=== PATIENT | female | born 1945 | race American Indian/Alaskan Native ===

== ENCOUNTER 2017-02-01 23:03 | Inpatient (IN) | payer SELFPAY ==
[2017-02-01] MEDS ORDERED: DUONEB *Not for PRN Use IH ONE (23:35)
[2017-02-01] MEDS ORDERED: NACL 0.9% 1000 ML 1,000 ML ONE (23:42)
[2017-02-01] MEDS ORDERED: QUELICIN IV ONE (23:46)
[2017-02-02] MEDS ORDERED: DIPRIVAN 10 MG/ML 1,000 MG/100 ML BOTTLE IV ONE
--- NOTE | 2017-02-02 00:01 | Emergency Department Report ---
ED Shortness of Breath HPI - General Chief Complaint: Dyspnea/Respdistress Stated Complaint: DIFFICULTY IN BREATHING Time Seen by Provider: 02/01/17 23:55 Source: patient Mode of arrival: Wheelchair Limitations: No Limitations - History of Present Illness Initial Comments: Patient is a 71-year-old female that presents to er with altered mental status, shortness of breath, chest pain, and respiratory distress. She has no past medical history per family but has not seen a doctor many years. Patient had recently moved to the [facility] 4 months ago. No fever or chills. MD Complaint: shortness of breath, chest pain -: Sudden Severity: severe Pain Scale: 8 Quality: stabbing Consistency: constant Improves With: rest Worsens With: lying flat Associated Symptoms: chest pain, pain with inspiration Treatments Prior to Arrival: none - Related Data Home Oxygen Therapy: No Allergies Allergy/AdvReac Type Severity Reaction Status Date / Time No Known Allergies Allergy Verified 02/01/17 23:49 ED Review of Systems ROS: Stated complaint: DIFFICULTY IN BREATHING Other details as noted in HPI Comment: Unobtainable due to pts medical conditions ED Past Medical Hx - Past Medical History Previous Medical History?: No - Social History Smoking Status: Unknown if ever smoked ED Physical Exam - General Limitations: Language Barrier, Altered Mental Status General appearance: alert, in distress - Head Head exam: Present: atraumatic, normocephalic - Eye Eye exam: Present: normal appearance, PERRL Pupils: Present: normal accommodation - Respiratory Respiratory exam: Present: respiratory distress, wheezes, rhonchi, accessory muscle use, decreased breath sounds, other (supraclavicular retractions noted. Intercostal retractions noted) - Cardiovascular Cardiovascular Exam: Present: normal rhythm, tachycardia - GI/Abdominal GI/Abdominal exam: Present: soft - Rectal Rectal exam: Present: deferred - Extremities Exam Extremities exam: Present: normal inspection, full ROM - Back Exam Back exam: Present: normal inspection, full ROM - Neurological Exam Neurological exam: Present: altered - Skin Skin exam: Present: warm, diaphoretic, pallor ED Course Vital Signs 02/01/17 02/01/17 02/02/17 23:20 23:47 00:01 Temperature 98.1 F Pulse Rate 126 H 132 H 113 H Respiratory 18 32 H 18 Rate Blood Pressure 243/154 240/154 202/122 Blood Pressure [Left] O2 Sat by Pulse 76 L 89 Oximetry 02/02/17 02/02/17 02/02/17 00:15 00:30 00:45 Temperature Pulse Rate 105 H 103 H 101 H Respiratory 14 17 17 Rate Blood Pressure 142/99 133/91 144/96 Blood Pressure [Left] O2 Sat by Pulse Oximetry 02/02/17 02/02/17 02/02/17 00:46 01:00 01:15 Temperature Pulse Rate 100 H 100 H 97 H Respiratory 477 H 15 17 Rate Blood Pressure 149/96 151/96 155/95 Blood Pressure [Left] O2 Sat by Pulse 100 Oximetry 02/02/17 02/02/17 02/02/17 01:30 01:45 02:00 Temperature Pulse Rate 96 H 96 H 91 H Respiratory 16 15 14 Rate Blood Pressure 142/93 176/107 141/83 Blood Pressure [Left] O2 Sat by Pulse Oximetry 02/02/17 02/02/17 02/02/17 02:15 02:23 02:30 Temperature Pulse Rate 91 H 100 H 90 Respiratory 14 477 H 14 Rate Blood Pressure 140/84 149/96 157/98 Blood Pressure [Left] O2 Sat by Pulse 100 Oximetry 02/02/17 02/02/17 02/02/17 02:45 03:00 03:15 Temperature Pulse Rate 91 H 89 96 H Respiratory 14 14 14 Rate Blood Pressure 165/104 160/97 186/111 Blood Pressure [Left] O2 Sat by Pulse Oximetry 02/02/17 02/02/17 02/02/17 03:55 04:19 04:30 Temperature Pulse Rate 100 H 107 H 100 H Respiratory 18 15 16 Rate Blood Pressure 162/99 162/101 Blood Pressure 183/102 [Left] O2 Sat by Pulse 99 Oximetry - Reevaluation(s) Reevaluation #1: 02/02/17 0050. Patient intubated. Oxygenation good. Lasix given Reevaluation #2: 02/02/17 03:00. Lung sounds have improved. D-dimer elevated awaiting VQ scan - Intubation Time Out Performed: Yes Sedative: Versed Paralytic: Succinylcholine Laryngoscope: Marizol Size: 3 ET Tube Size: 7.5 Tube Secured Depth (cm): 23 Tube Secured Location: teeth Tube Placement Confirmation: visualized tube passing t, equal breath sounds bilat, no breath sounds over epi, confirmation by capnometr Patient Tolerated Procedure: well, other Intubation Complications: none Additional Comments: Patient intubated due to hypoxia and work to breathe. Positive retractions. ED Medical Decision Making - Lab Data Result diagrams: 02/01/17 Unknown 02/01/17 Unknown - EKG Data -: EKG Interpreted by Me EKG shows normal: sinus rhythm Rate: tachycardia - EKG Data Interpretation: LVH - Radiology Data Radiology results: image reviewed Critical Care Time: Yes Critical care time in (mins) excluding proc time.: 60 (60 minutes) Critical care attestation.: If time is entered above; I have spent that time in minutes in the direct care of this critically ill patient, excluding procedure time. Critical Care Time: 60 minutes spent with patient separate from procedure time. ED Disposition Clinical Impression: Respiratory failure, Shortness of breath, Hypoxia, Respiratory distress, CHF exacerbation, Pneumonia, Acute renal insufficiency, Elevated lactic acid level Disposition: OP ADMIT IP TO THIS HOSP Is pt being admited?: Yes Does the pt Need Aspirin: No Condition: Critical Instructions: Bacterial Pneumonia (ED)
[2017-02-02] MEDS ORDERED: NACL 0.9% 1000 ML 1,000 ML IV ONE (00:02)
[2017-02-02] MEDS ORDERED: VERSED IV ONE ×2 (00:02→23:45)
[2017-02-02] MEDS: DIPRIVAN 10 MG/ML 1,000 MG/100 ML BOTTLE IV SCH ×3 (00:06→14:35)
[2017-02-02] MEDS ORDERED: LOPRESSOR IV ONE ×2 (00:10→02:30)
[2017-02-02 00:14] LABS: Basophils % (Auto) 0.9 % (0.0-1.8); Eosinophils % (Auto) 3.1 % (0.0-4.3); Hematocrit 39.7 % (30.3-42.9); Hemoglobin 12.7 gm/dl (10.1-14.3); Mean Corpuscular HGB Conc 32 % (30-34); Mean Corpuscular Hemoglobin 28 pg (28-32); Mean Corpuscular Volume 87 fl (79-97); Red Blood Count 4.56 M/mm3 (3.65-5.03); Red Cell Distribution Width 15.1 % (13.2-15.2); White Blood Count 10.2 K/mm3 (4.5-11.0)
[2017-02-02 00:22] LABS: Platelet Count 150 K/mm3 (140-440)
[2017-02-02] MEDS ORDERED: ADRENALIN ONE (00:24)
[2017-02-02] MEDS ORDERED: CALCIUM CHLORIDE IV ONE (00:24)
[2017-02-02] MEDS ORDERED: SODIUM BICARBONATE IV ONE (00:24)
[2017-02-02] MEDS ORDERED: VASELINE LIP THERAPY TP PRN ×2 (00:31→02:22)
[2017-02-02] MEDS ORDERED: ARTIFICIAL TEARS OPHTH OINT OU PRN ×2 (00:31→02:22)
[2017-02-02] MEDS ORDERED: QUELICIN IV ONE (00:51)
[2017-02-02] MEDS ORDERED: VERSED IV NR ×3 (00:55→01:00)
[2017-02-02 01:04] LABS: ISTAT Base Excess 0; ISTAT HCO3 26.8; ISTAT PCO2 53.9 (35-45); ISTAT PH 7.305 (7.35-7.45); ISTAT PO2 371 (80-105); ISTAT SO2 100; ISTAT TCO2 28
[2017-02-02 01:24] LABS: Albumin 4.2 g/dL (3.9-5); Albumin/Globulin Ratio 1.2 %; Bilirubin,Total 0.4 mg/dL (0.1-1.2); Calcium 9.2 mg/dL (8.4-10.2); Chloride 101.3 mmol/L (98-107); Potassium 4.1 mmol/L (3.6-5.0); Total Protein 7.6 g/dL (6.3-8.2)
[2017-02-02] MEDS ORDERED: LASIX IV ONE ×2 (01:52→01:56)
[2017-02-02] MEDS ORDERED: LASIX ONE (01:55)
--- NOTE | 2017-02-02 04:00 | Cat Scan Report ---
FINAL REPORT EXAM: CT HEAD/BRAIN WO CON HISTORY: ams TECHNIQUE: Routine axial imaging was obtained of the brain without IV contrast. FINDINGS: There [id number] generalized volume loss. There is diminished attenuation of the periventricular and deep white matter compatible with chronic microvascular disease changes. There is no evidence of acute stroke or hemorrhage. The basal cisterns appear normal. The visualized sinuses are clear. The mastoid air cells are well pneumatized. The calvarium appears intact. IMPRESSION: [id number] atrophy with severe chronic ischemic white matter changes. No evidence of acute stroke or hemorrhage.
[2017-02-02] MEDS ORDERED: PROVENTIL IH ONE ×2 (04:24→09:44)
--- NOTE | 2017-02-02 05:05 | XRay Report ---
FINAL REPORT EXAM: XR CHEST 1V AP HISTORY: sob. post intubation TECHNIQUE: AP portable view(s) of the chest obtained. Note: Examination was obtained on 02/01/2017 but not submitted for interpretation until 02/02/2017 PRIORS: None. FINDINGS: Endotracheal tube terminates approximately 7 cm from the angel. An enteric tube courses below the diaphragm and off of the inferior field of view. Heart size is within normal limits for technique. Prominent aortic arch, which may be due to patient rotation or tortuosity. No mediastinal shift. No pneumothorax. The right costophrenic angle is excluded from the field of view. No significant pleural effusion identified. Ill-defined right upper and left lower lung opacities. IMPRESSION: Satisfactory appearance of support apparatus. Ill-defined opacities in the right upper and left lower lungs may represent infection in the proper clinical setting. Chest radiographic follow-up is suggested.
[2017-02-02] MEDS ORDERED: ZOSYN/NS 2.25 GM/50ML 2.25 GM/50 ML BAG IV ONE (05:29)
[2017-02-02 05:58] LABS: ISTAT Base Excess 3; ISTAT HCO3 26.8; ISTAT PCO2 39.3 (35-45); ISTAT PH 7.442 (7.35-7.45); ISTAT PO2 69 (80-105); ISTAT SO2 94; ISTAT TCO2 28
[2017-02-02] MEDS: HEPARIN SUB-Q SCH ×3 (10:00→22:18)
[2017-02-02] MEDS ORDERED: HEPARIN ONE (10:01)
--- NOTE | 2017-02-02 11:46 | History and Physical Report ---
History of Present Illness Date of examination: 02/02/17 Date of admission: 02/02/17 07:35 Chief complaint: Shortness of breath History of present illness: 71-year-old -[place] female brought in via EMS for shortness of breath, altered mental status. I couldn't get any history or review of systems because the patient is intubated. I couldn't get in touch with the family, I called her son at [phone] but he didn't pickup his phone. Per ED report patient presented with shortness of breath, didn't have any past medical history, didn' t see a doctor for many years, she came from [place] 4 months ago. Past History Past Medical History: No medical history, other (couldn't obtained because of intubation and no family member) Past Surgical History: No surgical history, Other (couldn't obtained because of intubation and no family member) Social history: other (couldn't obtained because of intubation and no family member) Family history: other (couldn't obtained because of intubation and no family member) Medications and Allergies Allergies Allergy/AdvReac Type Severity Reaction Status Date / Time No Known Allergies Allergy Verified 02/01/17 23:49 Active Meds: Active Medications Heparin Sodium (Porcine) (Heparin) 5,000 unit SUB-Q Q8HR KATY Last Admin: 02/02/17 10:00 Dose: 5,000 unit Hydrophilic Ointment (Vaseline Lip Therapy) 1 applic TP Q2HR PRN PRN Reason: Dry Lips Propofol (Diprivan 10 Mg/Ml) 1,000 mg in 100 mls @ 1.83 mls/hr IV TITR KATY; 5 MCG/KG/MIN PRN Reason: Protocol Last Admin: 02/02/17 09:34 Dose: 40 mcg/kg/min, 14.64 mls/hr Multi-Ingred Cream/Lotion/Oil/Oint (Artificial Tears Ophth Oint) 1 applic OU Q4HR PRN PRN Reason: Dry Eye(s) Review of Systems ROS unobtainable: due to endotracheal tube (couldn't obtained because of intubation and no family member) Exam - Physical Exam Narrative exam: Patient is intubated, patient is awake and she can answer yes/ no questions by nodding her head. The patient appeared well nourished and normally developed. Vital signs as documented. Head exam is unremarkable. No scleral icterus . Neck is without jugular venous distension, thyromegaly, or carotid bruits. Lungs wheezing all over the chest. Cardiac exam reveals regular rate and Rhythm. First and second heart sounds normal. No murmurs, rubs or gallops. Abdominal exam reveals normal bowel sounds, no masses, no organomegaly and no aortic enlargement. Extremities are nonedematous and both femoral and pedal pulses are normal. 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 by nodding her head - Constitutional Vitals: Temp Pulse Resp BP Pulse Ox 98.1 F 92 H 14 126/80 100 02/01/17 23:20 02/02/17 11:15 02/02/17 11:15 02/02/17 11:15 02/02/17 11:15 Results - Labs CBC & Chem 7: 02/01/17 Unknown 02/01/17 Unknown Labs: Laboratory Last Values WBC 10.2 K/mm3 (4.5-11.0) 02/01/17 Unknown RBC 4.56 M/mm3 (3.65-5.03) 02/01/17 Unknown Hgb 12.7 gm/dl (10.1-14.3) 02/01/17 Unknown Hct 39.7 % (30.3-42.9) 02/01/17 Unknown MCV 87 fl (79-97) 02/01/17 Unknown MCH 28 pg (28-32) 02/01/17 Unknown MCHC 32 % (30-34) 02/01/17 Unknown RDW 15.1 % (13.2-15.2) 02/01/17 Unknown Plt Count 150 K/mm3 (140-440) 02/01/17 Unknown Lymph % (Auto) 19.8 % (13.4-35.0) 02/01/17 Unknown [place] % (Auto) 6.6 % (0.0-7.3) 02/01/17 Unknown Eos % (Auto) 3.1 % (0.0-4.3) 02/01/17 Unknown Baso % (Auto) 0.9 % (0.0-1.8) 02/01/17 Unknown Lymph # 2.0 K/mm3 (1.2-5.4) 02/01/17 Unknown [place] # 0.7 K/mm3 (0.0-0.8) 02/01/17 Unknown Eos # 0.3 K/mm3 (0.0-0.4) 02/01/17 Unknown Baso # 0.1 K/mm3 (0.0-0.1) 02/01/17 Unknown Seg Neutrophils % 69.6 % (40.0-70.0) 02/01/17 Unknown Seg Neutrophils # 7.1 K/mm3 (1.8-7.7) 02/01/17 Unknown D-Dimer 1146.84 ng/mlDDU (0-234) H 02/01/17 Unknown POC ABG pH 7.442 (7.35-7.45) 02/02/17 05:54 POC ABG pCO2 39.3 (35-45) 02/02/17 05:54 POC ABG pO2 69 (80-105) L 02/02/17 05:54 POC ABG HCO3 26.8 02/02/17 05:54 POC ABG Total CO2 28 02/02/17 05:54 POC ABG O2 Sat 94 02/02/17 05:54 POC ABG Base Excess 3 02/02/17 05:54 FiO2 40 % 02/02/17 05:54 Sodium 144 mmol/L (137-145) 02/01/17 Unknown Potassium 4.1 mmol/L (3.6-5.0) 02/01/17 Unknown Chloride 101.3 mmol/L (98-107) 02/01/17 Unknown Carbon Dioxide 20 mmol/L (22-30) L 02/01/17 Unknown Anion Gap 27 mmol/L 02/01/17 Unknown BUN 29 mg/dL (7-17) H 02/01/17 Unknown Creatinine 1.5 mg/dL (0.7-1.2) H 02/01/17 Unknown Estimated GFR 42 ml/min 02/01/17 Unknown BUN/Creatinine Ratio 19 % 02/01/17 Unknown Glucose 244 mg/dL (65-100) H 02/01/17 Unknown Lactic Acid 3.10 mmol/L (0.7-2.0) H* 02/01/17 Unknown Calcium 9.2 mg/dL (8.4-10.2) 02/01/17 Unknown Total Bilirubin 0.40 mg/dL (0.1-1.2) 02/01/17 Unknown AST 168 units/L (5-40) H 02/01/17 Unknown ALT 148 units/L (7-56) H 02/01/17 Unknown Alkaline Phosphatase 83 units/L (35-129) 02/01/17 Unknown Total Creatine Kinase 79 units/L (30-135) 02/01/17 Unknown CK-MB (CK-2) 3.0 ng/mL (0.0-4.0) 02/01/17 Unknown CK-MB (CK-2) Rel Index 3.7 (0-4) 02/01/17 Unknown Troponin T 0.020 ng/mL (0.00-0.029) 02/01/17 Unknown NT-Pro-B Natriuret Pep 9824 pg/mL (0-900) H 02/01/17 Unknown Total Protein 7.6 g/dL (6.3-8.2) 02/01/17 Unknown Albumin 4.2 g/dL (3.9-5) 02/01/17 Unknown Albumin/Globulin Ratio 1.2 % 02/01/17 Unknown Assessment and Plan Assessment and plan: Acute hypoxic respiratory failure Sepsis Pneumonia Acute kidney injury Lactic acidosis - Patient is intubated and on mechanical ventilation - Patient is managed according to sepsis protocol with IV antibiotics and IV fluids - Patient is on Solu-Medrol, DuoNeb's DVT prophylaxis -Heparin Disposition - Admit to ICU Advance Directives: Yes VTE prophylaxis?: Chemical Plan of care discussed with patient/family: Yes
[2017-02-02] MEDS ORDERED: VANCOMYCIN PHARMACY TO DOSE IV SCH (12:00)
[2017-02-02] MEDS: ZOSYN/NS 3.375GM/50ML 3.375 GM/50 ML BAG IV SCH ×2 (13:37→19:09)
--- NOTE | 2017-02-02 14:32 | Consultation ---
History of Present Illness Consult date: 02/02/17 Requesting physician: ROD FELIZ Reason for consult: other History of present illness: 71 y/o female, apparently brought in by family for altered mental status. Intubated in ED and placed on diprovan 40. CXR reveals cardiomegaly and what appears to be pulmonary edema. Patient is comatose from sedation, down to 40% FiO2 with sat of 100. No family at bedside. Apparently just moved to [place] from [place] 4 months ago. Past History Past Medical History: No medical history, other (couldn't obtained because of intubation and no family member) Past Surgical History: No surgical history, Other (couldn't obtained because of intubation and no family member) Social history: other (couldn't obtained because of intubation and no family member) Family history: other (couldn't obtained because of intubation and no family member) Medications and Allergies Allergies Allergy/AdvReac Type Severity Reaction Status Date / Time No Known Allergies Allergy Verified 02/01/17 23:49 Active Meds: Active Medications Albuterol/Ipratropium (Duoneb *Not For Prn Use*) 1 ampul IH Q4HRT KATY Heparin Sodium (Porcine) (Heparin) 5,000 unit SUB-Q Q8HR KATY Last Admin: 02/02/17 10:00 Dose: 5,000 unit Hydrophilic Ointment (Vaseline Lip Therapy) 1 applic TP Q2HR PRN PRN Reason: Dry Lips Propofol (Diprivan 10 Mg/Ml) 1,000 mg in 100 mls @ 1.83 mls/hr IV TITR KATY; 5 MCG/KG/MIN PRN Reason: Protocol Last Admin: 02/02/17 09:34 Dose: 40 mcg/kg/min, 14.64 mls/hr Piperacillin Sod/Tazobactam Sod (Zosyn/Ns 3.375gm/50ml) 3.375 gm in 50 mls @ 100 mls/hr IV Q6HR KATY PRN Reason: Protocol Last Admin: 02/02/17 13:37 Dose: 100 mls/hr Vancomycin HCl 1,250 mg/ (Sodium Chloride) 262.5 mls @ 166.667 mls/hr IV ONCE ONE Stop: 02/02/17 16:34 Methylprednisolone Sodium Succinate (Solu-Medrol) 60 mg IV Q8HR KATY Multi-Ingred Cream/Lotion/Oil/Oint (Artificial Tears Ophth Oint) 1 applic OU Q4HR PRN PRN Reason: Dry Eye(s) Vancomycin HCl (Vancomycin Pharmacy To Dose) 1 each IV PKCONSULT KATY PRN Reason: Protocol Review of Systems ROS unobtainable: due to endotracheal tube, due to mental status Physical Examination Vital signs: Vital Signs Temp Pulse Resp BP Pulse Ox 98.1 F 126 H 18 243/154 76 L 02/01/17 23:20 02/01/17 23:20 02/01/17 23:20 02/01/17 23:20 02/01/17 23:20 General appearance: comatose (secondary to sedation) Eyes: non-icteric ENT: other (orally intubated and sedated) Effort: normal Ascultation: Bilateral: diminished breath sounds, rales Percussion: Bilateral: not dull Cardiovascular: regular rate and rhythm Gastrointestinal: soft, non-tender Extremities: edema Results - Laboratory Findings CBC and BMP: 02/01/17 Unknown 02/01/17 Unknown ABG POC ABG pH 7.442 (7.35-7.45) 02/02/17 05:54 POC ABG pCO2 39.3 (35-45) 02/02/17 05:54 POC ABG pO2 69 (80-105) L 02/02/17 05:54 POC ABG HCO3 26.8 02/02/17 05:54 POC ABG Total CO2 28 02/02/17 05:54 POC ABG O2 Sat 94 02/02/17 05:54 PT/INR, D-dimer D-Dimer 1146.84 ng/mlDDU (0-234) H 02/01/17 Unknown Abnormal lab findings: Abnormal Labs 02/01/17 02/01/17 02/01/17 Unknown Unknown Unknown D-Dimer 1146.84 H POC ABG pH POC ABG pCO2 POC ABG pO2 Carbon Dioxide 20 L BUN 29 H Creatinine 1.5 H Glucose 244 H Lactic Acid 3.10 H* AST 168 H ALT 148 H NT-Pro-B Natriuret Pep 9824 H 02/02/17 02/02/17 00:46 05:54 D-Dimer POC ABG pH 7.305 L POC ABG pCO2 53.9 H POC ABG pO2 371 H 69 L Carbon Dioxide BUN Creatinine Glucose Lactic Acid AST ALT NT-Pro-B Natriuret Pep - Diagnostic Findings Chest x-ray: image reviewed Assessment and Plan 71 y/o female with encephalopathy and acute respiratory failure. 1. Will ask nursing to wean Diprovan therapy for RASS of 2 or Gonzalez of 0 2. Strict I/O therapy 3. Suggest echo 4. Also will order CT of chest, noncontrast given diffuse nature/presentation of lung disease 5. Ok with abx therapy, would stop steroids, not sure what those have been added for. CCT 31 minutes
[2017-02-02] MEDS: DUONEB *Not for PRN Use IH SCH ×3 (14:49→23:27)
[2017-02-02] MEDS ORDERED: VANCOMYCIN 1,250 MG in NACL 0.9% 250ML 250 ML IV ONE (15:00)
[2017-02-02] MEDS ORDERED: QUELICIN ONE (23:45)
[2017-02-03] MEDS: DIPRIVAN 10 MG/ML 1,000 MG/100 ML BOTTLE IV SCH ×2 (02:03→23:44)
[2017-02-03] MEDS: ZOSYN/NS 3.375GM/50ML 3.375 GM/50 ML BAG IV SCH (02:18)
[2017-02-03] MEDS: DUONEB *Not for PRN Use IH SCH ×4 (03:33→18:04)
[2017-02-03] MEDS: HEPARIN SUB-Q SCH ×3 (05:57→23:43)
--- NOTE | 2017-02-03 07:36 | XRay Report ---
Portable chest: Followup respiratory failure. Comparison is made to prior exam of February 02. The vascular pattern appears generally improved with only mild changes of interstitial edema in the lower right lung. There is evidence of persistent left effusion with no significant right effusion identified. The heart is enlarged but is no overt vascular congestion. Endotracheal and nasogastric tubes remain in good positions. Impressions: Resolving pulmonary edema.
[2017-02-03] MEDS: PEPCID IV SCH (09:44)
[2017-02-03] MEDS ORDERED: ZOSYN/NS 3.375GM/50ML 3.375 GM/50 ML BAG IV SCH (10:00)
[2017-02-03] MEDS ORDERED: Fluarix Quad 2017-2018(36 MOS+ IM ONE (12:00)
[2017-02-03] MEDS ORDERED: PNEUMOVAX 23 IM ONE (12:00)
--- NOTE | 2017-02-03 14:22 | Nuclear Medicine Report ---
Perfusion lung scan: SOB. Perfusion imaging with multiple projections demonstrates a generally unremarkable distribution of radionuclide considering an enlarged heart. There is however a linear deficiency in the region of the right hilum. No other significant findings. Impressions: Low probability of pulmonary embolus.
--- NOTE | 2017-02-03 14:44 | Progress Note ---
Assessment and Plan Imp: 1. Acute CHF/pulm edema 2. Acute respiratory failure, hypoxia 3. Lactic acidosis 2/2 above 4. Chest pain, r/o ischemic heart disease 5. STEPHANIE Rec: 1. Extubate; she meets all criteria 2. Add Lopressor PO BID 3. Repeat lactic acid and another set of cardiac enzymes; repeat CBC, CMP in AM 4. D/c steroids and ABX 5. Echo YULISSA 6. DVT and GI PPx 7. Further plans pending Echo CCT 31 minutes Plan of care reviewed w/ patient's family, they understand/agree Subjective Date of service: 02/03/17 Principal diagnosis: Acute respiratory failure Interval history: No events. On PSV 12/12 all morning with RSBI less than 105, normal RR, good TVs , no SOB, respiratory distress or other complaints. She is wide awake, off sedation. Active Medications Albuterol (Proventil) 2.5 mg IH Q6HRT PRN PRN Reason: Shortness Of Breath Famotidine (Pepcid) 20 mg IV DAILY [facility] Last Admin: 02/03/17 09:44 Dose: 20 mg Heparin Sodium (Porcine) (Heparin) 5,000 unit SUB-Q Q8HR [facility] Last Admin: 02/03/17 05:57 Dose: 5,000 unit Hydrophilic Ointment (Vaseline Lip Therapy) 1 applic TP Q2HR PRN PRN Reason: Dry Lips Metoprolol Tartrate (Lopressor) 25 mg PO BID [facility] Multi-Ingred Cream/Lotion/Oil/Oint (Artificial Tears Ophth Oint) 1 applic OU Q4HR PRN PRN Reason: Dry Eye(s) Objective Vital Signs - 12hr 02/03/17 02/03/17 02/03/17 02:41 02:51 03:00 Temperature Pulse Rate 84 77 78 Pulse Rate [ Anterior Bilateral Throughout] Pulse Rate [ Dorsalis Pedis] Pulse Rate [ From Monitor] Pulse Rate [ Posterior Bilateral Bases ] Respiratory 14 14 17 Rate Respiratory Rate [Anterior Bilateral Throughout] Respiratory Rate [Posterior Bilateral Bases] Blood Pressure 145/89 166/101 164/102 O2 Sat by Pulse 99 100 98 Oximetry 02/03/17 02/03/17 02/03/17 03:04 03:11 03:21 Temperature Pulse Rate 71 72 Pulse Rate [ Anterior Bilateral Throughout] Pulse Rate [ Dorsalis Pedis] Pulse Rate [ From Monitor] Pulse Rate [ Posterior Bilateral Bases ] Respiratory 17 15 15 Rate Respiratory Rate [Anterior Bilateral Throughout] Respiratory Rate [Posterior Bilateral Bases] Blood Pressure 164/102 158/93 O2 Sat by Pulse 99 99 100 Oximetry 02/03/17 02/03/17 02/03/17 03:27 03:30 03:33 Temperature Pulse Rate 73 72 Pulse Rate [ 73 Anterior Bilateral Throughout] Pulse Rate [ Dorsalis Pedis] Pulse Rate [ From Monitor] Pulse Rate [ Posterior Bilateral Bases ] Respiratory 14 Rate Respiratory 15 Rate [Anterior Bilateral Throughout] Respiratory Rate [Posterior Bilateral Bases] Blood Pressure 158/93 147/88 O2 Sat by Pulse 100 99 Oximetry 02/03/17 02/03/17 02/03/17 03:39 03:41 03:51 Temperature 97.9 F Pulse Rate 73 75 Pulse Rate [ Anterior Bilateral Throughout] Pulse Rate [ Dorsalis Pedis] Pulse Rate [ From Monitor] Pulse Rate [ Posterior Bilateral Bases ] Respiratory 15 14 Rate Respiratory Rate [Anterior Bilateral Throughout] Respiratory Rate [Posterior Bilateral Bases] Blood Pressure 147/88 135/83 O2 Sat by Pulse 99 99 Oximetry 02/03/17 02/03/17 02/03/17 04:00 04:11 04:21 Temperature Pulse Rate 74 73 71 Pulse Rate [ Anterior Bilateral Throughout] Pulse Rate [ Dorsalis Pedis] Pulse Rate [ From Monitor] Pulse Rate [ Posterior Bilateral Bases ] Respiratory 14 14 14 Rate Respiratory Rate [Anterior Bilateral Throughout] Respiratory Rate [Posterior Bilateral Bases] Blood Pressure 129/81 129/81 144/91 O2 Sat by Pulse 98 100 100 Oximetry 02/03/17 02/03/17 02/03/17 04:30 04:41 04:51 Temperature Pulse Rate 70 67 69 Pulse Rate [ Anterior Bilateral Throughout] Pulse Rate [ Dorsalis Pedis] Pulse Rate [ From Monitor] Pulse Rate [ Posterior Bilateral Bases ] Respiratory 15 15 15 Rate Respiratory Rate [Anterior Bilateral Throughout] Respiratory Rate [Posterior Bilateral Bases] Blood Pressure 145/86 145/86 138/85 O2 Sat by Pulse 99 100 100 Oximetry 02/03/17 02/03/17 02/03/17 05:00 05:05 05:11 Temperature Pulse Rate 69 68 Pulse Rate [ Anterior Bilateral Throughout] Pulse Rate [ 77 Dorsalis Pedis] Pulse Rate [ From Monitor] Pulse Rate [ Posterior Bilateral Bases ] Respiratory 15 100 H 14 Rate Respiratory Rate [Anterior Bilateral Throughout] Respiratory Rate [Posterior Bilateral Bases] Blood Pressure 135/85 135/85 O2 Sat by Pulse 99 100 100 Oximetry 02/03/17 02/03/17 02/03/17 05:21 05:30 05:41 Temperature Pulse Rate 69 68 67 Pulse Rate [ Anterior Bilateral Throughout] Pulse Rate [ Dorsalis Pedis] Pulse Rate [ From Monitor] Pulse Rate [ Posterior Bilateral Bases ] Respiratory 14 15 14 Rate Respiratory Rate [Anterior Bilateral Throughout] Respiratory Rate [Posterior Bilateral Bases] Blood Pressure 138/80 138/84 138/84 O2 Sat by Pulse 100 99 100 Oximetry 02/03/17 02/03/17 02/03/17 05:51 06:00 06:11 Temperature Pulse Rate 68 68 67 Pulse Rate [ Anterior Bilateral Throughout] Pulse Rate [ Dorsalis Pedis] Pulse Rate [ From Monitor] Pulse Rate [ Posterior Bilateral Bases ] Respiratory 15 16 16 Rate Respiratory Rate [Anterior Bilateral Throughout] Respiratory Rate [Posterior Bilateral Bases] Blood Pressure 141/84 139/85 139/85 O2 Sat by Pulse 100 100 99 Oximetry 02/03/17 02/03/17 02/03/17 06:21 06:30 06:41 Temperature Pulse Rate 70 68 68 Pulse Rate [ Anterior Bilateral Throughout] Pulse Rate [ Dorsalis Pedis] Pulse Rate [ From Monitor] Pulse Rate [ Posterior Bilateral Bases ] Respiratory 16 17 17 Rate Respiratory Rate [Anterior Bilateral Throughout] Respiratory Rate [Posterior Bilateral Bases] Blood Pressure 155/98 153/96 155/98 O2 Sat by Pulse 98 99 99 Oximetry 02/03/17 02/03/17 02/03/17 06:51 07:00 07:11 Temperature Pulse Rate 67 75 72 Pulse Rate [ Anterior Bilateral Throughout] Pulse Rate [ Dorsalis Pedis] Pulse Rate [ From Monitor] Pulse Rate [ Posterior Bilateral Bases ] Respiratory 17 17 15 Rate Respiratory Rate [Anterior Bilateral Throughout] Respiratory Rate [Posterior Bilateral Bases] Blood Pressure 151/91 158/100 153/96 O2 Sat by Pulse 100 98 99 Oximetry 02/03/17 02/03/17 02/03/17 07:21 07:30 07:41 Temperature Pulse Rate 68 71 75 Pulse Rate [ Anterior Bilateral Throughout] Pulse Rate [ Dorsalis Pedis] Pulse Rate [ From Monitor] Pulse Rate [ Posterior Bilateral Bases ] Respiratory 16 15 15 Rate Respiratory Rate [Anterior Bilateral Throughout] Respiratory Rate [Posterior Bilateral Bases] Blood Pressure 164/98 158/102 158/102 O2 Sat by Pulse 99 98 99 Oximetry 02/03/17 02/03/17 02/03/17 07:51 07:55 08:00 Temperature 98.3 F Pulse Rate 74 84 77 Pulse Rate [ Anterior Bilateral Throughout] Pulse Rate [ Dorsalis Pedis] Pulse Rate [ 81 From Monitor] Pulse Rate [ Posterior Bilateral Bases ] Respiratory 16 20 Rate Respiratory Rate [Anterior Bilateral Throughout] Respiratory Rate [Posterior Bilateral Bases] Blood Pressure 158/100 158/100 164/99 O2 Sat by Pulse 100 99 97 Oximetry 02/03/17 02/03/17 02/03/17 08:11 08:13 08:21 Temperature Pulse Rate 80 80 Pulse Rate [ Anterior Bilateral Throughout] Pulse Rate [ Dorsalis Pedis] Pulse Rate [ From Monitor] Pulse Rate [ 80 Posterior Bilateral Bases ] Respiratory 20 20 Rate Respiratory Rate [Anterior Bilateral Throughout] Respiratory 20 Rate [Posterior Bilateral Bases] Blood Pressure 164/99 158/102 O2 Sat by Pulse 98 97 Oximetry 02/03/17 02/03/17 02/03/17 08:31 08:41 08:51 Temperature Pulse Rate 82 81 82 Pulse Rate [ Anterior Bilateral Throughout] Pulse Rate [ Dorsalis Pedis] Pulse Rate [ From Monitor] Pulse Rate [ Posterior Bilateral Bases ] Respiratory 20 19 19 Rate Respiratory Rate [Anterior Bilateral Throughout] Respiratory Rate [Posterior Bilateral Bases] Blood Pressure 158/102 158/102 158/102 O2 Sat by Pulse 96 98 98 Oximetry 02/03/17 02/03/17 02/03/17 09:00 09:11 09:21 Temperature Pulse Rate 81 84 83 Pulse Rate [ Anterior Bilateral Throughout] Pulse Rate [ Dorsalis Pedis] Pulse Rate [ From Monitor] Pulse Rate [ Posterior Bilateral Bases ] Respiratory 20 22 20 Rate Respiratory Rate [Anterior Bilateral Throughout] Respiratory Rate [Posterior Bilateral Bases] Blood Pressure 167/98 167/98 164/99 O2 Sat by Pulse 98 98 100 Oximetry 02/03/17 02/03/17 02/03/17 09:31 09:41 09:51 Temperature Pulse Rate 82 92 H 82 Pulse Rate [ Anterior Bilateral Throughout] Pulse Rate [ Dorsalis Pedis] Pulse Rate [ From Monitor] Pulse Rate [ Posterior Bilateral Bases ] Respiratory 16 22 21 Rate Respiratory Rate [Anterior Bilateral Throughout] Respiratory Rate [Posterior Bilateral Bases] Blood Pressure 164/99 164/99 167/98 O2 Sat by Pulse 98 98 96 Oximetry 02/03/17 02/03/17 02/03/17 10:00 10:11 10:20 Temperature Pulse Rate 91 H 86 87 Pulse Rate [ Anterior Bilateral Throughout] Pulse Rate [ Dorsalis Pedis] Pulse Rate [ From Monitor] Pulse Rate [ Posterior Bilateral Bases ] Respiratory 20 22 22 Rate Respiratory Rate [Anterior Bilateral Throughout] Respiratory Rate [Posterior Bilateral Bases] Blood Pressure 163/100 163/100 163/100 O2 Sat by Pulse 98 97 97 Oximetry 02/03/17 02/03/17 02/03/17 10:31 10:41 10:51 Temperature Pulse Rate 97 H 86 80 Pulse Rate [ Anterior Bilateral Throughout] Pulse Rate [ Dorsalis Pedis] Pulse Rate [ From Monitor] Pulse Rate [ Posterior Bilateral Bases ] Respiratory 23 21 20 Rate Respiratory Rate [Anterior Bilateral Throughout] Respiratory Rate [Posterior Bilateral Bases] Blood Pressure 163/100 163/100 163/100 O2 Sat by Pulse 98 98 99 Oximetry 02/03/17 02/03/17 02/03/17 11:00 11:11 11:21 Temperature Pulse Rate 90 90 83 Pulse Rate [ Anterior Bilateral Throughout] Pulse Rate [ Dorsalis Pedis] Pulse Rate [ From Monitor] Pulse Rate [ Posterior Bilateral Bases ] Respiratory 23 14 19 Rate Respiratory Rate [Anterior Bilateral Throughout] Respiratory Rate [Posterior Bilateral Bases] Blood Pressure 169/101 169/101 169/101 O2 Sat by Pulse 97 100 99 Oximetry 02/03/17 02/03/17 02/03/17 11:31 11:41 11:51 Temperature Pulse Rate 94 H 88 86 Pulse Rate [ Anterior Bilateral Throughout] Pulse Rate [ Dorsalis Pedis] Pulse Rate [ From Monitor] Pulse Rate [ Posterior Bilateral Bases ] Respiratory 16 17 18 Rate Respiratory Rate [Anterior Bilateral Throughout] Respiratory Rate [Posterior Bilateral Bases] Blood Pressure 169/101 169/101 169/101 O2 Sat by Pulse 98 99 99 Oximetry 02/03/17 02/03/17 02/03/17 12:00 12:11 12:21 Temperature 99.0 F Pulse Rate 81 95 H 106 H Pulse Rate [ Anterior Bilateral Throughout] Pulse Rate [ Dorsalis Pedis] Pulse Rate [ From Monitor] Pulse Rate [ Posterior Bilateral Bases ] Respiratory 16 22 19 Rate Respiratory Rate [Anterior Bilateral Throughout] Respiratory Rate [Posterior Bilateral Bases] Blood Pressure 159/92 159/92 159/92 O2 Sat by Pulse 99 99 100 Oximetry 02/03/17 02/03/17 02/03/17 12:31 12:41 12:51 Temperature Pulse Rate 128 H 112 H 98 H Pulse Rate [ Anterior Bilateral Throughout] Pulse Rate [ Dorsalis Pedis] Pulse Rate [ From Monitor] Pulse Rate [ Posterior Bilateral Bases ] Respiratory 34 H 26 H 17 Rate Respiratory Rate [Anterior Bilateral Throughout] Respiratory Rate [Posterior Bilateral Bases] Blood Pressure 159/92 159/92 159/92 O2 Sat by Pulse 93 98 99 Oximetry 02/03/17 02/03/17 02/03/17 12:58 13:00 13:11 Temperature Pulse Rate 103 H 101 H Pulse Rate [ Anterior Bilateral Throughout] Pulse Rate [ Dorsalis Pedis] Pulse Rate [ From Monitor] Pulse Rate [ Posterior Bilateral Bases ] Respiratory 22 26 H Rate Respiratory Rate [Anterior Bilateral Throughout] Respiratory Rate [Posterior Bilateral Bases] Blood Pressure 166/100 166/100 O2 Sat by Pulse 99 98 98 Oximetry 02/03/17 02/03/17 02/03/17 13:21 13:30 13:41 Temperature Pulse Rate 99 H 98 H 95 H Pulse Rate [ Anterior Bilateral Throughout] Pulse Rate [ Dorsalis Pedis] Pulse Rate [ From Monitor] Pulse Rate [ Posterior Bilateral Bases ] Respiratory 20 18 22 Rate Respiratory Rate [Anterior Bilateral Throughout] Respiratory Rate [Posterior Bilateral Bases] Blood Pressure 166/100 163/100 166/100 O2 Sat by Pulse 100 100 98 Oximetry 02/03/17 13:51 Temperature Pulse Rate 111 H Pulse Rate [ Anterior Bilateral Throughout] Pulse Rate [ Dorsalis Pedis] Pulse Rate [ From Monitor] Pulse Rate [ Posterior Bilateral Bases ] Respiratory 18 Rate Respiratory Rate [Anterior Bilateral Throughout] Respiratory Rate [Posterior Bilateral Bases] Blood Pressure 166/100 O2 Sat by Pulse 95 Oximetry Constitutional: other (intubated, critically ill on vent) Eyes: non-icteric ENT: oropharynx moist Neck: supple Effort: normal Ascultation: Bilateral: clear Cardiovascular: regular rate and rhythm (mildly tachy, normal rhythm; no mrg) Gastrointestinal: normoactive bowel sounds, soft, non-tender, non-distended Integumentary: normal Extremities: no cyanosis, no edema, pink and warm, edema Neurologic: normal mental status, non-focal exam, pupils equal and round, CN II- XII normal Psychiatric: mood appropriate, affect normal CBC and BMP: 02/01/17 Unknown 02/01/17 Unknown ABG, PT/INR, D-dimer: ABG POC ABG pH 7.442 (7.35-7.45) 02/02/17 05:54 POC ABG pCO2 39.3 (35-45) 02/02/17 05:54 POC ABG pO2 69 (80-105) L 02/02/17 05:54 POC ABG HCO3 26.8 02/02/17 05:54 POC ABG Total CO2 28 02/02/17 05:54 POC ABG O2 Sat 94 02/02/17 05:54 PT/INR, D-dimer D-Dimer 1146.84 ng/mlDDU (0-234) H 02/01/17 Unknown Abnormal lab findings: Abnormal Labs 02/01/17 02/01/17 02/01/17 Unknown Unknown Unknown D-Dimer 1146.84 H POC ABG pH POC ABG pCO2 POC ABG pO2 Carbon Dioxide 20 L BUN 29 H Creatinine 1.5 H Glucose 244 H Lactic Acid 3.10 H* AST 168 H ALT 148 H NT-Pro-B Natriuret Pep 9824 H 02/02/17 02/02/17 00:46 05:54 D-Dimer POC ABG pH 7.305 L POC ABG pCO2 53.9 H POC ABG pO2 371 H 69 L Carbon Dioxide BUN Creatinine Glucose Lactic Acid AST ALT NT-Pro-B Natriuret Pep Chest x-ray: report reviewed, image reviewed (clearance of pulm edema)
--- NOTE | 2017-02-03 17:12 | Progress Note ---
Assessment and Plan Assessment and plan: Acute hypoxic respiratory failure Acute CHF, unidentified Acute kidney injury Lactic acidosis - Patient is intubated and on mechanical ventilation - Patient is on Solu-Medrol, DuoNeb's - IV lasix, cardiology consult DVT prophylaxis -Heparin Disposition - monitor in the ICU. will get more history. No family member was in the room. The high probability of a clinically significant, sudden or life threatening deterioration of the [CV, respiratory] system(s) required my full and direct attention, intervention and personal management. The aggregate critical care time was [31] minutes. This time is in addition to time spent performing reported procedures but includes the following: [x] Data Review and interpretation [x] Patient assessment and monitoring of vital signs [x] Documentation [x] Medication orders and management History Interval history: Patient was seen and divided this morning, patient was off sedation and alert, patient was on extubation trial.. Hospitalist Physical - Physical exam Narrative exam: Patient is on extubation trial. The patient appeared well nourished and normally developed. Vital signs as documented. Head exam is unremarkable. No scleral icterus . Neck is without jugular venous distension, thyromegaly, or carotid bruits. Lungs clear to auscultation. Cardiac exam reveals regular rate and Rhythm. First and second heart sounds normal. No murmurs, rubs or gallops. Abdominal exam reveals normal bowel sounds, no masses, no organomegaly and no aortic enlargement. Extremities are nonedematous and both femoral and pedal pulses are normal. MAID SUPERVISOR: Alert and able to answer yes/no questions by nodding her head. - Constitutional Vitals: Temp Pulse Resp BP Pulse Ox 99.3 F 110 H 24 163/104 100 02/03/17 16:00 02/03/17 15:31 02/03/17 15:31 02/03/17 15:31 02/03/17 15:31 Results - Labs CBC & Chem 7: 02/01/17 Unknown 02/01/17 Unknown Labs: Laboratory Last Values WBC 10.2 K/mm3 (4.5-11.0) 02/01/17 Unknown RBC 4.56 M/mm3 (3.65-5.03) 02/01/17 Unknown Hgb 12.7 gm/dl (10.1-14.3) 02/01/17 Unknown Hct 39.7 % (30.3-42.9) 02/01/17 Unknown MCV 87 fl (79-97) 02/01/17 Unknown MCH 28 pg (28-32) 02/01/17 Unknown MCHC 32 % (30-34) 02/01/17 Unknown RDW 15.1 % (13.2-15.2) 02/01/17 Unknown Plt Count 150 K/mm3 (140-440) 02/01/17 Unknown Lymph % (Auto) 19.8 % (13.4-35.0) 02/01/17 Unknown Cloud % (Auto) 6.6 % (0.0-7.3) 02/01/17 Unknown Eos % (Auto) 3.1 % (0.0-4.3) 02/01/17 Unknown Baso % (Auto) 0.9 % (0.0-1.8) 02/01/17 Unknown Lymph # 2.0 K/mm3 (1.2-5.4) 02/01/17 Unknown Cloud # 0.7 K/mm3 (0.0-0.8) 02/01/17 Unknown Eos # 0.3 K/mm3 (0.0-0.4) 02/01/17 Unknown Baso # 0.1 K/mm3 (0.0-0.1) 02/01/17 Unknown Seg Neutrophils % 69.6 % (40.0-70.0) 02/01/17 Unknown Seg Neutrophils # 7.1 K/mm3 (1.8-7.7) 02/01/17 Unknown D-Dimer 1146.84 ng/mlDDU (0-234) H 02/01/17 Unknown POC ABG pH 7.442 (7.35-7.45) 02/02/17 05:54 POC ABG pCO2 39.3 (35-45) 02/02/17 05:54 POC ABG pO2 69 (80-105) L 02/02/17 05:54 POC ABG HCO3 26.8 02/02/17 05:54 POC ABG Total CO2 28 02/02/17 05:54 POC ABG O2 Sat 94 02/02/17 05:54 POC ABG Base Excess 3 02/02/17 05:54 FiO2 40 % 02/02/17 05:54 Sodium 144 mmol/L (137-145) 02/01/17 Unknown Potassium 4.1 mmol/L (3.6-5.0) 02/01/17 Unknown Chloride 101.3 mmol/L (98-107) 02/01/17 Unknown Carbon Dioxide 20 mmol/L (22-30) L 02/01/17 Unknown Anion Gap 27 mmol/L 02/01/17 Unknown BUN 29 mg/dL (7-17) H 02/01/17 Unknown Creatinine 1.5 mg/dL (0.7-1.2) H 02/01/17 Unknown Estimated GFR 42 ml/min 02/01/17 Unknown BUN/Creatinine Ratio 19 % 02/01/17 Unknown Glucose 244 mg/dL (65-100) H 02/01/17 Unknown Lactic Acid 3.10 mmol/L (0.7-2.0) H* 02/01/17 Unknown Calcium 9.2 mg/dL (8.4-10.2) 02/01/17 Unknown Total Bilirubin 0.40 mg/dL (0.1-1.2) 02/01/17 Unknown AST 168 units/L (5-40) H 02/01/17 Unknown ALT 148 units/L (7-56) H 02/01/17 Unknown Alkaline Phosphatase 83 units/L (35-129) 02/01/17 Unknown Total Creatine Kinase 79 units/L (30-135) 02/01/17 Unknown CK-MB (CK-2) 3.0 ng/mL (0.0-4.0) 02/01/17 Unknown CK-MB (CK-2) Rel Index 3.7 (0-4) 02/01/17 Unknown Troponin T 0.020 ng/mL (0.00-0.029) 02/01/17 Unknown NT-Pro-B Natriuret Pep 9824 pg/mL (0-900) H 02/01/17 Unknown Total Protein 7.6 g/dL (6.3-8.2) 02/01/17 Unknown Albumin 4.2 g/dL (3.9-5) 02/01/17 Unknown Albumin/Globulin Ratio 1.2 % 02/01/17 Unknown
[2017-02-03 17:34] LABS: Creatine Kinase MB 3.3 ng/mL (0.0-4.0)
[2017-02-03] MEDS: LASIX PO SCH (18:11)
[2017-02-03] MEDS: LOPRESSOR PO SCH ×2 (18:11→21:50)
[2017-02-03 18:23] LABS: Calcium 9.2 mg/dL (8.4-10.2); Chloride 98.1 mmol/L (98-107); Potassium 4.2 mmol/L (3.6-5.0)
[2017-02-03] MEDS: PROVENTIL IH PRN (20:26)
[2017-02-03 21:30] LABS: ISTAT Base Excess -2; ISTAT HCO3 25.6; ISTAT PCO2 60.6 (35-45); ISTAT PH 7.234 (7.35-7.45); ISTAT PO2 67 (80-105); ISTAT SO2 88; ISTAT TCO2 27
[2017-02-03] MEDS ORDERED: VERSED ONE ×2 (22:02→22:11)
[2017-02-03] MEDS ORDERED: ZEMURON IV ONE (22:25)
[2017-02-03] MEDS ORDERED: AMIDATE IV ONE (22:25)
--- NOTE | 2017-02-03 22:37 | Event Note ---
Date: 02/03/17 Called by ICU staff for assistance with intubation of patient in resp distress. Patient had been extubated earlier today and was not tolerating extubation. On my arrival, the resp therapist was ventilating with bag/mask after multiple attempts at intubation. versed 3mg IV had been given so far for sedation. I ordered additional 1mg of versed be given and attempted direct laryngoscopy however patient was fighting too much and clenching jaw shut. BP was also noted to be in 170s/110s at that time. I then continued ambubag ventilation while Etomidate 20mg IV and Rocuronium 50mg IV was given to facilitate intubation. After adequate muscle relaxation was achieved I performed direct laryngoscopy with mac 4 blade and 7.0ETT was passed easily through cords. ETCO2 noted with indicator. Tube handed off to RT for securing. O2 saturation never dropped below 98% during my time in room.
[2017-02-04] MEDS ORDERED: VASELINE LIP THERAPY TP PRN (00:09)
[2017-02-04] MEDS ORDERED: VERSED IV ONE (00:27)
[2017-02-04 00:40] LABS: ISTAT Base Excess 3; ISTAT PCO2 45.9 (35-45); ISTAT PH 7.393 (7.35-7.45); ISTAT PO2 389 (80-105); ISTAT SO2 100; ISTAT TCO2 29
[2017-02-04] MEDS: APRESOLINE IV PRN (01:34)
[2017-02-04 05:17] LABS: ISTAT Base Excess 1; ISTAT HCO3 23.9; ISTAT PCO2 31.3 (35-45); ISTAT PO2 124 (80-105); ISTAT SO2 99; ISTAT TCO2 25
[2017-02-04 05:43] LABS: Basophils % (Auto) 0.7 % (0.0-1.8); Eosinophils % (Auto) 0.1 % (0.0-4.3); Mean Corpuscular HGB Conc 33 % (30-34); Mean Corpuscular Hemoglobin 29 pg (28-32); Mean Corpuscular Volume 86 fl (79-97); Platelet Count 120 K/mm3 (140-440); Red Cell Distribution Width 15.4 % (13.2-15.2); White Blood Count 10.4 K/mm3 (4.5-11.0)
[2017-02-04 06:11] LABS: Albumin 3.6 g/dL (3.9-5); Albumin/Globulin Ratio 1.1 %; Bilirubin,Total 0.5 mg/dL (0.1-1.2); Calcium 8.8 mg/dL (8.4-10.2); Chloride 99.7 mmol/L (98-107); Potassium 3.4 mmol/L (3.6-5.0)
[2017-02-04] MEDS: LASIX PO SCH (06:32)
[2017-02-04] MEDS: HEPARIN SUB-Q SCH ×3 (06:32→22:00)
[2017-02-04] MEDS: PEPCID IV SCH (10:08)
--- NOTE | 2017-02-04 10:25 | Consultation ---
History of Present Illness Consult date: 02/04/17 Requesting physician: ROD FELIZ Consult reason: congestive heart failure History of present illness: The pt is a 71 YO female who was admitted on 02/02/2017 for AMS and SOB. Pt is intubated and sedated on evaluation with no family at bedside and thus HPI is obtained per the chart. Pt reportedly does not have any past medical history and has not seen a doctor for many years. Pt recently moved here from [place] 4 months ago. Following admission, CXR showed apparent pulmonary edema, pt was intubated for acute respiratory failure. She was extubated 02/03 and was re- intubated after she failed extubation yesterday evening. Past History Past Medical History: other (couldn't obtained because of intubation and no family member) Past Surgical History: Other (couldn't obtained because of intubation and no family member) Social history: other (couldn't obtained because of intubation and no family member) Family history: other (couldn't obtained because of intubation and no family member) Medications and Allergies Allergies Allergy/AdvReac Type Severity Reaction Status Date / Time No Known Allergies Allergy Verified 02/01/17 23:49 Home Medications Medication Instructions Recorded Confirmed Last Taken Type No Known Home Medications [No 02/03/17 02/03/17 Unknown History Reported Home Medications] Active Meds: Active Medications Albuterol (Proventil) 2.5 mg IH Q6HRT PRN PRN Reason: Shortness Of Breath Last Admin: 02/03/17 20:26 Dose: 2.5 mg Famotidine (Pepcid) 20 mg IV DAILY [facility] Last Admin: 02/04/17 10:08 Dose: 20 mg Furosemide (Lasix) 20 mg IV 0600,1800 [facility] Heparin Sodium (Porcine) (Heparin) 5,000 unit SUB-Q Q8HR KATY Last Admin: 02/04/17 06:32 Dose: 5,000 unit Hydralazine HCl (Apresoline) 10 mg IV Q4HR PRN PRN Reason: SBP>160 Last Admin: 02/04/17 01:34 Dose: 10 mg Hydrophilic Ointment (Vaseline Lip Therapy) 1 applic TP Q2HR PRN PRN Reason: Dry Lips Propofol (Diprivan 10 Mg/Ml) 1,000 mg in 100 mls @ 1.83 mls/hr IV TITR KATY; 5 MCG/KG/MIN PRN Reason: Protocol Last Admin: 02/03/17 23:44 Dose: 5 mcg/kg/min, 1.83 mls/hr Metoprolol Tartrate (Lopressor) 25 mg PO BID KATY Last Admin: 02/03/17 21:50 Dose: 25 mg Multi-Ingred Cream/Lotion/Oil/Oint (Artificial Tears Ophth Oint) 1 applic OU Q4HR PRN PRN Reason: Dry Eye(s) Review of Systems ROS unobtainable: due to endotracheal tube, due to mental status Physical Examination Vital Signs Temp Pulse Resp BP Pulse Ox 98.1 F 126 H 18 243/154 76 L 02/01/17 23:20 02/01/17 23:20 02/01/17 23:20 02/01/17 23:20 02/01/17 23:20 General appearance: other (intubated, sedated) HEENT: Positive: PERRL, Normocephaly, Mucus Membranes Moist Neck: Positive: neck supple, trachea midline Cardiac: Positive: Reg Rate and Rhythm, S1/S2, Systolic Murmur Lungs: Positive: clear to auscultation, Ventilated Respirations Neuro: Positive: Other (intubated, sedated) Abdomen: Positive: Unremarkable, Soft, Active Bowel Sounds. Negative: Tender Skin: Positive: Clear. Negative: Rash Musculoskeletal: No Fluid Collection, No Pain, Normal Range of Motion Extremities: Absent: edema Results 02/04/17 05:32 02/04/17 05:32 Cardiac Enzymes 02/03/17 02/04/17 Range/Units 16:58 05:32 AST 317 H (5-40) units/L CK-MB (CK-2) 3.3 (0.0-4.0) ng/mL Lipids 02/03/17 Range/Units 16:58 Triglycerides 93 (2-149) mg/dL Cholesterol 246 H (50-199) mg/dL HDL Cholesterol 80 H (40-59) mg/dL Cholesterol/HDL Ratio 3.07 % CBC 02/04/17 Range/Units 05:32 WBC 10.4 (4.5-11.0) K/mm3 RBC 4.20 (3.65-5.03) M/mm3 Hgb 12.0 (10.1-14.3) gm/dl Hct 36.0 (30.3-42.9) % Plt Count 120 L (140-440) K/mm3 Lymph # 1.0 L (1.2-5.4) K/mm3 [place] # 0.9 H (0.0-0.8) K/mm3 Eos # 0.0 (0.0-0.4) K/mm3 Baso # 0.1 (0.0-0.1) K/mm3 Comprehensive Metabolic Panel 02/03/17 02/04/17 Range/Units 16:58 05:32 Sodium 141 143 (137-145) mmol/L Potassium 4.2 3.4 L (3.6-5.0) mmol/L Chloride 98.1 99.7 (98-107) mmol/L Carbon Dioxide 23 23 (22-30) mmol/L BUN 50 H 52 H (7-17) mg/dL Creatinine 1.9 H 1.9 H (0.7-1.2) mg/dL Glucose 116 H 87 (65-100) mg/dL Calcium 9.2 8.8 (8.4-10.2) mg/dL AST 317 H (5-40) units/L ALT 344 H (7-56) units/L Alkaline Phosphatase 79 (35-129) units/L Total Protein 7.0 (6.3-8.2) g/dL Albumin 3.6 L (3.9-5) g/dL - Imaging and Cardiology Echo: pending EKG: report reviewed, image reviewed EKG interpretations - Telemetry EKG Rhythm: Sinus Rhythm - EKG Sinus rhythms and dysrhythmias: sinus tachycardia AV and intraventricular conduction: intraventricular conducti Chamber hypertrophy or enlargement: left ventricular hypertro Repolarization changes or abnormalities: early repolarization due to LVH Assessment and Plan Assessment: Acute heart failure Acute respiratory failure - intubated STEPHANIE on ? CKD Lactic acidosis - trending down Minimally elevated troponin - CK MBs WNL; ECG with no acute ischemic changes; currently nonspecific in setting of renal insufficiency and acutely decompensated HF. HTN Low TSH - check free T4 in AM Elevated DDimer - V/Q scan with low probability for PE Plan: Cont present cardiac regimen. Monitor renal indices. Consider nephrology consultation per primary. Cont to trend Cb. Await echo. No ACEI/ARB at this time given renal insufficiency. The patient has been seen in conjunction with Dr. Luis Carpenter who agrees with the assessment and plan of care.
--- NOTE | 2017-02-04 11:12 | XRay Report ---
FINAL REPORT EXAM: XR CHEST 1V AP HISTORY: intubation TECHNIQUE: A portable semi-upright view of the chest was obtained and compared to the study of 02/02/2017. FINDINGS: The tip of the NG tube is 3 cm above the angel in good position. The NG tube has been removed since the previous study. The heart is mildly enlarged. The lungs remain congested. There is patchy airspace disease in the lower 2/3 of the right lung and in the left lung base. There are bilateral small effusions. There are EKG leads overlying the chest wall. The bones and soft tissues do not show any acute changes. IMPRESSION: Satisfactory position of the endotracheal tube. Cardiomegaly with stable pulmonary vascular congestion and effusions. Airspace disease in both lung bases noted. Interval removal of the NG tube since the previous study
[2017-02-04] MEDS: LOPRESSOR PO SCH ×3 (12:11→20:04)
[2017-02-04] MEDS: LASIX IV SCH (13:00)
--- NOTE | 2017-02-04 13:50 | Progress Note ---
Assessment and Plan Imp: 1. 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 Acute respiratory failure, hypoxia 3. Lactic acidosis 2/2 above 4. Chest pain, r/o ischemic heart disease 5. STEPHANIE Rec: 1. Rest on ventilator today pending improvement in pulmonary edema 2. Lopressor PO TID 3. Cardiology on board, f/u recs 4. D/c steroids and ABX 5. DVT and GI PPx 6. Diuresis with close monitoring of renal function 7. Complex patient/decision-making No family present today. Subjective Date of service: 02/04/17 Principal diagnosis: Acute respiratory failure Interval history: Extubated -> increased WOB -> re-intubated. No sedated on Propofol but easily arouses and responds appropriately (cannot answer questions due to language barrier). Active Medications Albuterol (Proventil) 2.5 mg IH Q6HRT PRN PRN Reason: Shortness Of Breath Last Admin: 02/03/17 20:26 Dose: 2.5 mg Famotidine (Pepcid) 20 mg IV DAILY [facility] Last Admin: 02/04/17 10:08 Dose: 20 mg Furosemide (Lasix) 20 mg IV 0600,1800 [facility] Heparin Sodium (Porcine) (Heparin) 5,000 unit SUB-Q Q8HR [facility] Last Admin: 02/04/17 06:32 Dose: 5,000 unit Hydralazine HCl (Apresoline) 10 mg IV Q4HR PRN PRN Reason: SBP>160 Last Admin: 02/04/17 01:34 Dose: 10 mg Hydrophilic Ointment (Vaseline Lip Therapy) 1 applic TP Q2HR PRN PRN Reason: Dry Lips Propofol (Diprivan 10 Mg/Ml) 1,000 mg in 100 mls @ 1.83 mls/hr IV TITR KATY; 5 MCG/KG/MIN PRN Reason: Protocol Last Admin: 02/03/17 23:44 Dose: 5 mcg/kg/min, 1.83 mls/hr Metoprolol Tartrate (Lopressor) 25 mg PO TID [facility] Multi-Ingred Cream/Lotion/Oil/Oint (Artificial Tears Ophth Oint) 1 applic OU Q4HR PRN PRN Reason: Dry Eye(s) Potassium Chloride (Potassium Chloride) 40 meq FEEDTUBE ONCE ONE Stop: 02/04/17 14:01 Objective Vital Signs - 12hr 02/04/17 02/04/17 02/04/17 01:51 02:00 02:11 Temperature Pulse Rate 95 H 92 H 101 H Respiratory 18 18 18 Rate Blood Pressure 148/90 142/80 142/80 O2 Sat by Pulse 97 97 98 Oximetry 02/04/17 02/04/17 02/04/17 02:21 02:31 02:38 Temperature Pulse Rate 96 H 107 H 97 H Respiratory 18 18 Rate Blood Pressure 142/88 142/88 142/88 O2 Sat by Pulse 98 98 100 Oximetry 02/04/17 02/04/17 02/04/17 02:41 02:51 03:00 Temperature Pulse Rate 92 H 89 90 Respiratory 18 18 18 Rate Blood Pressure 162/99 165/90 159/88 O2 Sat by Pulse 95 98 100 Oximetry 02/04/17 02/04/17 02/04/17 03:11 03:21 03:31 Temperature Pulse Rate 90 93 H 90 Respiratory 18 18 18 Rate Blood Pressure 159/88 161/88 144/69 O2 Sat by Pulse 97 98 99 Oximetry 02/04/17 02/04/17 02/04/17 03:41 03:51 03:57 Temperature 99.1 F Pulse Rate 94 H 94 H Respiratory 18 18 Rate Blood Pressure 144/69 161/65 O2 Sat by Pulse 98 100 Oximetry 02/04/17 02/04/17 02/04/17 04:01 04:11 04:21 Temperature Pulse Rate 94 H 90 95 H Respiratory 18 18 17 Rate Blood Pressure 168/68 168/68 158/78 O2 Sat by Pulse 100 99 100 Oximetry 02/04/17 02/04/17 02/04/17 04:31 04:40 04:41 Temperature Pulse Rate 93 H 93 H 93 H Respiratory 18 18 Rate Blood Pressure 164/66 164/66 164/66 O2 Sat by Pulse 100 99 97 Oximetry 02/04/17 02/04/17 02/04/17 04:51 05:01 05:11 Temperature Pulse Rate 95 H 95 H 87 Respiratory 18 18 18 Rate Blood Pressure 142/66 154/73 154/73 O2 Sat by Pulse 98 100 98 Oximetry 02/04/17 02/04/17 02/04/17 05:21 05:31 05:41 Temperature Pulse Rate 94 H 98 H 96 H Respiratory 17 18 18 Rate Blood Pressure 148/84 148/84 157/84 O2 Sat by Pulse 99 95 97 Oximetry 02/04/17 02/04/17 02/04/17 05:51 06:00 06:11 Temperature Pulse Rate 94 H 92 H 94 H Respiratory 18 18 18 Rate Blood Pressure 149/65 148/64 148/64 O2 Sat by Pulse 100 97 100 Oximetry 02/04/17 02/04/17 02/04/17 06:21 06:30 06:41 Temperature Pulse Rate 94 H 93 H 94 H Respiratory 19 19 18 Rate Blood Pressure 144/64 135/76 135/76 O2 Sat by Pulse 100 99 97 Oximetry 02/04/17 02/04/17 02/04/17 06:51 07:01 07:11 Temperature Pulse Rate 93 H 93 H 93 H Respiratory 19 19 18 Rate Blood Pressure 156/66 129/66 129/66 O2 Sat by Pulse 96 99 100 Oximetry 02/04/17 02/04/17 02/04/17 07:21 07:31 07:41 Temperature Pulse Rate 94 H 95 H 91 H Respiratory 19 18 18 Rate Blood Pressure 139/80 139/65 139/65 O2 Sat by Pulse 100 100 100 Oximetry 02/04/17 02/04/17 02/04/17 07:51 08:00 08:11 Temperature 99.2 F Pulse Rate 83 87 91 H Respiratory 18 18 18 Rate Blood Pressure 130/76 134/82 134/82 O2 Sat by Pulse 100 99 100 Oximetry 02/04/17 02/04/17 02/04/17 08:21 08:31 08:41 Temperature Pulse Rate 64 66 64 Respiratory 18 18 18 Rate Blood Pressure 143/64 147/69 147/69 O2 Sat by Pulse 99 100 100 Oximetry 02/04/17 02/04/17 02/04/17 08:51 09:00 09:02 Temperature Pulse Rate 93 H 97 H 94 H Respiratory 18 19 Rate Blood Pressure 139/80 127/85 157/85 O2 Sat by Pulse 100 98 100 Oximetry 02/04/17 02/04/17 02/04/17 09:11 09:21 09:31 Temperature Pulse Rate 107 H 87 88 Respiratory 18 18 18 Rate Blood Pressure 157/85 139/80 149/26 O2 Sat by Pulse 100 99 97 Oximetry 02/04/17 02/04/17 02/04/17 09:41 09:51 10:01 Temperature Pulse Rate 74 63 62 Respiratory 18 18 18 Rate Blood Pressure 149/26 131/72 142/77 O2 Sat by Pulse 100 100 100 Oximetry 02/04/17 02/04/17 02/04/17 10:11 10:21 10:31 Temperature Pulse Rate 64 62 92 H Respiratory 18 18 18 Rate Blood Pressure 142/77 138/77 148/52 O2 Sat by Pulse 100 98 100 Oximetry 02/04/17 02/04/17 02/04/17 10:41 10:51 11:01 Temperature Pulse Rate 92 H 80 90 Respiratory 20 19 18 Rate Blood Pressure 148/52 148/80 144/63 O2 Sat by Pulse 100 100 97 Oximetry 02/04/17 02/04/17 02/04/17 11:11 11:21 11:30 Temperature Pulse Rate 93 H 83 86 Respiratory 18 18 17 Rate Blood Pressure 144/63 145/77 144/86 O2 Sat by Pulse 100 100 100 Oximetry 02/04/17 02/04/17 02/04/17 11:41 11:51 12:00 Temperature 98.1 F Pulse Rate 83 80 90 Respiratory 18 18 18 Rate Blood Pressure 144/86 145/81 137/70 O2 Sat by Pulse 100 100 99 Oximetry 02/04/17 02/04/17 02/04/17 12:10 12:11 12:21 Temperature Pulse Rate 79 88 81 Respiratory 18 18 Rate Blood Pressure 137/70 137/70 153/85 O2 Sat by Pulse 100 99 100 Oximetry 02/04/17 02/04/17 02/04/17 12:31 12:41 12:48 Temperature 98.4 F Pulse Rate 88 83 Respiratory 18 18 Rate Blood Pressure 152/68 152/68 O2 Sat by Pulse 99 100 Oximetry 02/04/17 02/04/17 02/04/17 12:51 13:00 13:11 Temperature Pulse Rate 79 87 89 Respiratory 18 18 18 Rate Blood Pressure 137/83 142/83 142/83 O2 Sat by Pulse 100 100 100 Oximetry 02/04/17 13:21 Temperature Pulse Rate 88 Respiratory 18 Rate Blood Pressure 150/80 O2 Sat by Pulse 100 Oximetry Constitutional: other (intubated, critically ill on vent) Eyes: non-icteric ENT: oropharynx moist Neck: supple Effort: normal Ascultation: Bilateral: clear Percussion: Bilateral: not dull Cardiovascular: regular rate and rhythm (mildly tachy, normal rhythm; no mrg) Gastrointestinal: normoactive bowel sounds, soft, non-tender, non-distended Integumentary: normal Extremities: no cyanosis, no edema, pink and warm, edema Neurologic: normal mental status, non-focal exam, pupils equal and round, CN II- XII normal Psychiatric: mood appropriate, affect normal CBC and BMP: 02/04/17 05:32 02/04/17 05:32 ABG, PT/INR, D-dimer: ABG POC ABG pH 7.490 (7.35-7.45) H 02/04/17 04:35 POC ABG pCO2 31.3 (35-45) L 02/04/17 04:35 POC ABG pO2 124 (80-105) H 02/04/17 04:35 POC ABG HCO3 23.9 02/04/17 04:35 POC ABG Total CO2 25 02/04/17 04:35 POC ABG O2 Sat 99 02/04/17 04:35 PT/INR, D-dimer D-Dimer 1146.84 ng/mlDDU (0-234) H 02/01/17 Unknown Abnormal lab findings: Abnormal Labs 02/01/17 02/01/17 02/01/17 Unknown Unknown Unknown RDW Plt Count Lymph % (Auto) [place] % (Auto) Lymph # [place] # Seg Neutrophils % Seg Neutrophils # D-Dimer 1146.84 H POC ABG pH POC ABG pCO2 POC ABG pO2 Potassium Carbon Dioxide 20 L BUN 29 H Creatinine 1.5 H Glucose 244 H Lactic Acid 3.10 H* Magnesium AST 168 H ALT 148 H Troponin T NT-Pro-B Natriuret Pep 9824 H Albumin Cholesterol LDL Cholesterol Direct HDL Cholesterol TSH 02/02/17 02/02/17 02/03/17 00:46 05:54 16:58 RDW Plt Count Lymph % (Auto) [place] % (Auto) Lymph # [place] # Seg Neutrophils % Seg Neutrophils # D-Dimer POC ABG pH 7.305 L POC ABG pCO2 53.9 H POC ABG pO2 371 H 69 L Potassium Carbon Dioxide BUN Creatinine Glucose Lactic Acid Magnesium AST ALT Troponin T 0.074 H D NT-Pro-B Natriuret Pep Albumin Cholesterol 246 H LDL Cholesterol Direct 148 H HDL Cholesterol 80 H TSH 02/03/17 02/03/17 02/03/17 16:58 16:58 21:24 RDW Plt Count Lymph % (Auto) [place] % (Auto) Lymph # [place] # Seg Neutrophils % Seg Neutrophils # D-Dimer POC ABG pH 7.234 L POC ABG pCO2 60.6 H POC ABG pO2 67 L Potassium Carbon Dioxide BUN 50 H Creatinine 1.9 H Glucose 116 H Lactic Acid Magnesium AST ALT Troponin T NT-Pro-B Natriuret Pep Albumin Cholesterol LDL Cholesterol Direct HDL Cholesterol TSH 0.256 L 02/03/17 02/04/17 02/04/17 23:58 04:35 05:32 RDW 15.4 H Plt Count 120 L Lymph % (Auto) 9.2 L [place] % (Auto) 8.3 H Lymph # 1.0 L [place] # 0.9 H Seg Neutrophils % 81.7 H Seg Neutrophils # 8.5 H D-Dimer POC ABG pH 7.490 H POC ABG pCO2 45.9 H 31.3 L POC ABG pO2 389 H 124 H Potassium Carbon Dioxide BUN Creatinine Glucose Lactic Acid Magnesium AST ALT Troponin T NT-Pro-B Natriuret Pep Albumin Cholesterol LDL Cholesterol Direct HDL Cholesterol TSH 02/04/17 02/04/17 05:32 05:32 RDW Plt Count Lymph % (Auto) [place] % (Auto) Lymph # [place] # Seg Neutrophils % Seg Neutrophils # D-Dimer POC ABG pH POC ABG pCO2 POC ABG pO2 Potassium 3.4 L Carbon Dioxide BUN 52 H Creatinine 1.9 H Glucose Lactic Acid Magnesium 2.60 H AST 317 H ALT 344 H Troponin T NT-Pro-B Natriuret Pep Albumin 3.6 L Cholesterol LDL Cholesterol Direct HDL Cholesterol TSH Chest x-ray: report reviewed, image reviewed (worsening pulm edema again)
[2017-02-04] MEDS ORDERED: POTASSIUM CHLORIDE FEEDTUBE ONE ×2 (14:00→19:00)
--- NOTE | 2017-02-04 16:26 | Progress Note ---
Assessment and Plan Assessment and plan: Acute hypoxic respiratory failure, on MV <96hrs Acute combined systolic and systolic CHF Acute kidney injury, creatinine stable Lactic acidosis; resolving - Patient is intubated and on mechanical ventilation - Patient is on Solu-Medrol, DuoNeb's - IV lasix - Cardiology consult appreciated DVT prophylaxis -Heparin Disposition - monitor in the ICU. will get more history. No family member was in the room. The high probability of a clinically significant, sudden or life threatening deterioration of the [CV, respiratory] system(s) required my full and direct attention, intervention and personal management. The aggregate critical care time was [31] minutes. This time is in addition to time spent performing reported procedures but includes the following: [x] Data Review and interpretation [x] Patient assessment and monitoring of vital signs [x] Documentation [x] Medication orders and management History Interval history: Patient was seen and evaluated this morning, patient was reintubated overnight because of respiratory distress. Hospitalist Physical - Physical exam Narrative exam: Patient is intubated and on MV. The patient appeared well nourished and normally developed. Vital signs as documented. Head exam is unremarkable. No scleral icterus . Neck is without jugular venous distension, thyromegaly, or carotid bruits. Lungs clear to auscultation. Cardiac exam reveals regular rate and Rhythm. First and second heart sounds normal. No murmurs, rubs or gallops. Abdominal exam reveals normal bowel sounds, no masses, no organomegaly and no aortic enlargement. Extremities are nonedematous and both femoral and pedal pulses are normal. GUNNER MATE: Alert and able to answer yes/no questions by nodding her head. - Constitutional Vitals: Temp Pulse Resp BP Pulse Ox 98.4 F 88 18 150/80 100 02/04/17 12:48 02/04/17 13:21 02/04/17 13:21 02/04/17 13:21 02/04/17 13:21 General appearance: Present: other (intubated, sedated) Results - Labs CBC & Chem 7: 02/04/17 05:32 02/04/17 05:32 Labs: Laboratory Last Values WBC 10.4 K/mm3 (4.5-11.0) 02/04/17 05:32 RBC 4.20 M/mm3 (3.65-5.03) 02/04/17 05:32 Hgb 12.0 gm/dl (10.1-14.3) 02/04/17 05:32 Hct 36.0 % (30.3-42.9) 02/04/17 05:32 MCV 86 fl (79-97) 02/04/17 05:32 MCH 29 pg (28-32) 02/04/17 05:32 MCHC 33 % (30-34) 02/04/17 05:32 RDW 15.4 % (13.2-15.2) H 02/04/17 05:32 Plt Count 120 K/mm3 (140-440) L 02/04/17 05:32 Lymph % (Auto) 9.2 % (13.4-35.0) L 02/04/17 05:32 [place] % (Auto) 8.3 % (0.0-7.3) H 02/04/17 05:32 Eos % (Auto) 0.1 % (0.0-4.3) 02/04/17 05:32 Baso % (Auto) 0.7 % (0.0-1.8) 02/04/17 05:32 Lymph # 1.0 K/mm3 (1.2-5.4) L 02/04/17 05:32 [place] # 0.9 K/mm3 (0.0-0.8) H 02/04/17 05:32 Eos # 0.0 K/mm3 (0.0-0.4) 02/04/17 05:32 Baso # 0.1 K/mm3 (0.0-0.1) 02/04/17 05:32 Seg Neutrophils % 81.7 % (40.0-70.0) H 02/04/17 05:32 Seg Neutrophils # 8.5 K/mm3 (1.8-7.7) H 02/04/17 05:32 D-Dimer 1146.84 ng/mlDDU (0-234) H 02/01/17 Unknown POC ABG pH 7.490 (7.35-7.45) H 02/04/17 04:35 POC ABG pCO2 31.3 (35-45) L 02/04/17 04:35 POC ABG pO2 124 (80-105) H 02/04/17 04:35 POC ABG HCO3 23.9 02/04/17 04:35 POC ABG Total CO2 25 02/04/17 04:35 POC ABG O2 Sat 99 02/04/17 04:35 POC ABG Base Excess 1 02/04/17 04:35 FiO2 50 % 02/04/17 04:35 Sodium 143 mmol/L (137-145) 02/04/17 05:32 Potassium 3.4 mmol/L (3.6-5.0) L 02/04/17 05:32 Chloride 99.7 mmol/L (98-107) 02/04/17 05:32 Carbon Dioxide 23 mmol/L (22-30) 02/04/17 05:32 Anion Gap 24 mmol/L 02/04/17 05:32 BUN 52 mg/dL (7-17) H 02/04/17 05:32 Creatinine 1.9 mg/dL (0.7-1.2) H 02/04/17 05:32 Estimated GFR 32 ml/min 02/04/17 05:32 BUN/Creatinine Ratio 27 % 02/04/17 05:32 Glucose 87 mg/dL (65-100) 02/04/17 05:32 Lactic Acid 1.50 mmol/L (0.7-2.0) 02/03/17 16:58 Calcium 8.8 mg/dL (8.4-10.2) 02/04/17 05:32 Magnesium 2.60 mg/dL (1.7-2.3) H 02/04/17 05:32 Total Bilirubin 0.50 mg/dL (0.1-1.2) 02/04/17 05:32 AST 317 units/L (5-40) H 02/04/17 05:32 ALT 344 units/L (7-56) H 02/04/17 05:32 Alkaline Phosphatase 79 units/L (35-129) 02/04/17 05:32 Total Creatine Kinase 121 units/L (30-135) 02/03/17 16:58 CK-MB (CK-2) 3.3 ng/mL (0.0-4.0) 02/03/17 16:58 CK-MB (CK-2) Rel Index 2.7 (0-4) 02/03/17 16:58 Troponin T 0.074 ng/mL (0.00-0.029) H D 02/03/17 16:58 NT-Pro-B Natriuret Pep 9824 pg/mL (0-900) H 02/01/17 Unknown Total Protein 7.0 g/dL (6.3-8.2) 02/04/17 05:32 Albumin 3.6 g/dL (3.9-5) L 02/04/17 05:32 Albumin/Globulin Ratio 1.1 % 02/04/17 05:32 Triglycerides 93 mg/dL (2-149) 02/03/17 16:58 Cholesterol 246 mg/dL (50-199) H 02/03/17 16:58 LDL Cholesterol Direct 148 mg/dL (50-130) H 02/03/17 16:58 HDL Cholesterol 80 mg/dL (40-59) H 02/03/17 16:58 Cholesterol/HDL Ratio 3.07 % 02/03/17 16:58 TSH 0.256 mlU/mL (0.270-4.200) L 02/03/17 16:58
[2017-02-04] MEDS: DIPRIVAN 10 MG/ML 1,000 MG/100 ML BOTTLE IV SCH (17:57)
--- NOTE | 2017-02-04 21:19 | XRay Report ---
FINAL REPORT EXAM: XR ABDOMEN 1V AP HISTORY: dobb estela placement TECHNIQUE: Low center chest was performed Comparison: None FINDINGS: Patient is intubated with endotracheal tube tip well above angel. There has been placement of a weighted tip feeding tube with the tip in the region of the gastric body. No coiling is identified. Recommend slowly advancing the tube approximately 10 centimeters with the patient in the right lateral decubitus position and reimaging. There is stable cardiomegaly. There is dense infiltrate or consolidation in the right lung base. There is a layering left effusion and left basal consolidation. Since the exam on the 02/02, the right-sided infiltrate has become more focal. IMPRESSION: Weighted tip feeding tube present. Tip in the region of the gastric body. Recommend slowly advancing the tube approximately 10 centimeters with the patient in the right lateral decubitus positioning and reimaging. Dense right basal infiltrate or consolidation. Left basal consolidation and layering effusion as previously. Patient remains intubated with endotracheal tube tip well above the angel. Stable cardiomegaly.
--- NOTE | 2017-02-05 03:31 | XRay Report ---
FINAL REPORT EXAM: XR ABDOMEN 1V AP HISTORY: ngt placement TECHNIQUE: An AP view of the abdomen was obtained. FINDINGS: The tip of the Dobhoff catheter is in the body of the stomach. The bowel gas pattern is unremarkable. Free air is not seen. The lung bases reveal a left-sided pleural effusion. IMPRESSION: The tip of the Dobhoff tube is in the body of the stomach.
[2017-02-05 04:53] LABS: ISTAT Base Excess 0; ISTAT HCO3 23.2; ISTAT PH 7.482 (7.35-7.45); ISTAT PO2 132 (80-105); ISTAT SO2 99; ISTAT TCO2 24
[2017-02-05 05:05] LABS: Calcium 8.9 mg/dL (8.4-10.2)
[2017-02-05] MEDS: LASIX IV SCH (05:59)
[2017-02-05] MEDS: HEPARIN SUB-Q SCH ×3 (06:00→21:38)
[2017-02-05] MEDS: PEPCID IV SCH (09:48)
[2017-02-05] MEDS: POTASSIUM CHLORIDE FEEDTUBE SCH ×2 (09:48→15:02)
[2017-02-05] MEDS: LOPRESSOR PO SCH ×3 (09:49→22:00)
--- NOTE | 2017-02-05 10:22 | XRay Report ---
PORTABLE CHEST INDICATION: Follow up respiratory failure. COMPARISON: 02/03/2017 FINDINGS: Portable, frontal chest radiograph again demonstrates congestive haziness/opacities in mid to lower lungs, right more than left and increased on the right with greater obscuration of the right hemidiaphragm. Bilateral pleural fluid as also slight fluid or thickening along the right minor fissure. Stable endotracheal tube tip approximately 4.5 cm above the angel. New Dobbhoff tube with stylet now noted extending beyond the GE junction and the inferior radiographic margin. EKG leads. Intact bones. CONCLUSION: 1. Overall interval radiographic worsening of pulmonary vascular congestion/CHF, as described. 2. New esophagogastric tube and stable endotracheal tube. Thank you for the opportunity to participate in this patient's care.
--- NOTE | 2017-02-05 10:29 | Progress Note ---
Assessment and Plan Assessment and plan: 71-year-old -[place] female brought in via EMS for shortness of breath, altered mental status. I couldn't get any history or review of systems because the patient is intubated. I couldn't get in touch with the family, I called her son at [phone] but he didn't pickup his phone. Per ED report patient presented with shortness of breath, didn't have any past medical history, didn' t see a doctor for many years, she came from [place] 4 months ago. Acute hypoxic respiratory failure, on MV >96hrs Continue mechanical ventilator, attempt to wean daily Acute combined systolic and systolic CHF Continue diuresis, case dw cardiology Acute kidney injury, vasomotor nephropathy Improving with diuresis Hypernatremia/free water deficits Increase free water by NG tube, this was discussed with the nurse The high probability of a clinically significant, sudden or life threatening deterioration of the [CV, respiratory] system(s) required my full and direct attention, intervention and personal management. The aggregate critical care time was [31] minutes. This time is in addition to time spent performing reported procedures but includes the following: [x] Data Review and interpretation [x] Patient assessment and monitoring of vital signs [x] Documentation [x] Medication orders and management History Interval history: Patient has been diuresing well, she continues to improve. She was short of breath and so she was intubated, she has been tolerating the ventilator well Review of systems Constitutional: No fevers, no malaise, no joint pains CVS: Orthopnea, GI: No abdominal pain, no diarrhea, no vomiting, no constipation Respiratory: Has not been short of breath since she has been on the ventilator, no wheezing, no coughing Hospitalist Physical - Physical exam Narrative exam: General.: Appears well, no distress, nontoxic HEENT: Moist mucous membranes, extraocular muscles intact, no lymphadenopathy Neck: supple Cardiac: S1-S2 heard Lungs: Bibasilar crackles Abdomen: soft , nontender, nondistended, bowel sounds positive Extremities: no edema clubbing or cyanosis Skin: no rash or lesions Neurologic: no gross focal deficits Intubated, but obeys commands, calm - Constitutional Vitals: Temp Pulse Resp BP Pulse Ox 98.9 F 80 18 126/71 100 02/05/17 08:00 02/05/17 08:31 02/05/17 09:00 02/05/17 09:00 02/05/17 09:00 General appearance: Present: other (intubated, sedated) Results - Labs CBC & Chem 7: 02/08/17 05:07 02/09/17 07:20 Labs: Laboratory Last Values WBC 10.4 K/mm3 (4.5-11.0) 02/04/17 05:32 RBC 4.20 M/mm3 (3.65-5.03) 02/04/17 05:32 Hgb 12.0 gm/dl (10.1-14.3) 02/04/17 05:32 Hct 36.0 % (30.3-42.9) 02/04/17 05:32 MCV 86 fl (79-97) 02/04/17 05:32 MCH 29 pg (28-32) 02/04/17 05:32 MCHC 33 % (30-34) 02/04/17 05:32 RDW 15.4 % (13.2-15.2) H 02/04/17 05:32 Plt Count 120 K/mm3 (140-440) L 02/04/17 05:32 Lymph % (Auto) 9.2 % (13.4-35.0) L 02/04/17 05:32 [place] % (Auto) 8.3 % (0.0-7.3) H 02/04/17 05:32 Eos % (Auto) 0.1 % (0.0-4.3) 02/04/17 05:32 Baso % (Auto) 0.7 % (0.0-1.8) 02/04/17 05:32 Lymph # 1.0 K/mm3 (1.2-5.4) L 02/04/17 05:32 [place] # 0.9 K/mm3 (0.0-0.8) H 02/04/17 05:32 Eos # 0.0 K/mm3 (0.0-0.4) 02/04/17 05:32 Baso # 0.1 K/mm3 (0.0-0.1) 02/04/17 05:32 Seg Neutrophils % 81.7 % (40.0-70.0) H 02/04/17 05:32 Seg Neutrophils # 8.5 K/mm3 (1.8-7.7) H 02/04/17 05:32 D-Dimer 1146.84 ng/mlDDU (0-234) H 02/01/17 Unknown POC ABG pH 7.482 (7.35-7.45) H 02/05/17 04:39 POC ABG pCO2 31.0 (35-45) L 02/05/17 04:39 POC ABG pO2 132 (80-105) H 02/05/17 04:39 POC ABG HCO3 23.2 02/05/17 04:39 POC ABG Total CO2 24 02/05/17 04:39 POC ABG O2 Sat 99 02/05/17 04:39 POC ABG Base Excess 0 02/05/17 04:39 FiO2 40 % 02/05/17 04:39 Sodium 148 mmol/L (137-145) H 02/05/17 04:13 Potassium 3.0 mmol/L (3.6-5.0) L 02/05/17 04:13 Chloride 104.0 mmol/L (98-107) 02/05/17 04:13 Carbon Dioxide 21 mmol/L (22-30) L 02/05/17 04:13 Anion Gap 26 mmol/L 02/05/17 04:13 BUN 52 mg/dL (7-17) H 02/05/17 04:13 Creatinine 1.8 mg/dL (0.7-1.2) H 02/05/17 04:13 Estimated GFR 34 ml/min 02/05/17 04:13 BUN/Creatinine Ratio 29 % 02/05/17 04:13 Glucose 80 mg/dL (65-100) 02/05/17 04:13 Lactic Acid 1.50 mmol/L (0.7-2.0) 02/03/17 16:58 Calcium 8.9 mg/dL (8.4-10.2) 02/05/17 04:13 Magnesium 2.60 mg/dL (1.7-2.3) H 02/04/17 05:32 Total Bilirubin 0.50 mg/dL (0.1-1.2) 02/04/17 05:32 AST 317 units/L (5-40) H 02/04/17 05:32 ALT 344 units/L (7-56) H 02/04/17 05:32 Alkaline Phosphatase 79 units/L (35-129) 02/04/17 05:32 Total Creatine Kinase 76 units/L (30-135) 02/05/17 04:13 CK-MB (CK-2) 2.0 ng/mL (0.0-4.0) 02/05/17 04:13 CK-MB (CK-2) Rel Index 2.6 (0-4) 02/05/17 04:13 Troponin T 0.160 ng/mL (0.00-0.029) H* D 02/05/17 04:13 NT-Pro-B Natriuret Pep 9824 pg/mL (0-900) H 02/01/17 Unknown Total Protein 7.0 g/dL (6.3-8.2) 02/04/17 05:32 Albumin 3.6 g/dL (3.9-5) L 02/04/17 05:32 Albumin/Globulin Ratio 1.1 % 02/04/17 05:32 Triglycerides 93 mg/dL (2-149) 02/03/17 16:58 Cholesterol 246 mg/dL (50-199) H 02/03/17 16:58 LDL Cholesterol Direct 148 mg/dL (50-130) H 02/03/17 16:58 HDL Cholesterol 80 mg/dL (40-59) H 02/03/17 16:58 Cholesterol/HDL Ratio 3.07 % 02/03/17 16:58 TSH 0.256 mlU/mL (0.270-4.200) L 02/03/17 16:58 Free T4 1.40 ng/dL (0.76-1.46) 02/05/17 04:13
--- NOTE | 2017-02-05 11:25 | Progress Note ---
Assessment and Plan Assessment: Acute combined systolic and diastolic heart failure Cardiomyopathy - EF 20-25% Acute respiratory failure - intubated STEPHANIE on ? CKD Lactic acidosis - trending down Elevated troponin - CK MBs WNL; ECG with no acute ischemic changes; currently nonspecific in setting of renal insufficiency and acutely decompensated HF. HTN Low TSH - free T4 WNL Elevated DDimer - V/Q scan with low probability for PE Mild to moderate MR Mild pulmonary HTN Plan: Echo reviewed - mild LVH, EF 20-25%, impaired relaxation, mild AR, mild to mod MR, mild pulm HTN, moderate pleural effusion. Cont present cardiac regimen, including IV lasix and lopressor. Would prefer to increase diuretics but hesitant to do so at this time given renal insufficiency. Monitor renal indices. Consider nephrology consultation per primary. No ACEI/ ARB at this time given renal insufficiency. Cont to trend Cb. Plan for ischemic evaluation to r/o ischemic CMP once medically stable. The patient has been seen in conjunction with Dr. Luis Carpenter who agrees with the assessment and plan of care. Subjective Date of service: 02/05/17 Principal diagnosis: Acute respiratory failure Interval history: Pt remains intubated, alert, for possible extubation today per primary RN. Objective Last Vital Signs Temp 98.9 F 02/05/17 08:00 Pulse 80 02/05/17 08:31 Resp 18 02/05/17 09:00 BP 126/71 02/05/17 09:00 Pulse Ox 100 02/05/17 09:00 - Physical Examination General: Other (intubated) HEENT: Positive: PERRL, Normocephaly, Mucus Membranes Moist Neck: Positive: neck supple, trachea midline Cardiac: Positive: Reg Rate and Rhythm, S1/S2 Lungs: Positive: Decreased Breath Sounds, Ventilated Respirations Neuro: Positive: Other (intubated, alert) Abdomen: Positive: Unremarkable, Soft, Active Bowel Sounds. Negative: Tender Skin: Positive: Clear. Negative: Rash Musculoskeletal: No Fluid Collection, No Pain, Normal Range of Motion Extremities: Absent: edema - Labs and Meds Cardiac Enzymes 02/05/17 Range/Units 04:13 CK-MB (CK-2) 2.0 (0.0-4.0) ng/mL Comprehensive Metabolic Panel 02/05/17 Range/Units 04:13 Sodium 148 H (137-145) mmol/L Potassium 3.0 L (3.6-5.0) mmol/L Chloride 104.0 (98-107) mmol/L Carbon Dioxide 21 L (22-30) mmol/L BUN 52 H (7-17) mg/dL Creatinine 1.8 H (0.7-1.2) mg/dL Glucose 80 (65-100) mg/dL Calcium 8.9 (8.4-10.2) mg/dL - Imaging and Cardiology EKG: report reviewed, image reviewed Echo: pending - EKG Sinus rhythms and dysrhythmias: sinus tachycardia AV and intraventricular conduction: intraventricular conducti Chamber hypertrophy or enlargement: left ventricular hypertro Repolarization changes or abnormalities: early repolarization due to LVH
[2017-02-05 13:57] LABS: ISTAT Base Excess TNR
[2017-02-05 13:58] LABS: ISTAT HCO3 TNR; ISTAT PCO2 TNR (35-45); ISTAT PH TNR (7.35-7.45)
[2017-02-05 13:59] LABS: ISTAT DEVICE TNR; ISTAT PO2 TNR (80-105); ISTAT SITE TNR; ISTAT SO2 TNR; ISTAT TCO2 TNR
--- NOTE | 2017-02-05 13:59 | Progress Note ---
Assessment and Plan Imp: 1. 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 Acute respiratory failure, hypoxia 3. Lactic acidosis 2/2 above 4. Chest pain, r/o ischemic heart disease 5. STEPHANIE Rec: 1. Rest on ventilator today pending improvement in CXR as she already failed extubation once; needs more diuresis; will re-assess in AM 2. Lopressor PO TID 3. Cardiology on board, f/u recs 4. D/c steroids and ABX; f/u CXR 5. DVT and GI PPx 6. Diuresis with close monitoring of renal function 7. Start TFs + free water 8. Complex patient/decision-making No family present today. Subjective Date of service: 02/05/17 Principal diagnosis: Acute respiratory failure Interval history: Intubated. On Propofol but easily arouses and responds appropriately (cannot answer questions due to language barrier). Active Medications Albuterol (Proventil) 2.5 mg IH Q6HRT PRN PRN Reason: Shortness Of Breath Last Admin: 02/03/17 20:26 Dose: 2.5 mg Famotidine (Pepcid) 20 mg IV DAILY [facility] Last Admin: 02/05/17 09:48 Dose: 20 mg Furosemide (Lasix) 20 mg IV 0600,1800 [facility] Last Admin: 02/05/17 05:59 Dose: 20 mg Heparin Sodium (Porcine) (Heparin) 5,000 unit SUB-Q Q8HR [facility] Last Admin: 02/05/17 06:00 Dose: 5,000 unit Hydralazine HCl (Apresoline) 10 mg IV Q4HR PRN PRN Reason: SBP>160 Last Admin: 02/04/17 01:34 Dose: 10 mg Hydrophilic Ointment (Vaseline Lip Therapy) 1 applic TP Q2HR PRN PRN Reason: Dry Lips Propofol (Diprivan 10 Mg/Ml) 1,000 mg in 100 mls @ 1.83 mls/hr IV TITR KATY; 5 MCG/KG/MIN PRN Reason: Protocol Last Admin: 02/04/17 17:57 Dose: 5 mcg/kg/min, 1.83 mls/hr Metoprolol Tartrate (Lopressor) 25 mg PO TID [facility] Last Admin: 02/05/17 09:49 Dose: 25 mg Multi-Ingred Cream/Lotion/Oil/Oint (Artificial Tears Ophth Oint) 1 applic OU Q4HR PRN PRN Reason: Dry Eye(s) Objective Vital Signs - 12hr 02/05/17 02/05/17 02/05/17 02:00 02:11 02:21 Temperature Pulse Rate 70 111 H 78 Respiratory 18 18 18 Rate Blood Pressure 135/83 135/83 134/79 O2 Sat by Pulse 97 99 99 Oximetry 02/05/17 02/05/17 02/05/17 02:30 02:41 02:51 Temperature Pulse Rate 76 77 84 Respiratory 18 19 18 Rate Blood Pressure 141/79 141/79 153/84 O2 Sat by Pulse 97 98 99 Oximetry 02/05/17 02/05/17 02/05/17 03:00 03:11 03:21 Temperature Pulse Rate 82 87 81 Respiratory 18 18 19 Rate Blood Pressure 132/65 132/65 141/64 O2 Sat by Pulse 96 100 100 Oximetry 02/05/17 02/05/17 02/05/17 03:30 03:41 03:51 Temperature Pulse Rate 81 80 100 H Respiratory 18 21 17 Rate Blood Pressure 155/84 155/84 151/81 O2 Sat by Pulse 98 100 99 Oximetry 02/05/17 02/05/17 02/05/17 04:00 04:11 04:21 Temperature 98.8 F Pulse Rate 81 83 80 Respiratory 13 15 17 Rate Blood Pressure 166/99 151/81 151/94 O2 Sat by Pulse 99 100 100 Oximetry 02/05/17 02/05/17 02/05/17 04:30 04:39 04:41 Temperature 98.8 F Pulse Rate 83 78 Respiratory 19 18 Rate Blood Pressure 155/90 155/90 O2 Sat by Pulse 99 99 Oximetry 02/05/17 02/05/17 02/05/17 04:51 05:00 05:01 Temperature Pulse Rate 74 81 78 Respiratory 19 18 Rate Blood Pressure 145/80 151/94 149/85 O2 Sat by Pulse 99 100 99 Oximetry 02/05/17 02/05/17 02/05/17 05:11 05:21 05:30 Temperature Pulse Rate 78 81 77 Respiratory 18 18 18 Rate Blood Pressure 149/85 140/91 138/88 O2 Sat by Pulse 99 99 99 Oximetry 02/05/17 02/05/17 02/05/17 05:41 05:51 06:00 Temperature Pulse Rate 75 70 83 Respiratory 18 18 17 Rate Blood Pressure 138/88 133/82 138/88 O2 Sat by Pulse 99 99 94 Oximetry 02/05/17 02/05/17 02/05/17 06:11 06:21 06:30 Temperature Pulse Rate 78 76 73 Respiratory 18 18 18 Rate Blood Pressure 138/88 134/90 139/83 O2 Sat by Pulse 99 99 98 Oximetry 02/05/17 02/05/17 02/05/17 06:41 06:51 07:00 Temperature Pulse Rate 71 71 72 Respiratory 18 18 18 Rate Blood Pressure 139/83 138/84 132/84 O2 Sat by Pulse 99 99 97 Oximetry 02/05/17 02/05/17 02/05/17 07:11 07:21 07:30 Temperature Pulse Rate 82 73 74 Respiratory 16 18 18 Rate Blood Pressure 138/84 130/77 121/77 O2 Sat by Pulse 99 99 97 Oximetry 02/05/17 02/05/17 02/05/17 07:41 07:51 08:00 Temperature 98.9 F Pulse Rate 73 72 71 Respiratory 18 18 18 Rate Blood Pressure 132/84 126/76 141/81 O2 Sat by Pulse 99 98 98 Oximetry 02/05/17 02/05/17 02/05/17 08:11 08:21 08:30 Temperature Pulse Rate 71 83 85 Respiratory 18 18 18 Rate Blood Pressure 141/81 125/77 131/78 O2 Sat by Pulse 99 100 99 Oximetry 02/05/17 02/05/17 02/05/17 08:31 08:41 08:51 Temperature Pulse Rate 80 72 70 Respiratory 18 18 Rate Blood Pressure 131/78 131/78 122/75 O2 Sat by Pulse 100 98 99 Oximetry 02/05/17 02/05/17 02/05/17 09:00 09:11 09:21 Temperature Pulse Rate 75 82 73 Respiratory 18 18 18 Rate Blood Pressure 122/83 122/75 129/71 O2 Sat by Pulse 97 99 99 Oximetry 02/05/17 02/05/17 02/05/17 09:30 09:41 09:51 Temperature Pulse Rate 78 90 79 Respiratory 18 18 18 Rate Blood Pressure 122/77 122/77 O2 Sat by Pulse 96 100 100 Oximetry 02/05/17 02/05/17 02/05/17 10:01 10:11 10:21 Temperature Pulse Rate 77 73 80 Respiratory 18 18 18 Rate Blood Pressure 127/69 126/71 136/69 O2 Sat by Pulse 96 99 99 Oximetry 02/05/17 02/05/17 02/05/17 10:30 10:41 10:51 Temperature Pulse Rate 80 75 87 Respiratory 18 18 18 Rate Blood Pressure 128/73 128/73 122/73 O2 Sat by Pulse 98 98 99 Oximetry 02/05/17 02/05/17 02/05/17 11:00 11:11 11:21 Temperature Pulse Rate 78 74 80 Respiratory 18 18 18 Rate Blood Pressure 127/79 122/73 142/103 O2 Sat by Pulse 96 100 99 Oximetry 02/05/17 02/05/17 02/05/17 11:30 11:41 11:51 Temperature Pulse Rate 79 80 79 Respiratory 18 18 18 Rate Blood Pressure 140/79 140/79 147/83 O2 Sat by Pulse 96 98 98 Oximetry 02/05/17 02/05/17 02/05/17 11:57 12:00 12:11 Temperature 98.4 F Pulse Rate 80 79 77 Respiratory 18 18 Rate Blood Pressure 147/83 136/78 136/78 O2 Sat by Pulse 99 96 98 Oximetry 02/05/17 02/05/17 12:21 12:30 Temperature Pulse Rate 81 76 Respiratory 19 18 Rate Blood Pressure 135/78 130/74 O2 Sat by Pulse 98 97 Oximetry Constitutional: other (intubated, critically ill on vent) Eyes: non-icteric ENT: oropharynx moist Neck: supple Effort: normal Ascultation: Bilateral: other (coarse BS bilaterally) Cardiovascular: regular rate and rhythm (mildly tachy, normal rhythm; no mrg) Gastrointestinal: normoactive bowel sounds, soft, non-tender, non-distended Integumentary: normal Extremities: no cyanosis, no edema, pink and warm, edema Neurologic: normal mental status, non-focal exam, pupils equal and round, CN II- XII normal Psychiatric: mood appropriate, affect normal CBC and BMP: 02/04/17 05:32 02/05/17 04:13 ABG, PT/INR, D-dimer: ABG POC ABG pH 7.482 (7.35-7.45) H 02/05/17 04:39 POC ABG pCO2 31.0 (35-45) L 02/05/17 04:39 POC ABG pO2 132 (80-105) H 02/05/17 04:39 POC ABG HCO3 23.2 02/05/17 04:39 POC ABG Total CO2 24 02/05/17 04:39 POC ABG O2 Sat 99 02/05/17 04:39 PT/INR, D-dimer D-Dimer 1146.84 ng/mlDDU (0-234) H 02/01/17 Unknown Abnormal lab findings: Abnormal Labs 02/01/17 02/01/17 02/01/17 Unknown Unknown Unknown RDW Plt Count Lymph % (Auto) [place] % (Auto) Lymph # [place] # Seg Neutrophils % Seg Neutrophils # D-Dimer 1146.84 H POC ABG pH POC ABG pCO2 POC ABG pO2 Sodium Potassium Carbon Dioxide 20 L BUN 29 H Creatinine 1.5 H Glucose 244 H Lactic Acid 3.10 H* Magnesium AST 168 H ALT 148 H Troponin T NT-Pro-B Natriuret Pep 9824 H Albumin Cholesterol LDL Cholesterol Direct HDL Cholesterol TSH 02/02/17 02/02/17 02/03/17 00:46 05:54 16:58 RDW Plt Count Lymph % (Auto) [place] % (Auto) Lymph # [place] # Seg Neutrophils % Seg Neutrophils # D-Dimer POC ABG pH 7.305 L POC ABG pCO2 53.9 H POC ABG pO2 371 H 69 L Sodium Potassium Carbon Dioxide BUN Creatinine Glucose Lactic Acid Magnesium AST ALT Troponin T 0.074 H D NT-Pro-B Natriuret Pep Albumin Cholesterol 246 H LDL Cholesterol Direct 148 H HDL Cholesterol 80 H TSH 02/03/17 02/03/17 02/03/17 16:58 16:58 21:24 RDW Plt Count Lymph % (Auto) [place] % (Auto) Lymph # [place] # Seg Neutrophils % Seg Neutrophils # D-Dimer POC ABG pH 7.234 L POC ABG pCO2 60.6 H POC ABG pO2 67 L Sodium Potassium Carbon Dioxide BUN 50 H Creatinine 1.9 H Glucose 116 H Lactic Acid Magnesium AST ALT Troponin T NT-Pro-B Natriuret Pep Albumin Cholesterol LDL Cholesterol Direct HDL Cholesterol TSH 0.256 L 02/03/17 02/04/17 02/04/17 23:58 04:35 05:32 RDW 15.4 H Plt Count 120 L Lymph % (Auto) 9.2 L [place] % (Auto) 8.3 H Lymph # 1.0 L [place] # 0.9 H Seg Neutrophils % 81.7 H Seg Neutrophils # 8.5 H D-Dimer POC ABG pH 7.490 H POC ABG pCO2 45.9 H 31.3 L POC ABG pO2 389 H 124 H Sodium Potassium Carbon Dioxide BUN Creatinine Glucose Lactic Acid Magnesium AST ALT Troponin T NT-Pro-B Natriuret Pep Albumin Cholesterol LDL Cholesterol Direct HDL Cholesterol TSH 02/04/17 02/04/17 02/05/17 05:32 05:32 04:13 RDW Plt Count Lymph % (Auto) [place] % (Auto) Lymph # [place] # Seg Neutrophils % Seg Neutrophils # D-Dimer POC ABG pH POC ABG pCO2 POC ABG pO2 Sodium 148 H Potassium 3.4 L 3.0 L Carbon Dioxide 21 L BUN 52 H 52 H Creatinine 1.9 H 1.8 H Glucose Lactic Acid Magnesium 2.60 H AST 317 H ALT 344 H Troponin T 0.160 H* D NT-Pro-B Natriuret Pep Albumin 3.6 L Cholesterol LDL Cholesterol Direct HDL Cholesterol TSH 02/05/17 02/05/17 02/05/17 04:13 04:32 04:39 RDW Plt Count Lymph % (Auto) [place] % (Auto) Lymph # [place] # Seg Neutrophils % Seg Neutrophils # D-Dimer POC ABG pH 7.499 H 7.482 H POC ABG pCO2 29.1 L 31.0 L POC ABG pO2 47 L 132 H Sodium Potassium Carbon Dioxide BUN Creatinine Glucose Lactic Acid Magnesium 2.70 H AST ALT Troponin T NT-Pro-B Natriuret Pep Albumin Cholesterol LDL Cholesterol Direct HDL Cholesterol TSH Chest x-ray: report reviewed, image reviewed (improved pulm edema, decreased CM , persistent R sided infiltrate likely asymmetric edema or effusion)
[2017-02-05 15:32] LABS: Creatine Kinase MB 1.5 ng/mL (0.0-4.0)
--- NOTE | 2017-02-06 02:18 | XRay Report ---
FINAL REPORT EXAM: XR CHEST 1V AP HISTORY: follow up respiratory failure TECHNIQUE: A portable semi-erect view of the chest was obtained and compared the study of 02/03/2017. FINDINGS: The tip of the endotracheal tube is in good position above the angel. The tip of the Dobhoff catheter is in the mid body of the stomach. The lungs appear mildly congested. There is stable airspace disease superimposed over both lower lobes. Effusions cannot be excluded. The heart size is normal. There are EKG leads overlying the chest wall. The bones and soft tissues otherwise are unchanged. IMPRESSION: Stable mild congestion and airspace disease in both lung bases.
[2017-02-06 05:52] LABS: Eosinophils % (Auto) 2.1 % (0.0-4.3); Hematocrit 33.2 % (30.3-42.9); Hemoglobin 10.9 gm/dl (10.1-14.3); Mean Corpuscular HGB Conc 33 % (30-34); Mean Corpuscular Hemoglobin 28 pg (28-32); Mean Corpuscular Volume 86 fl (79-97); Red Blood Count 3.85 M/mm3 (3.65-5.03); Red Cell Distribution Width 15.2 % (13.2-15.2); White Blood Count 4.5 K/mm3 (4.5-11.0)
[2017-02-06 05:55] LABS: Platelet Count 98 K/mm3 (140-440)
[2017-02-06 05:56] LABS: ISTAT Base Excess -4; ISTAT HCO3 19.2; ISTAT PCO2 25.5 (35-45); ISTAT PH 7.484 (7.35-7.45); ISTAT PO2 93 (80-105); ISTAT SO2 98; ISTAT TCO2 20
[2017-02-06 05:56] LABS: Calcium 8.9 mg/dL (8.4-10.2); Chloride 108.6 mmol/L (98-107)
[2017-02-06 06:00] LABS: Potassium 3.8 mmol/L (3.6-5.0)
[2017-02-06] MEDS: HEPARIN SUB-Q SCH ×2 (06:37→13:40)
[2017-02-06] MEDS: LASIX IV SCH (06:37)
[2017-02-06] MEDS: PROVENTIL IH PRN ×2 (08:19→14:39)
[2017-02-06] MEDS ORDERED: PANCREAZE DR 10,500 UNIT FEEDTUBE PRN (08:29)
[2017-02-06] MEDS ORDERED: SODIUM BICARBONATE FEEDTUBE PRN (08:29)
[2017-02-06] MEDS ORDERED: SIMPLE SYRUP FEEDTUBE PRN ×2 (08:29)
[2017-02-06] MEDS: LOPRESSOR PO SCH ×3 (08:49→19:52)
[2017-02-06] MEDS: APRESOLINE IV PRN ×3 (08:55→19:30)
[2017-02-06] MEDS: PEPCID IV SCH (08:59)
--- NOTE | 2017-02-06 10:45 | Progress Note ---
Assessment and Plan Assessment: Acute combined systolic and diastolic heart failure Cardiomyopathy - EF 20-25% Acute respiratory failure - intubated STEPHANIE on ? CKD Lactic acidosis - trending down Elevated troponin - CK MBs WNL; ECG with no acute ischemic changes; currently nonspecific in setting of renal insufficiency and acutely decompensated HF. HTN Low TSH - free T4 WNL Elevated DDimer - V/Q scan with low probability for PE Mild to moderate MR Mild pulmonary HTN Plan: Cont present cardiac regimen, including IV lasix and lopressor. Would prefer to increase diuretics but hesitant to do so at this time given renal insufficiency. Monitor renal indices. Consult nephrology. No ACEI/ARB at this time given renal insufficiency. Plan for ischemic evaluation to r/o ischemic CMP once medically stable. The patient has been seen in conjunction with Dr. Luis Carpenter who agrees with the assessment and plan of care. Subjective Date of service: 02/06/17 Principal diagnosis: Acute respiratory failure Interval history: Pt remains intubated, alert. Objective Last Vital Signs Temp 99.1 F 02/06/17 03:37 Pulse 76 02/06/17 09:41 Resp 18 02/06/17 09:41 BP 167/82 02/06/17 09:41 Pulse Ox 100 02/06/17 09:41 - Physical Examination General: Other (intubated) HEENT: Positive: PERRL, Normocephaly, Mucus Membranes Moist Neck: Positive: neck supple, trachea midline Cardiac: Positive: Reg Rate and Rhythm, S1/S2 Lungs: Positive: Decreased Breath Sounds, Ventilated Respirations Neuro: Positive: Other (intubated, alert) Abdomen: Positive: Unremarkable, Soft, Active Bowel Sounds. Negative: Tender Skin: Positive: Clear. Negative: Rash Musculoskeletal: No Fluid Collection, No Pain, Normal Range of Motion Extremities: Absent: edema - Labs and Meds Cardiac Enzymes 02/05/17 Range/Units 14:57 CK-MB (CK-2) 1.5 (0.0-4.0) ng/mL CBC 02/06/17 Range/Units 04:58 WBC 4.5 (4.5-11.0) K/mm3 RBC 3.85 (3.65-5.03) M/mm3 Hgb 10.9 (10.1-14.3) gm/dl Hct 33.2 (30.3-42.9) % Plt Count 98 L (140-440) K/mm3 Lymph # 0.8 L (1.2-5.4) K/mm3 [place] # 0.4 (0.0-0.8) K/mm3 Eos # 0.1 (0.0-0.4) K/mm3 Baso # 0.0 (0.0-0.1) K/mm3 Comprehensive Metabolic Panel 02/06/17 Range/Units 04:58 Sodium 150 H (137-145) mmol/L Potassium 3.8 D (3.6-5.0) mmol/L Chloride 108.6 H (98-107) mmol/L Carbon Dioxide 18 L (22-30) mmol/L BUN 59 H (7-17) mg/dL Creatinine 1.8 H (0.7-1.2) mg/dL Glucose 80 (65-100) mg/dL Calcium 8.9 (8.4-10.2) mg/dL - Imaging and Cardiology EKG: report reviewed, image reviewed Echo: pending - EKG Sinus rhythms and dysrhythmias: sinus tachycardia AV and intraventricular conduction: intraventricular conducti Chamber hypertrophy or enlargement: left ventricular hypertro Repolarization changes or abnormalities: early repolarization due to LVH
--- NOTE | 2017-02-06 14:57 | Consultation ---
History of Present Illness - Reason for Consult Consult date: 02/06/17 acute renal failure, other (volume overload) - History of Present Illness The patient is a 71 YO female without any medical history who was admitted on for AMS and SOB. Pt is currently intubated and on the vent. Her son was able to provide some information. Pt lives in [place] and came to [place] as visitor 4 months ago. She has not seen a doctor for many years. On admission CXR showed apparent pulmonary edema and patient was intubated for acute respiratory failure. She was extubated 02/03 and was re-intubated after she failed extubation. Her initial BP was 243/154. On admission her creatinine was 1.5 and has increased to 1.8 today. Patient has been receiving IV lasix. Past History Past Medical History: other (none) Past Surgical History: Other (couldn't obtained because of intubation and no family member) Social history: other (couldn't obtained because of intubation and no family member) Family history: other (couldn't obtained because of intubation and no family member) Medications and Allergies Allergies Allergy/AdvReac Type Severity Reaction Status Date / Time No Known Allergies Allergy Verified 02/01/17 23:49 Home Medications Medication Instructions Recorded Confirmed Last Taken Type No Known Home Medications [No 02/03/17 02/03/17 Unknown History Reported Home Medications] Active Meds: Active Medications Albuterol (Proventil) 2.5 mg IH Q6HRT PRN PRN Reason: Shortness Of Breath Last Admin: 02/06/17 14:39 Dose: 2.5 mg Lipase/Protease/Amylase (Pancreaze Dr 10,500 Unit) 1 each FEEDTUBE PRN PRN PRN Reason: For Clogged Feeding Tube Famotidine (Pepcid) 20 mg IV DAILY KATY Last Admin: 02/06/17 08:59 Dose: 20 mg Hydralazine HCl (Apresoline) 10 mg IV Q4HR PRN PRN Reason: SBP>160 Last Admin: 02/06/17 08:55 Dose: 10 mg Hydrophilic Ointment (Vaseline Lip Therapy) 1 applic TP Q2HR PRN PRN Reason: Dry Lips Propofol (Diprivan 10 Mg/Ml) 1,000 mg in 100 mls @ 1.83 mls/hr IV TITR KATY; 5 MCG/KG/MIN PRN Reason: Protocol Last Titration: 02/06/17 14:43 Dose: 0 mcg/kg/min, 0 mls/hr Metoprolol Tartrate (Lopressor) 25 mg PO TID KATY Last Admin: 02/06/17 13:43 Dose: 25 mg Multi-Ingred Cream/Lotion/Oil/Oint (Artificial Tears Ophth Oint) 1 applic OU Q4HR PRN PRN Reason: Dry Eye(s) Simple Syrup (Simple Syrup) 15 ml FEEDTUBE PRN PRN PRN Reason: Hypoglycemia Simple Syrup (Simple Syrup) 30 ml FEEDTUBE PRN PRN PRN Reason: Hypoglycemia Sodium Bicarbonate (Sodium Bicarbonate) 325 mg FEEDTUBE PRN PRN PRN Reason: For Clogged Feeding Tube Review of Systems ROS unobtainable: due to endotracheal tube Exam - Vital Signs Vital signs: Vital Signs Temp Pulse Resp BP Pulse Ox 98.1 F 126 H 18 243/154 76 L 02/01/17 23:20 02/01/17 23:20 02/01/17 23:20 02/01/17 23:20 02/01/17 23:20 - General Appearance General appearance: well-developed, appears stated age, sedated on ventilator, intubated, other (no obvious distress) EENT: ATNC, PERRL, hearing intact Neck: Present: neck supple, trachea midline Respiratory: Other (coarse breath sounds) Heart: regular, S1S2, no murmurs Gastrointestinal: Present: normoactive bowel sounds. Absent: tenderness, distended Integumentary: no rash, warm and dry Neurologic: other (able to move extremities) Musculoskeletal: Present: other (no edema) Psychiatric: cooperative Results - Lab Results 02/06/17 04:58 02/06/17 04:58 Most recent lab results Calcium 8.9 mg/dL (8.4-10.2) 02/06/17 04:58 Magnesium 2.70 mg/dL (1.7-2.3) H 02/05/17 04:13 - Image Kidney/bladder ultrasound: pending Assessment and Plan 1. Acute kidney injury: STEPHANIE superimposed on CKD stage 3 in the setting of CHF exacerbation. Renal US and Urine studies. Follow renal function. 2. Hypernatremia: Increase water flushes. A dose of Diuril. 3. Volume overload: Patient is diuersing well on IV Lasix. One dose of Diuril today. 4. Metabolic acidosis. 5. Acute combined systolic and diastolic heart failure: Followed by cards. 6. Acute respiratory failure: On vent.
--- NOTE | 2017-02-06 15:16 | Progress Note ---
Assessment and Plan Imp: 1. 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 Acute respiratory failure, hypoxia 3. Lactic acidosis 2/2 above 4. Chest pain, r/o ischemic heart disease 5. STEPHANIE Rec: 1. Rest on ventilator today pending improvement in CXR as she already failed extubation once; needs more diuresis; will re-assess in AM 2. Lopressor PO TID 3. Cardiology on board, f/u recs 4. D/c steroids and ABX; f/u CXR 5. DVT and GI PPx 6. Diuresis with close monitoring of renal function 7. Started TFs + free water 8. Recommend improving BP control 9. Complex patient/decision-making Plan of care reviewed with family, they understand/agree Subjective Date of service: 02/06/17 Principal diagnosis: Acute respiratory failure Interval history: Intubated. On Propofol but easily arouses and responds appropriately (cannot answer questions due to language barrier). Active Medications Albuterol (Proventil) 2.5 mg IH Q6HRT PRN PRN Reason: Shortness Of Breath Last Admin: 02/06/17 14:39 Dose: 2.5 mg Lipase/Protease/Amylase (Pancreaze Dr 10,500 Unit) 1 each FEEDTUBE PRN PRN PRN Reason: For Clogged Feeding Tube Chlorothiazide Sodium (Diuril) 250 mg IV ONCE ONE Stop: 02/06/17 15:05 Famotidine (Pepcid) 20 mg IV DAILY KATY Last Admin: 02/06/17 08:59 Dose: 20 mg Hydralazine HCl (Apresoline) 10 mg IV Q4HR PRN PRN Reason: SBP>160 Last Admin: 02/06/17 08:55 Dose: 10 mg Hydrophilic Ointment (Vaseline Lip Therapy) 1 applic TP Q2HR PRN PRN Reason: Dry Lips Propofol (Diprivan 10 Mg/Ml) 1,000 mg in 100 mls @ 1.83 mls/hr IV TITR KATY; 5 MCG/KG/MIN PRN Reason: Protocol Last Titration: 02/06/17 14:43 Dose: 0 mcg/kg/min, 0 mls/hr Metoprolol Tartrate (Lopressor) 25 mg PO TID KATY Last Admin: 02/06/17 13:43 Dose: 25 mg Multi-Ingred Cream/Lotion/Oil/Oint (Artificial Tears Ophth Oint) 1 applic OU Q4HR PRN PRN Reason: Dry Eye(s) Simple Syrup (Simple Syrup) 15 ml FEEDTUBE PRN PRN PRN Reason: Hypoglycemia Simple Syrup (Simple Syrup) 30 ml FEEDTUBE PRN PRN PRN Reason: Hypoglycemia Sodium Bicarbonate (Sodium Bicarbonate) 325 mg FEEDTUBE PRN PRN PRN Reason: For Clogged Feeding Tube Objective Vital Signs - 12hr 02/06/17 02/06/17 02/06/17 03:21 03:30 03:37 Temperature 99.1 F Pulse Rate 60 60 Pulse Rate [ Bilateral Throughout] Pulse Rate [ From Monitor] Respiratory 18 18 Rate Respiratory Rate [Bilateral Throughout] Blood Pressure 135/77 130/73 O2 Sat by Pulse 99 97 Oximetry 02/06/17 02/06/17 02/06/17 03:41 03:51 04:00 Temperature Pulse Rate 59 L 58 L 59 L Pulse Rate [ Bilateral Throughout] Pulse Rate [ 59 L From Monitor] Respiratory 18 18 18 Rate Respiratory Rate [Bilateral Throughout] Blood Pressure 130/73 136/78 135/76 O2 Sat by Pulse 99 99 96 Oximetry 02/06/17 02/06/17 02/06/17 04:11 04:21 04:30 Temperature Pulse Rate 63 59 L 59 L Pulse Rate [ Bilateral Throughout] Pulse Rate [ From Monitor] Respiratory 18 18 18 Rate Respiratory Rate [Bilateral Throughout] Blood Pressure 135/76 145/78 146/80 O2 Sat by Pulse 99 100 98 Oximetry 02/06/17 02/06/17 02/06/17 04:41 04:51 05:00 Temperature Pulse Rate 59 L 59 L 66 Pulse Rate [ Bilateral Throughout] Pulse Rate [ From Monitor] Respiratory 18 18 16 Rate Respiratory Rate [Bilateral Throughout] Blood Pressure 146/80 138/77 154/82 O2 Sat by Pulse 99 99 96 Oximetry 02/06/17 02/06/17 02/06/17 05:11 05:21 05:31 Temperature Pulse Rate 62 59 L 70 Pulse Rate [ Bilateral Throughout] Pulse Rate [ From Monitor] Respiratory 18 18 19 Rate Respiratory Rate [Bilateral Throughout] Blood Pressure 154/82 149/81 184/91 O2 Sat by Pulse 100 100 97 Oximetry 02/06/17 02/06/17 02/06/17 05:41 05:51 06:00 Temperature Pulse Rate 65 62 63 Pulse Rate [ Bilateral Throughout] Pulse Rate [ From Monitor] Respiratory 18 18 18 Rate Respiratory Rate [Bilateral Throughout] Blood Pressure 184/91 159/85 163/82 O2 Sat by Pulse 100 100 99 Oximetry 02/06/17 02/06/17 02/06/17 06:11 06:21 06:30 Temperature Pulse Rate 64 69 65 Pulse Rate [ Bilateral Throughout] Pulse Rate [ From Monitor] Respiratory 18 18 18 Rate Respiratory Rate [Bilateral Throughout] Blood Pressure 163/82 141/81 155/85 O2 Sat by Pulse 99 100 99 Oximetry 02/06/17 02/06/17 02/06/17 06:41 06:51 06:55 Temperature Pulse Rate 64 61 Pulse Rate [ Bilateral Throughout] Pulse Rate [ 65 From Monitor] Respiratory 18 18 18 Rate Respiratory Rate [Bilateral Throughout] Blood Pressure 155/85 154/79 O2 Sat by Pulse 99 100 99 Oximetry 02/06/17 02/06/17 02/06/17 07:00 07:11 07:21 Temperature Pulse Rate 64 71 64 Pulse Rate [ Bilateral Throughout] Pulse Rate [ From Monitor] Respiratory 18 18 18 Rate Respiratory Rate [Bilateral Throughout] Blood Pressure 147/80 147/80 150/82 O2 Sat by Pulse 100 99 100 Oximetry 02/06/17 02/06/17 02/06/17 07:30 07:41 07:51 Temperature Pulse Rate 61 60 60 Pulse Rate [ Bilateral Throughout] Pulse Rate [ From Monitor] Respiratory 18 18 18 Rate Respiratory Rate [Bilateral Throughout] Blood Pressure 143/77 143/77 139/79 O2 Sat by Pulse 100 100 100 Oximetry 02/06/17 02/06/17 02/06/17 08:00 08:11 08:15 Temperature 98.9 F Pulse Rate 60 84 71 Pulse Rate [ Bilateral Throughout] Pulse Rate [ From Monitor] Respiratory 18 17 Rate Respiratory Rate [Bilateral Throughout] Blood Pressure 142/79 142/79 142/79 O2 Sat by Pulse 99 99 99 Oximetry 02/06/17 02/06/17 02/06/17 08:20 08:21 08:30 Temperature Pulse Rate 72 73 Pulse Rate [ 77 Bilateral Throughout] Pulse Rate [ From Monitor] Respiratory 18 18 Rate Respiratory 18 Rate [Bilateral Throughout] Blood Pressure 180/96 192/97 O2 Sat by Pulse 98 97 Oximetry 02/06/17 02/06/17 02/06/17 08:35 08:41 08:49 Temperature Pulse Rate 73 72 Pulse Rate [ 79 Bilateral Throughout] Pulse Rate [ From Monitor] Respiratory 18 Rate Respiratory 19 Rate [Bilateral Throughout] Blood Pressure 180/96 189/99 O2 Sat by Pulse 98 Oximetry 02/06/17 02/06/17 02/06/17 08:51 08:55 09:00 Temperature Pulse Rate 72 72 72 Pulse Rate [ Bilateral Throughout] Pulse Rate [ From Monitor] Respiratory 18 18 Rate Respiratory Rate [Bilateral Throughout] Blood Pressure 189/97 189/97 183/85 O2 Sat by Pulse 99 99 Oximetry 02/06/17 02/06/17 02/06/17 09:11 09:21 09:30 Temperature Pulse Rate 76 79 75 Pulse Rate [ Bilateral Throughout] Pulse Rate [ From Monitor] Respiratory 18 18 17 Rate Respiratory Rate [Bilateral Throughout] Blood Pressure 183/85 163/78 167/82 O2 Sat by Pulse 98 100 97 Oximetry 02/06/17 02/06/17 02/06/17 09:41 09:51 10:00 Temperature Pulse Rate 76 74 76 Pulse Rate [ Bilateral Throughout] Pulse Rate [ From Monitor] Respiratory 18 17 18 Rate Respiratory Rate [Bilateral Throughout] Blood Pressure 167/82 168/82 164/79 O2 Sat by Pulse 100 99 100 Oximetry 02/06/17 02/06/17 02/06/17 10:11 10:21 10:30 Temperature Pulse Rate 76 77 78 Pulse Rate [ Bilateral Throughout] Pulse Rate [ From Monitor] Respiratory 18 19 18 Rate Respiratory Rate [Bilateral Throughout] Blood Pressure 164/79 159/78 174/82 O2 Sat by Pulse 99 98 99 Oximetry 02/06/17 02/06/17 02/06/17 10:41 10:51 11:00 Temperature Pulse Rate 80 72 74 Pulse Rate [ Bilateral Throughout] Pulse Rate [ From Monitor] Respiratory 18 18 18 Rate Respiratory Rate [Bilateral Throughout] Blood Pressure 174/82 156/81 164/83 O2 Sat by Pulse 99 99 100 Oximetry 02/06/17 02/06/17 02/06/17 11:10 11:11 11:21 Temperature Pulse Rate 76 75 73 Pulse Rate [ Bilateral Throughout] Pulse Rate [ From Monitor] Respiratory 15 18 Rate Respiratory Rate [Bilateral Throughout] Blood Pressure 164/78 164/83 160/78 O2 Sat by Pulse 98 99 97 Oximetry 02/06/17 02/06/17 02/06/17 11:30 11:41 11:51 Temperature Pulse Rate 73 73 77 Pulse Rate [ Bilateral Throughout] Pulse Rate [ From Monitor] Respiratory 19 18 21 Rate Respiratory Rate [Bilateral Throughout] Blood Pressure 147/74 147/74 151/76 O2 Sat by Pulse 99 98 99 Oximetry 02/06/17 02/06/17 02/06/17 12:00 12:10 12:11 Temperature 99 F Pulse Rate 74 75 Pulse Rate [ Bilateral Throughout] Pulse Rate [ 80 From Monitor] Respiratory 19 20 20 Rate Respiratory Rate [Bilateral Throughout] Blood Pressure 152/73 152/73 O2 Sat by Pulse 98 97 99 Oximetry 02/06/17 02/06/17 02/06/17 12:21 12:30 12:41 Temperature Pulse Rate 78 79 75 Pulse Rate [ Bilateral Throughout] Pulse Rate [ From Monitor] Respiratory 18 18 18 Rate Respiratory Rate [Bilateral Throughout] Blood Pressure 171/82 165/89 165/89 O2 Sat by Pulse 100 97 98 Oximetry 02/06/17 02/06/17 02/06/17 12:45 12:50 13:00 Temperature Pulse Rate 75 76 75 Pulse Rate [ Bilateral Throughout] Pulse Rate [ From Monitor] Respiratory 18 18 Rate Respiratory Rate [Bilateral Throughout] Blood Pressure 159/85 155/80 O2 Sat by Pulse 100 99 Oximetry 02/06/17 02/06/17 02/06/17 13:11 13:21 13:30 Temperature Pulse Rate 87 73 76 Pulse Rate [ Bilateral Throughout] Pulse Rate [ From Monitor] Respiratory 22 18 18 Rate Respiratory Rate [Bilateral Throughout] Blood Pressure 155/80 166/83 166/83 O2 Sat by Pulse 100 99 99 Oximetry 02/06/17 02/06/17 02/06/17 13:43 14:37 14:39 Temperature Pulse Rate 93 H 70 Pulse Rate [ 72 Bilateral Throughout] Pulse Rate [ From Monitor] Respiratory Rate Respiratory 18 Rate [Bilateral Throughout] Blood Pressure 166/83 165/84 O2 Sat by Pulse 100 Oximetry 02/06/17 02/06/17 14:51 14:52 Temperature Pulse Rate 74 Pulse Rate [ 75 Bilateral Throughout] Pulse Rate [ From Monitor] Respiratory 19 Rate Respiratory 12 Rate [Bilateral Throughout] Blood Pressure 171/92 O2 Sat by Pulse 98 Oximetry Constitutional: other (intubated, critically ill on vent) Eyes: non-icteric ENT: oropharynx moist Neck: supple Effort: normal Ascultation: Bilateral: other (coarse BS bilaterally) Cardiovascular: regular rate and rhythm (mildly tachy, normal rhythm; no mrg) Gastrointestinal: normoactive bowel sounds, soft, non-tender, non-distended Integumentary: normal Extremities: no cyanosis, no edema, pink and warm, edema Neurologic: normal mental status, non-focal exam, pupils equal and round, CN II- XII normal Psychiatric: mood appropriate, affect normal CBC and BMP: 02/06/17 04:58 02/06/17 04:58 ABG, PT/INR, D-dimer: ABG POC ABG pH 7.484 (7.35-7.45) H 02/06/17 04:14 POC ABG pCO2 25.5 (35-45) L 02/06/17 04:14 POC ABG pO2 93 (80-105) 02/06/17 04:14 POC ABG HCO3 19.2 02/06/17 04:14 POC ABG Total CO2 20 02/06/17 04:14 POC ABG O2 Sat 98 02/06/17 04:14 PT/INR, D-dimer D-Dimer 1146.84 ng/mlDDU (0-234) H 02/01/17 Unknown Abnormal lab findings: Abnormal Labs 02/01/17 02/01/17 02/01/17 Unknown Unknown Unknown RDW Plt Count Lymph % (Auto) [place] % (Auto) Lymph # [place] # Seg Neutrophils % Seg Neutrophils # D-Dimer 1146.84 H POC ABG pH POC ABG pCO2 POC ABG pO2 Sodium Potassium Chloride Carbon Dioxide 20 L BUN 29 H Creatinine 1.5 H Glucose 244 H Lactic Acid 3.10 H* Magnesium AST 168 H ALT 148 H Troponin T NT-Pro-B Natriuret Pep 9824 H Albumin Cholesterol LDL Cholesterol Direct HDL Cholesterol TSH 02/02/17 02/02/17 02/03/17 00:46 05:54 16:58 RDW Plt Count Lymph % (Auto) [place] % (Auto) Lymph # [place] # Seg Neutrophils % Seg Neutrophils # D-Dimer POC ABG pH 7.305 L POC ABG pCO2 53.9 H POC ABG pO2 371 H 69 L Sodium Potassium Chloride Carbon Dioxide BUN Creatinine Glucose Lactic Acid Magnesium AST ALT Troponin T 0.074 H D NT-Pro-B Natriuret Pep Albumin Cholesterol 246 H LDL Cholesterol Direct 148 H HDL Cholesterol 80 H TSH 02/03/17 02/03/17 02/03/17 16:58 16:58 21:24 RDW Plt Count Lymph % (Auto) [place] % (Auto) Lymph # [place] # Seg Neutrophils % Seg Neutrophils # D-Dimer POC ABG pH 7.234 L POC ABG pCO2 60.6 H POC ABG pO2 67 L Sodium Potassium Chloride Carbon Dioxide BUN 50 H Creatinine 1.9 H Glucose 116 H Lactic Acid Magnesium AST ALT Troponin T NT-Pro-B Natriuret Pep Albumin Cholesterol LDL Cholesterol Direct HDL Cholesterol TSH 0.256 L 02/03/17 02/04/17 02/04/17 23:58 04:35 05:32 RDW 15.4 H Plt Count 120 L Lymph % (Auto) 9.2 L [place] % (Auto) 8.3 H Lymph # 1.0 L [place] # 0.9 H Seg Neutrophils % 81.7 H Seg Neutrophils # 8.5 H D-Dimer POC ABG pH 7.490 H POC ABG pCO2 45.9 H 31.3 L POC ABG pO2 389 H 124 H Sodium Potassium Chloride Carbon Dioxide BUN Creatinine Glucose Lactic Acid Magnesium AST ALT Troponin T NT-Pro-B Natriuret Pep Albumin Cholesterol LDL Cholesterol Direct HDL Cholesterol TSH 02/04/17 02/04/17 02/05/17 05:32 05:32 04:13 RDW Plt Count Lymph % (Auto) [place] % (Auto) Lymph # [place] # Seg Neutrophils % Seg Neutrophils # D-Dimer POC ABG pH POC ABG pCO2 POC ABG pO2 Sodium 148 H Potassium 3.4 L 3.0 L Chloride Carbon Dioxide 21 L BUN 52 H 52 H Creatinine 1.9 H 1.8 H Glucose Lactic Acid Magnesium 2.60 H AST 317 H ALT 344 H Troponin T 0.160 H* D NT-Pro-B Natriuret Pep Albumin 3.6 L Cholesterol LDL Cholesterol Direct HDL Cholesterol TSH 02/05/17 02/05/17 02/05/17 04:13 04:39 14:57 RDW Plt Count Lymph % (Auto) [place] % (Auto) Lymph # [place] # Seg Neutrophils % Seg Neutrophils # D-Dimer POC ABG pH 7.482 H POC ABG pCO2 31.0 L POC ABG pO2 132 H Sodium Potassium Chloride Carbon Dioxide BUN Creatinine Glucose Lactic Acid Magnesium 2.70 H AST ALT Troponin T 0.147 H* NT-Pro-B Natriuret Pep Albumin Cholesterol LDL Cholesterol Direct HDL Cholesterol TSH 02/06/17 02/06/17 02/06/17 04:14 04:58 04:58 RDW Plt Count 98 L Lymph % (Auto) [place] % (Auto) 9.3 H Lymph # 0.8 L [place] # Seg Neutrophils % Seg Neutrophils # D-Dimer POC ABG pH 7.484 H POC ABG pCO2 25.5 L POC ABG pO2 Sodium 150 H Potassium Chloride 108.6 H Carbon Dioxide 18 L BUN 59 H Creatinine 1.8 H Glucose Lactic Acid Magnesium AST ALT Troponin T NT-Pro-B Natriuret Pep Albumin Cholesterol LDL Cholesterol Direct HDL Cholesterol TSH Chest x-ray: report reviewed, image reviewed (no change)
[2017-02-06] MEDS ORDERED: DIURIL IV ONE (16:00)
--- NOTE | 2017-02-06 16:45 | Progress Note ---
Assessment and Plan Assessment and plan: 71-year-old woman who recently came to [place] from [place] brought in via EMS for shortness of breath, altered mental status. She was told that she has heart problems by doctors in her country in the past Acute hypoxic respiratory failure, on MV >96hrs Continue mechanical ventilator, attempt to wean daily Acute combined systolic and systolic CHF Continue diuresis, case dw cardiology Acute kidney injury, vasomotor nephropathy Improving with diuresis Hypernatremia/free water deficits Increase free water by NG tube, this was discussed with the nurse Case was discussed with cardiology and pulmonology Case was also discussed with the patient's family at the bedside The high probability of a clinically significant, sudden or life threatening deterioration of the [CV, respiratory] system(s) required my full and direct attention, intervention and personal management. The aggregate critical care time was [31] minutes. This time is in addition to time spent performing reported procedures but includes the following: [x] Data Review and interpretation [x] Patient assessment and monitoring of vital signs [x] Documentation [x] Medication orders and management History Interval history: Patient has been diuresing well, she continues to improve. She was short of breath and so she was intubated, she has been tolerating the ventilator well Review of systems Constitutional: No fevers, no malaise, no joint pains CVS: Orthopnea, GI: No abdominal pain, no diarrhea, no vomiting, no constipation Respiratory: Has not been short of breath since she has been on the ventilator, no wheezing, no coughing Hospitalist Physical - Physical exam Narrative exam: General.: Appears well, no distress, nontoxic HEENT: Moist mucous membranes, extraocular muscles intact, no lymphadenopathy Neck: supple Cardiac: S1-S2 heard Lungs: Bibasilar crackles Abdomen: soft , nontender, nondistended, bowel sounds positive Extremities: no edema clubbing or cyanosis Skin: no rash or lesions Neurologic: no gross focal deficits Intubated, but obeys commands, calm - Constitutional Vitals: Temp Pulse Resp BP Pulse Ox 99 F 74 19 171/92 98 02/06/17 12:00 02/06/17 14:52 02/06/17 14:52 02/06/17 14:52 02/06/17 14:52 General appearance: Present: other (intubated, sedated) Results - Labs CBC & Chem 7: 02/08/17 05:07 02/09/17 07:20 Labs: Laboratory Last Values WBC 4.5 K/mm3 (4.5-11.0) 02/06/17 04:58 RBC 3.85 M/mm3 (3.65-5.03) 02/06/17 04:58 Hgb 10.9 gm/dl (10.1-14.3) 02/06/17 04:58 Hct 33.2 % (30.3-42.9) 02/06/17 04:58 MCV 86 fl (79-97) 02/06/17 04:58 MCH 28 pg (28-32) 02/06/17 04:58 MCHC 33 % (30-34) 02/06/17 04:58 RDW 15.2 % (13.2-15.2) 02/06/17 04:58 Plt Count 98 K/mm3 (140-440) L 02/06/17 04:58 Lymph % (Auto) 18.3 % (13.4-35.0) 02/06/17 04:58 [place] % (Auto) 9.3 % (0.0-7.3) H 02/06/17 04:58 Eos % (Auto) 2.1 % (0.0-4.3) 02/06/17 04:58 Baso % (Auto) 1.0 % (0.0-1.8) 02/06/17 04:58 Lymph # 0.8 K/mm3 (1.2-5.4) L 02/06/17 04:58 [place] # 0.4 K/mm3 (0.0-0.8) 02/06/17 04:58 Eos # 0.1 K/mm3 (0.0-0.4) 02/06/17 04:58 Baso # 0.0 K/mm3 (0.0-0.1) 02/06/17 04:58 Seg Neutrophils % 69.3 % (40.0-70.0) 02/06/17 04:58 Seg Neutrophils # 3.1 K/mm3 (1.8-7.7) 02/06/17 04:58 D-Dimer 1146.84 ng/mlDDU (0-234) H 02/01/17 Unknown POC ABG pH 7.484 (7.35-7.45) H 02/06/17 04:14 POC ABG pCO2 25.5 (35-45) L 02/06/17 04:14 POC ABG pO2 93 (80-105) 02/06/17 04:14 POC ABG HCO3 19.2 02/06/17 04:14 POC ABG Total CO2 20 02/06/17 04:14 POC ABG O2 Sat 98 02/06/17 04:14 POC ABG Base Excess -4 02/06/17 04:14 FiO2 28 % 02/06/17 04:14 Sodium 150 mmol/L (137-145) H 02/06/17 04:58 Potassium 3.8 mmol/L (3.6-5.0) D 02/06/17 04:58 Chloride 108.6 mmol/L (98-107) H 02/06/17 04:58 Carbon Dioxide 18 mmol/L (22-30) L 02/06/17 04:58 Anion Gap 27 mmol/L 02/06/17 04:58 BUN 59 mg/dL (7-17) H 02/06/17 04:58 Creatinine 1.8 mg/dL (0.7-1.2) H 02/06/17 04:58 Estimated GFR 34 ml/min 02/06/17 04:58 BUN/Creatinine Ratio 33 % 02/06/17 04:58 Glucose 80 mg/dL (65-100) 02/06/17 04:58 POC Glucose 73 (70-105) 02/05/17 12:39 Lactic Acid 1.50 mmol/L (0.7-2.0) 02/03/17 16:58 Calcium 8.9 mg/dL (8.4-10.2) 02/06/17 04:58 Magnesium 2.70 mg/dL (1.7-2.3) H 02/05/17 04:13 Total Bilirubin 0.50 mg/dL (0.1-1.2) 02/04/17 05:32 AST 317 units/L (5-40) H 02/04/17 05:32 ALT 344 units/L (7-56) H 02/04/17 05:32 Alkaline Phosphatase 79 units/L (35-129) 02/04/17 05:32 Total Creatine Kinase 55 units/L (30-135) 02/05/17 14:57 CK-MB (CK-2) 1.5 ng/mL (0.0-4.0) 02/05/17 14:57 CK-MB (CK-2) Rel Index 2.7 (0-4) 02/05/17 14:57 Troponin T 0.147 ng/mL (0.00-0.029) H* 02/05/17 14:57 NT-Pro-B Natriuret Pep 9824 pg/mL (0-900) H 02/01/17 Unknown Total Protein 7.0 g/dL (6.3-8.2) 02/04/17 05:32 Albumin 3.6 g/dL (3.9-5) L 02/04/17 05:32 Albumin/Globulin Ratio 1.1 % 02/04/17 05:32 Triglycerides 93 mg/dL (2-149) 02/03/17 16:58 Cholesterol 246 mg/dL (50-199) H 02/03/17 16:58 LDL Cholesterol Direct 148 mg/dL (50-130) H 02/03/17 16:58 HDL Cholesterol 80 mg/dL (40-59) H 02/03/17 16:58 Cholesterol/HDL Ratio 3.07 % 02/03/17 16:58 TSH 0.256 mlU/mL (0.270-4.200) L 02/03/17 16:58 Free T4 1.40 ng/dL (0.76-1.46) 02/05/17 04:13
[2017-02-06 19:01] LABS: Bacteria,Urine 1+ /HPF (Negative); Bilirubin,Urine NEG (Negative); Blood,Urine MOD (Negative); Ketones,Urine 20 mg/dL (Negative); Leukocyte Esterase,Urine NEG (Negative); Mucus,Urine FEW /HPF; Nitrite,Urine NEG (Negative); Protein,Urine <15 mg/dL mg/dL (Negative); Urobilinogen,Urine < 2.0 mg/dL (<2.0)
[2017-02-06] MEDS: DIPRIVAN 10 MG/ML 1,000 MG/100 ML BOTTLE IV SCH (19:53)
--- NOTE | 2017-02-07 03:37 | XRay Report ---
FINAL REPORT PROCEDURE: XR CHEST 1V AP TECHNIQUE: Chest radiograph anteroposterior view. CPT 41759 HISTORY: follow up respiratory failure COMPARISON: 02/06/2017 FINDINGS: Heart: Heart is borderline enlarged. Mediastinum/Vessels: Normal. Lungs/Pleural space: Lungs are expanded and clear. There are no infiltrates, effusions or pneumothoraces.. Previously noted right-sided infiltrate has improved. Bony thorax: There appears to be anterior dislocation of the right glenohumeral joint. Clinical correlation suggested.. Life support devices: ET tube is in the mid trachea. The NG tube is in the stomach.. IMPRESSION: Heart is borderline enlarged. Lungs are expanded and clear. There are no infiltrates, effusions or pneumothoraces.. Previously noted right-sided infiltrate has improved. There appears to be anterior dislocation of the right glenohumeral joint. Clinical correlation suggested.. ET tube is in the mid trachea. The NG tube is in the stomach.. .
[2017-02-07 04:54] LABS: Albumin 3.8 g/dL (3.9-5); Albumin/Globulin Ratio 1.1 %; Bilirubin,Total 0.8 mg/dL (0.1-1.2); Calcium 9.5 mg/dL (8.4-10.2); Chloride 104.1 mmol/L (98-107); Potassium 3.5 mmol/L (3.6-5.0); Total Protein 7.3 g/dL (6.3-8.2)
[2017-02-07] MEDS: LOPRESSOR PO SCH ×2 (07:46→13:05)
--- NOTE | 2017-02-07 08:09 | Progress Note ---
Assessment and Plan 1. Acute kidney injury: STEPHANIE superimposed on CKD stage 3 in the setting of CHF exacerbation. Creatinine level is better today. Follow renal function. Replete K. 2. Hypernatremia: Increase water flushes. Start on HCTZ. 3. Volume overload: Improved with diuretics. 4. Metabolic acidosis: Improving. 5. Acute combined systolic and diastolic heart failure: Followed by cards. 6. Acute respiratory failure: On vent. Subjective Date of service: 02/07/17 Principal diagnosis: Acute respiratory failure Interval history: Patient remain intubated. Objective - Vital Signs Vital signs: Vital Signs - 12hr 02/06/17 02/06/17 02/06/17 20:11 20:21 20:30 Temperature Pulse Rate 80 81 77 Pulse Rate [ Dorsalis Pedis] Pulse Rate [ From Monitor] Pulse Rate [ Left Radial] Pulse Rate [ Right Dorsalis Pedis] Pulse Rate [ Right Radial] Respiratory 18 19 18 Rate Blood Pressure 180/86 152/79 142/70 O2 Sat by Pulse 99 98 97 Oximetry 02/06/17 02/06/17 02/06/17 20:41 20:51 21:00 Temperature Pulse Rate 75 84 83 Pulse Rate [ Dorsalis Pedis] Pulse Rate [ From Monitor] Pulse Rate [ Left Radial] Pulse Rate [ Right Dorsalis Pedis] Pulse Rate [ Right Radial] Respiratory 18 18 18 Rate Blood Pressure 142/70 135/70 153/70 O2 Sat by Pulse 99 99 98 Oximetry 02/06/17 02/06/17 02/06/17 21:11 21:21 21:30 Temperature Pulse Rate 77 84 79 Pulse Rate [ Dorsalis Pedis] Pulse Rate [ From Monitor] Pulse Rate [ Left Radial] Pulse Rate [ Right Dorsalis Pedis] Pulse Rate [ Right Radial] Respiratory 18 18 18 Rate Blood Pressure 153/70 138/69 149/71 O2 Sat by Pulse 99 98 96 Oximetry 02/06/17 02/06/17 02/06/17 21:41 21:50 22:00 Temperature Pulse Rate 83 86 81 Pulse Rate [ Dorsalis Pedis] Pulse Rate [ From Monitor] Pulse Rate [ Left Radial] Pulse Rate [ Right Dorsalis Pedis] Pulse Rate [ Right Radial] Respiratory 18 19 Rate Blood Pressure 149/71 149/71 O2 Sat by Pulse 98 99 Oximetry 02/06/17 02/06/17 02/06/17 22:01 22:11 22:21 Temperature Pulse Rate 84 83 76 Pulse Rate [ Dorsalis Pedis] Pulse Rate [ From Monitor] Pulse Rate [ Left Radial] Pulse Rate [ Right Dorsalis Pedis] Pulse Rate [ Right Radial] Respiratory 18 18 18 Rate Blood Pressure 176/83 176/83 170/85 O2 Sat by Pulse 96 99 99 Oximetry 02/06/17 02/06/17 02/06/17 22:30 22:41 22:48 Temperature Pulse Rate 74 77 72 Pulse Rate [ Dorsalis Pedis] Pulse Rate [ From Monitor] Pulse Rate [ Left Radial] Pulse Rate [ Right Dorsalis Pedis] Pulse Rate [ Right Radial] Respiratory 18 18 18 Rate Blood Pressure 167/82 167/82 167/82 O2 Sat by Pulse 99 99 99 Oximetry 02/06/17 02/06/17 02/06/17 22:51 22:53 22:57 Temperature Pulse Rate 81 99 H Pulse Rate [ 81 Dorsalis Pedis] Pulse Rate [ 81 From Monitor] Pulse Rate [ 81 Left Radial] Pulse Rate [ 81 Right Dorsalis Pedis] Pulse Rate [ 81 Right Radial] Respiratory 20 18 Rate Blood Pressure 163/82 168/82 O2 Sat by Pulse 99 99 94 Oximetry 02/06/17 02/06/17 02/06/17 22:58 23:00 23:01 Temperature Pulse Rate 73 71 72 Pulse Rate [ Dorsalis Pedis] Pulse Rate [ From Monitor] Pulse Rate [ Left Radial] Pulse Rate [ Right Dorsalis Pedis] Pulse Rate [ Right Radial] Respiratory 18 18 18 Rate Blood Pressure 163/82 155/76 155/76 O2 Sat by Pulse 100 99 100 Oximetry 02/06/17 02/06/17 02/06/17 23:11 23:21 23:22 Temperature 99 F Pulse Rate 70 70 Pulse Rate [ Dorsalis Pedis] Pulse Rate [ From Monitor] Pulse Rate [ Left Radial] Pulse Rate [ Right Dorsalis Pedis] Pulse Rate [ Right Radial] Respiratory 18 18 Rate Blood Pressure 155/76 150/79 O2 Sat by Pulse 99 99 Oximetry 02/06/17 02/06/17 02/06/17 23:30 23:41 23:51 Temperature Pulse Rate 73 74 81 Pulse Rate [ Dorsalis Pedis] Pulse Rate [ From Monitor] Pulse Rate [ Left Radial] Pulse Rate [ Right Dorsalis Pedis] Pulse Rate [ Right Radial] Respiratory 18 18 18 Rate Blood Pressure 143/83 143/83 179/102 O2 Sat by Pulse 99 99 100 Oximetry 02/07/17 02/07/17 02/07/17 00:00 00:11 00:21 Temperature Pulse Rate 76 79 85 Pulse Rate [ Dorsalis Pedis] Pulse Rate [ From Monitor] Pulse Rate [ Left Radial] Pulse Rate [ Right Dorsalis Pedis] Pulse Rate [ Right Radial] Respiratory 18 16 19 Rate Blood Pressure 171/85 171/85 163/76 O2 Sat by Pulse 100 99 99 Oximetry 02/07/17 02/07/17 02/07/17 00:30 00:41 00:51 Temperature Pulse Rate 78 77 77 Pulse Rate [ Dorsalis Pedis] Pulse Rate [ From Monitor] Pulse Rate [ Left Radial] Pulse Rate [ Right Dorsalis Pedis] Pulse Rate [ Right Radial] Respiratory 18 18 18 Rate Blood Pressure 168/79 168/79 155/77 O2 Sat by Pulse 99 99 99 Oximetry 02/07/17 02/07/17 02/07/17 01:00 01:10 01:21 Temperature Pulse Rate 81 75 78 Pulse Rate [ Dorsalis Pedis] Pulse Rate [ From Monitor] Pulse Rate [ Left Radial] Pulse Rate [ Right Dorsalis Pedis] Pulse Rate [ Right Radial] Respiratory 19 18 18 Rate Blood Pressure 155/79 155/79 157/80 O2 Sat by Pulse 99 99 99 Oximetry 02/07/17 02/07/17 02/07/17 01:30 01:41 01:51 Temperature Pulse Rate 82 76 77 Pulse Rate [ Dorsalis Pedis] Pulse Rate [ From Monitor] Pulse Rate [ Left Radial] Pulse Rate [ Right Dorsalis Pedis] Pulse Rate [ Right Radial] Respiratory 18 18 18 Rate Blood Pressure 163/84 157/80 156/79 O2 Sat by Pulse 99 100 99 Oximetry 02/07/17 02/07/17 02/07/17 02:00 02:04 02:11 Temperature Pulse Rate 78 77 80 Pulse Rate [ Dorsalis Pedis] Pulse Rate [ From Monitor] Pulse Rate [ Left Radial] Pulse Rate [ Right Dorsalis Pedis] Pulse Rate [ Right Radial] Respiratory 18 18 Rate Blood Pressure 156/79 164/84 156/79 O2 Sat by Pulse 99 99 99 Oximetry 02/07/17 02/07/17 02/07/17 02:21 02:30 02:41 Temperature Pulse Rate 76 73 76 Pulse Rate [ Dorsalis Pedis] Pulse Rate [ From Monitor] Pulse Rate [ Left Radial] Pulse Rate [ Right Dorsalis Pedis] Pulse Rate [ Right Radial] Respiratory 17 18 18 Rate Blood Pressure 156/84 158/84 158/84 O2 Sat by Pulse 100 99 100 Oximetry 02/07/17 02/07/17 02/07/17 02:51 03:00 03:11 Temperature Pulse Rate 70 72 74 Pulse Rate [ Dorsalis Pedis] Pulse Rate [ From Monitor] Pulse Rate [ Left Radial] Pulse Rate [ Right Dorsalis Pedis] Pulse Rate [ Right Radial] Respiratory 18 18 18 Rate Blood Pressure 166/86 169/80 166/86 O2 Sat by Pulse 100 99 100 Oximetry 02/07/17 02/07/17 02/07/17 03:21 03:24 03:30 Temperature 99.8 F H Pulse Rate 70 70 Pulse Rate [ Dorsalis Pedis] Pulse Rate [ From Monitor] Pulse Rate [ Left Radial] Pulse Rate [ Right Dorsalis Pedis] Pulse Rate [ Right Radial] Respiratory 18 18 Rate Blood Pressure 146/79 143/81 O2 Sat by Pulse 100 99 Oximetry 02/07/17 02/07/17 02/07/17 03:41 03:51 04:00 Temperature Pulse Rate 65 70 69 Pulse Rate [ Dorsalis Pedis] Pulse Rate [ From Monitor] Pulse Rate [ Left Radial] Pulse Rate [ Right Dorsalis Pedis] Pulse Rate [ Right Radial] Respiratory 18 18 18 Rate Blood Pressure 146/79 137/84 137/84 O2 Sat by Pulse 100 100 96 Oximetry 02/07/17 02/07/17 02/07/17 04:11 04:21 04:30 Temperature Pulse Rate 69 75 73 Pulse Rate [ Dorsalis Pedis] Pulse Rate [ From Monitor] Pulse Rate [ Left Radial] Pulse Rate [ Right Dorsalis Pedis] Pulse Rate [ Right Radial] Respiratory 18 18 18 Rate Blood Pressure 165/85 182/104 167/84 O2 Sat by Pulse 100 99 99 Oximetry 02/07/17 02/07/17 02/07/17 04:41 04:51 05:00 Temperature Pulse Rate 70 69 67 Pulse Rate [ Dorsalis Pedis] Pulse Rate [ From Monitor] Pulse Rate [ Left Radial] Pulse Rate [ Right Dorsalis Pedis] Pulse Rate [ Right Radial] Respiratory 18 18 18 Rate Blood Pressure 182/104 150/79 160/83 O2 Sat by Pulse 100 100 99 Oximetry 02/07/17 02/07/17 02/07/17 05:11 05:21 05:31 Temperature Pulse Rate 66 78 Pulse Rate [ Dorsalis Pedis] Pulse Rate [ From Monitor] Pulse Rate [ Left Radial] Pulse Rate [ Right Dorsalis Pedis] Pulse Rate [ Right Radial] Respiratory 18 15 Rate Blood Pressure 150/79 157/84 186/85 O2 Sat by Pulse 100 98 94 Oximetry 02/07/17 02/07/17 02/07/17 05:41 05:51 06:00 Temperature Pulse Rate 69 71 69 Pulse Rate [ Dorsalis Pedis] Pulse Rate [ From Monitor] Pulse Rate [ Left Radial] Pulse Rate [ Right Dorsalis Pedis] Pulse Rate [ Right Radial] Respiratory 18 18 18 Rate Blood Pressure 157/84 157/84 153/79 O2 Sat by Pulse 100 100 99 Oximetry 02/07/17 02/07/17 02/07/17 06:11 06:21 06:30 Temperature Pulse Rate 72 81 77 Pulse Rate [ Dorsalis Pedis] Pulse Rate [ From Monitor] Pulse Rate [ Left Radial] Pulse Rate [ Right Dorsalis Pedis] Pulse Rate [ Right Radial] Respiratory 18 20 19 Rate Blood Pressure 186/85 145/76 156/79 O2 Sat by Pulse 99 98 96 Oximetry 02/07/17 02/07/17 06:38 07:46 Temperature Pulse Rate 72 76 Pulse Rate [ Dorsalis Pedis] Pulse Rate [ From Monitor] Pulse Rate [ Left Radial] Pulse Rate [ Right Dorsalis Pedis] Pulse Rate [ Right Radial] Respiratory Rate Blood Pressure 167/84 166/82 O2 Sat by Pulse 100 Oximetry - General Appearance General appearance: well-developed, well-nourished, appears stated age, intubated, other (FiO2 28%) EENT: ATNC, PERRL Neck: supple Respiratory: Present: Other (coarse breath sounds) Cardiology: regular, S1S2, no murmurs Gastrointestinal: normoactive bowel sounds, no tenderness, no distended Integumentary: no rash, warm and dry Neurologic: other (alert) Musculoskeletal: other (no edema) - Lab 02/06/17 04:58 02/07/17 04:15 Most recent lab results Calcium 9.5 mg/dL (8.4-10.2) 02/07/17 04:15 Phosphorus 4.00 mg/dL (2.5-4.5) 02/07/17 04:15 Magnesium 2.70 mg/dL (1.7-2.3) H 02/05/17 04:13 Urine Creatinine 62.5 mg/dL (0.1-20.0) H 02/06/17 15:04 Urine Sodium 130 mmol/L 02/06/17 15:04 Urine Total Protein 22 mg/dL (5-11.8) H 02/06/17 15:04
[2017-02-07 09:09] LABS: ISTAT Base Excess 1; ISTAT HCO3 25.4; ISTAT PCO2 37.9 (35-45); ISTAT PH 7.434 (7.35-7.45); ISTAT PO2 105 (80-105); ISTAT SO2 98; ISTAT TCO2 27
--- NOTE | 2017-02-07 09:11 | Progress Note ---
Assessment and Plan Assessment: Acute combined systolic and diastolic heart failure Cardiomyopathy - EF 20-25% Acute respiratory failure - intubated STEPHANIE on ? CKD Lactic acidosis - trending down Elevated troponin - CK MBs WNL; ECG with no acute ischemic changes; currently nonspecific in setting of renal insufficiency and acutely decompensated HF. HTN Low TSH - free T4 WNL Elevated DDimer - V/Q scan with low probability for PE Mild to moderate MR Mild pulmonary HTN Plan: Cont present cardiac regimen. Monitor renal indices. Diuresis per nephrology. No ACEI/ARB at this time given renal insufficiency. Plan for ischemic evaluation to r/o ischemic CMP once medically stable. The patient has been seen in conjunction with Dr. CELIA Carpenter who agrees with the assessment and plan of care. Subjective Date of service: 02/07/17 Principal diagnosis: Acute respiratory failure Interval history: Pt remains intubated, alert. Objective Last Vital Signs Temp 98.6 F 02/07/17 08:00 Pulse 69 02/07/17 08:41 Resp 18 02/07/17 08:41 BP 171/91 02/07/17 08:41 Pulse Ox 99 02/07/17 08:41 - Physical Examination General: Other (intubated) HEENT: Positive: PERRL, Normocephaly, Mucus Membranes Moist Neck: Positive: neck supple, trachea midline Cardiac: Positive: Reg Rate and Rhythm, S1/S2 Lungs: Positive: Decreased Breath Sounds, Ventilated Respirations Neuro: Positive: Other (intubated, alert) Abdomen: Positive: Unremarkable, Soft, Active Bowel Sounds. Negative: Tender Skin: Positive: Clear. Negative: Rash Musculoskeletal: No Fluid Collection, No Pain, Normal Range of Motion Extremities: Absent: edema - Labs and Meds Cardiac Enzymes 02/07/17 Range/Units 04:15 AST 28 (5-40) units/L Comprehensive Metabolic Panel 02/07/17 Range/Units 04:15 Sodium 147 H (137-145) mmol/L Potassium 3.5 L (3.6-5.0) mmol/L Chloride 104.1 (98-107) mmol/L Carbon Dioxide 21 L (22-30) mmol/L BUN 51 H (7-17) mg/dL Creatinine 1.4 H (0.7-1.2) mg/dL Glucose 110 H (65-100) mg/dL Calcium 9.5 (8.4-10.2) mg/dL AST 28 (5-40) units/L ALT 110 H (7-56) units/L Alkaline Phosphatase 62 (35-129) units/L Total Protein 7.3 (6.3-8.2) g/dL Albumin 3.8 L (3.9-5) g/dL - Imaging and Cardiology EKG: report reviewed, image reviewed Echo: report reviewed - Telemetry EKG Rhythm: Sinus Rhythm - EKG Sinus rhythms and dysrhythmias: sinus tachycardia AV and intraventricular conduction: intraventricular conducti Chamber hypertrophy or enlargement: left ventricular hypertro Repolarization changes or abnormalities: early repolarization due to LVH
[2017-02-07] MEDS ORDERED: POTASSIUM CHLORIDE FEEDTUBE NR (10:30)
[2017-02-07] MEDS ORDERED: HCTZ FEEDTUBE SCH (11:00)
[2017-02-07] MEDS: PEPCID IV SCH (11:11)
--- NOTE | 2017-02-07 13:02 | Progress Note ---
Assessment and Plan Imp: 1. 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 Acute respiratory failure, hypoxia 3. Lactic acidosis 2/2 above 4. Chest pain, r/o ischemic heart disease 5. STEPHANIE 6. Thrombocytopenia Rec: 1. Trial of extubation again; she meets all criteria 2. Lopressor PO TID 3. Cardiology on board, f/u recs 4. D/c steroids and ABX; f/u CXR 5. SCDs and GI PPx; heparin stopped and HIT sent; monitor platelets 6. Diuresis being held 7. TFs + free water 8. HCTZ added by renal today; consider ACEI if renal function improves, versus hydralazine 9. Complex patient/decision-making No family present today Subjective Date of service: 02/07/17 Principal diagnosis: Acute respiratory failure Interval history: Intubated. On PSV 10/ all morning with excellent mechanics and ABG. Awake without complaints. Active Medications Albuterol (Proventil) 2.5 mg IH Q6HRT PRN PRN Reason: Shortness Of Breath Last Admin: 02/06/17 14:39 Dose: 2.5 mg Lipase/Protease/Amylase (Pancreaze Dr 10,500 Unit) 1 each FEEDTUBE PRN PRN PRN Reason: For Clogged Feeding Tube Famotidine (Pepcid) 20 mg IV DAILY [facility] Last Admin: 02/07/17 11:11 Dose: 20 mg Hydralazine HCl (Apresoline) 10 mg IV Q4HR PRN PRN Reason: SBP>160 Last Admin: 02/06/17 19:30 Dose: 10 mg Hydrochlorothiazide (Hctz) 25 mg FEEDTUBE QDAY [facility] Last Admin: 02/07/17 11:11 Dose: 25 mg Hydrophilic Ointment (Vaseline Lip Therapy) 1 applic TP Q2HR PRN PRN Reason: Dry Lips Propofol (Diprivan 10 Mg/Ml) 1,000 mg in 100 mls @ 1.83 mls/hr IV TITR [facility]; 5 MCG/KG/MIN PRN Reason: Protocol Last Titration: 02/07/17 08:30 Dose: 0 mcg/kg/min, 0 mls/hr Metoprolol Tartrate (Lopressor) 25 mg PO TID [facility] Last Admin: 02/07/17 07:46 Dose: 25 mg Multi-Ingred Cream/Lotion/Oil/Oint (Artificial Tears Ophth Oint) 1 applic OU Q4HR PRN PRN Reason: Dry Eye(s) Potassium Chloride (Potassium Chloride) 40 meq FEEDTUBE ONCE NR Stop: 02/07/17 13:00 Last Admin: 02/07/17 11:11 Dose: 40 meq Simple Syrup (Simple Syrup) 15 ml FEEDTUBE PRN PRN PRN Reason: Hypoglycemia Simple Syrup (Simple Syrup) 30 ml FEEDTUBE PRN PRN PRN Reason: Hypoglycemia Sodium Bicarbonate (Sodium Bicarbonate) 325 mg FEEDTUBE PRN PRN PRN Reason: For Clogged Feeding Tube Objective Vital Signs - 12hr 02/07/17 02/07/17 02/07/17 01:00 01:10 01:21 Temperature Pulse Rate 81 75 78 Pulse Rate [ From Monitor] Respiratory 19 18 18 Rate Blood Pressure 155/79 155/79 157/80 O2 Sat by Pulse 99 99 99 Oximetry 02/07/17 02/07/17 02/07/17 01:30 01:41 01:51 Temperature Pulse Rate 82 76 77 Pulse Rate [ From Monitor] Respiratory 18 18 18 Rate Blood Pressure 163/84 157/80 156/79 O2 Sat by Pulse 99 100 99 Oximetry 02/07/17 02/07/17 02/07/17 02:00 02:04 02:11 Temperature Pulse Rate 78 77 80 Pulse Rate [ From Monitor] Respiratory 18 18 Rate Blood Pressure 156/79 164/84 156/79 O2 Sat by Pulse 99 99 99 Oximetry 02/07/17 02/07/17 02/07/17 02:21 02:30 02:41 Temperature Pulse Rate 76 73 76 Pulse Rate [ From Monitor] Respiratory 17 18 18 Rate Blood Pressure 156/84 158/84 158/84 O2 Sat by Pulse 100 99 100 Oximetry 02/07/17 02/07/17 02/07/17 02:51 03:00 03:11 Temperature Pulse Rate 70 72 74 Pulse Rate [ From Monitor] Respiratory 18 18 18 Rate Blood Pressure 166/86 169/80 166/86 O2 Sat by Pulse 100 99 100 Oximetry 02/07/17 02/07/17 02/07/17 03:21 03:24 03:30 Temperature 99.8 F H Pulse Rate 70 70 Pulse Rate [ From Monitor] Respiratory 18 18 Rate Blood Pressure 146/79 143/81 O2 Sat by Pulse 100 99 Oximetry 02/07/17 02/07/17 02/07/17 03:41 03:51 04:00 Temperature Pulse Rate 65 70 69 Pulse Rate [ From Monitor] Respiratory 18 18 18 Rate Blood Pressure 146/79 137/84 137/84 O2 Sat by Pulse 100 100 96 Oximetry 02/07/17 02/07/17 02/07/17 04:11 04:21 04:30 Temperature Pulse Rate 69 75 73 Pulse Rate [ From Monitor] Respiratory 18 18 18 Rate Blood Pressure 165/85 182/104 167/84 O2 Sat by Pulse 100 99 99 Oximetry 02/07/17 02/07/17 02/07/17 04:41 04:51 05:00 Temperature Pulse Rate 70 69 67 Pulse Rate [ From Monitor] Respiratory 18 18 18 Rate Blood Pressure 182/104 150/79 160/83 O2 Sat by Pulse 100 100 99 Oximetry 02/07/17 02/07/17 02/07/17 05:11 05:21 05:31 Temperature Pulse Rate 66 78 Pulse Rate [ From Monitor] Respiratory 18 15 Rate Blood Pressure 150/79 157/84 186/85 O2 Sat by Pulse 100 98 94 Oximetry 02/07/17 02/07/17 02/07/17 05:41 05:51 06:00 Temperature Pulse Rate 69 71 69 Pulse Rate [ From Monitor] Respiratory 18 18 18 Rate Blood Pressure 157/84 157/84 153/79 O2 Sat by Pulse 100 100 99 Oximetry 02/07/17 02/07/17 02/07/17 06:11 06:21 06:30 Temperature Pulse Rate 72 81 77 Pulse Rate [ From Monitor] Respiratory 18 20 19 Rate Blood Pressure 186/85 145/76 156/79 O2 Sat by Pulse 99 98 96 Oximetry 02/07/17 02/07/17 02/07/17 06:38 06:41 06:50 Temperature Pulse Rate 72 83 87 Pulse Rate [ From Monitor] Respiratory 20 23 Rate Blood Pressure 167/84 145/76 165/81 O2 Sat by Pulse 100 99 99 Oximetry 02/07/17 02/07/17 02/07/17 07:00 07:11 07:21 Temperature Pulse Rate 85 87 80 Pulse Rate [ From Monitor] Respiratory 20 21 18 Rate Blood Pressure 154/79 165/81 155/76 O2 Sat by Pulse 97 99 99 Oximetry 1202/07/17 02/07/17 07:30 07:41 07:45 Temperature Pulse Rate 78 76 Pulse Rate [ 75 From Monitor] Respiratory 18 18 18 Rate Blood Pressure 166/82 155/76 O2 Sat by Pulse 98 99 99 Oximetry 02/07/17 02/07/17 02/07/17 07:46 07:51 08:00 Temperature 98.6 F Pulse Rate 76 83 82 Pulse Rate [ From Monitor] Respiratory 18 23 Rate Blood Pressure 166/82 153/76 153/76 O2 Sat by Pulse 99 99 Oximetry 02/07/17 02/07/17 02/07/17 08:11 08:17 08:21 Temperature Pulse Rate 86 74 75 Pulse Rate [ From Monitor] Respiratory 21 17 18 Rate Blood Pressure 153/76 171/91 O2 Sat by Pulse 98 98 98 Oximetry 02/07/17 02/07/17 02/07/17 08:30 08:41 08:50 Temperature Pulse Rate 74 69 69 Pulse Rate [ From Monitor] Respiratory 19 18 20 Rate Blood Pressure 160/87 171/91 166/87 O2 Sat by Pulse 98 99 99 Oximetry 02/07/17 02/07/17 02/07/17 09:00 09:11 09:21 Temperature Pulse Rate 71 69 67 Pulse Rate [ From Monitor] Respiratory 19 19 18 Rate Blood Pressure 166/85 166/87 163/89 O2 Sat by Pulse 97 100 99 Oximetry 02/07/17 02/07/17 02/07/17 09:30 09:41 09:51 Temperature Pulse Rate 64 68 64 Pulse Rate [ From Monitor] Respiratory 18 18 17 Rate Blood Pressure 159/85 159/85 159/85 O2 Sat by Pulse 97 99 100 Oximetry Constitutional: other (intubated, critically ill on vent) Eyes: non-icteric ENT: oropharynx moist Neck: supple Effort: normal Ascultation: Bilateral: clear Cardiovascular: regular rate and rhythm (mildly tachy, normal rhythm; no mrg) Gastrointestinal: normoactive bowel sounds, soft, non-tender, non-distended Integumentary: normal Extremities: no cyanosis, no edema, pink and warm, edema Neurologic: normal mental status, non-focal exam, pupils equal and round, CN II- XII normal Psychiatric: mood appropriate, affect normal CBC and BMP: 02/06/17 04:58 02/07/17 04:15 ABG, PT/INR, D-dimer: ABG POC ABG pH 7.434 (7.35-7.45) 02/07/17 08:32 POC ABG pCO2 37.9 (35-45) 02/07/17 08:32 POC ABG pO2 105 (80-105) 02/07/17 08:32 POC ABG HCO3 25.4 02/07/17 08:32 POC ABG Total CO2 27 02/07/17 08:32 POC ABG O2 Sat 98 02/07/17 08:32 PT/INR, D-dimer D-Dimer 1146.84 ng/mlDDU (0-234) H 02/01/17 Unknown Abnormal lab findings: Abnormal Labs 02/01/17 02/01/17 02/01/17 Unknown Unknown Unknown RDW Plt Count Lymph % (Auto) Martin % (Auto) Lymph # Martin # Seg Neutrophils % Seg Neutrophils # D-Dimer 1146.84 H POC ABG pH POC ABG pCO2 POC ABG pO2 Sodium Potassium Chloride Carbon Dioxide 20 L BUN 29 H Creatinine 1.5 H Glucose 244 H Lactic Acid 3.10 H* Magnesium AST 168 H ALT 148 H Troponin T NT-Pro-B Natriuret Pep 9824 H Albumin Cholesterol LDL Cholesterol Direct HDL Cholesterol TSH Urine Creatinine Urine Total Protein 02/02/17 02/02/17 02/03/17 00:46 05:54 16:58 RDW Plt Count Lymph % (Auto) Martin % (Auto) Lymph # Martin # Seg Neutrophils % Seg Neutrophils # D-Dimer POC ABG pH 7.305 L POC ABG pCO2 53.9 H POC ABG pO2 371 H 69 L Sodium Potassium Chloride Carbon Dioxide BUN Creatinine Glucose Lactic Acid Magnesium AST ALT Troponin T 0.074 H D NT-Pro-B Natriuret Pep Albumin Cholesterol 246 H LDL Cholesterol Direct 148 H HDL Cholesterol 80 H TSH Urine Creatinine Urine Total Protein 02/03/17 02/03/17 02/03/17 16:58 16:58 21:24 RDW Plt Count Lymph % (Auto) Martin % (Auto) Lymph # Martin # Seg Neutrophils % Seg Neutrophils # D-Dimer POC ABG pH 7.234 L POC ABG pCO2 60.6 H POC ABG pO2 67 L Sodium Potassium Chloride Carbon Dioxide BUN 50 H Creatinine 1.9 H Glucose 116 H Lactic Acid Magnesium AST ALT Troponin T NT-Pro-B Natriuret Pep Albumin Cholesterol LDL Cholesterol Direct HDL Cholesterol TSH 0.256 L Urine Creatinine Urine Total Protein 02/03/17 02/04/17 02/04/17 23:58 04:35 05:32 RDW 15.4 H Plt Count 120 L Lymph % (Auto) 9.2 L Martin % (Auto) 8.3 H Lymph # 1.0 L Martin # 0.9 H Seg Neutrophils % 81.7 H Seg Neutrophils # 8.5 H D-Dimer POC ABG pH 7.490 H POC ABG pCO2 45.9 H 31.3 L POC ABG pO2 389 H 124 H Sodium Potassium Chloride Carbon Dioxide BUN Creatinine Glucose Lactic Acid Magnesium AST ALT Troponin T NT-Pro-B Natriuret Pep Albumin Cholesterol LDL Cholesterol Direct HDL Cholesterol TSH Urine Creatinine Urine Total Protein 02/04/17 02/04/17 02/05/17 05:32 05:32 04:13 RDW Plt Count Lymph % (Auto) Martin % (Auto) Lymph # Martin # Seg Neutrophils % Seg Neutrophils # D-Dimer POC ABG pH POC ABG pCO2 POC ABG pO2 Sodium 148 H Potassium 3.4 L 3.0 L Chloride Carbon Dioxide 21 L BUN 52 H 52 H Creatinine 1.9 H 1.8 H Glucose Lactic Acid Magnesium 2.60 H AST 317 H ALT 344 H Troponin T 0.160 H* D NT-Pro-B Natriuret Pep Albumin 3.6 L Cholesterol LDL Cholesterol Direct HDL Cholesterol TSH Urine Creatinine Urine Total Protein 02/05/17 02/05/17 02/05/17 04:13 04:39 14:57 RDW Plt Count Lymph % (Auto) Martin % (Auto) Lymph # Martin # Seg Neutrophils % Seg Neutrophils # D-Dimer POC ABG pH 7.482 H POC ABG pCO2 31.0 L POC ABG pO2 132 H Sodium Potassium Chloride Carbon Dioxide BUN Creatinine Glucose Lactic Acid Magnesium 2.70 H AST ALT Troponin T 0.147 H* NT-Pro-B Natriuret Pep Albumin Cholesterol LDL Cholesterol Direct HDL Cholesterol TSH Urine Creatinine Urine Total Protein 02/06/17 02/06/17 02/06/17 04:14 04:58 04:58 RDW Plt Count 98 L Lymph % (Auto) Martin % (Auto) 9.3 H Lymph # 0.8 L Martin # Seg Neutrophils % Seg Neutrophils # D-Dimer POC ABG pH 7.484 H POC ABG pCO2 25.5 L POC ABG pO2 Sodium 150 H Potassium Chloride 108.6 H Carbon Dioxide 18 L BUN 59 H Creatinine 1.8 H Glucose Lactic Acid Magnesium AST ALT Troponin T NT-Pro-B Natriuret Pep Albumin Cholesterol LDL Cholesterol Direct HDL Cholesterol TSH Urine Creatinine Urine Total Protein 02/06/17 02/07/17 15:04 04:15 RDW Plt Count Lymph % (Auto) Martin % (Auto) Lymph # Martin # Seg Neutrophils % Seg Neutrophils # D-Dimer POC ABG pH POC ABG pCO2 POC ABG pO2 Sodium 147 H Potassium 3.5 L Chloride Carbon Dioxide 21 L BUN 51 H Creatinine 1.4 H Glucose 110 H Lactic Acid Magnesium AST ALT 110 H Troponin T NT-Pro-B Natriuret Pep Albumin 3.8 L Cholesterol LDL Cholesterol Direct HDL Cholesterol TSH Urine Creatinine 62.5 H Urine Total Protein 22 H Chest x-ray: report reviewed, image reviewed (lungs are now clear)
[2017-02-07] MEDS: NORVASC PO SCH (14:08)
[2017-02-07] MEDS: COREG PO SCH ×2 (14:09→23:11)
[2017-02-07 15:04] LABS: Hematocrit 37.9 % (30.3-42.9); Hemoglobin 11.9 gm/dl (10.1-14.3); Mean Corpuscular HGB Conc 32 % (30-34); Mean Corpuscular Hemoglobin 27 pg (28-32); Mean Corpuscular Volume 87 fl (79-97); Platelet Count 112 K/mm3 (140-440); Red Blood Count 4.36 M/mm3 (3.65-5.03); Red Cell Distribution Width 15.2 % (13.2-15.2); White Blood Count 6.6 K/mm3 (4.5-11.0)
--- NOTE | 2017-02-07 18:35 | Ultrasound Report ---
FINAL REPORT EXAM: US RENAL BILAT HISTORY: Acute renal failure. TECHNIQUE: Longitudinal and transverse grayscale and color sonographic images were performed Comparison: None FINDINGS: The right kidney measures 11.2 centimeters with a 1.3 centimeter cortical thickness. Mild increased cortical echogenicity without hydronephrosis, mass lesion or stone. Left kidney measures 10.0 centimeters with 1.3 centimeter renal cortical thickness and mild increased renal cortical echogenicity. No hydronephrosis, mass lesion or stone. Urinary bladder is empty due to T[place] catheter. IMPRESSION: Mild increased renal cortical echogenicity bilaterally compatible with medical renal disease without evidence for hydronephrosis or renal cortical thinning. Empty urinary bladder.
--- NOTE | 2017-02-07 20:16 | Progress Note ---
Assessment and Plan Assessment and plan: 71-year-old woman who recently came to [place] from [place] brought in via EMS for shortness of breath, altered mental status. She was told that she has heart problems [place] doctors [place] in the [place] Acute hypoxic respiratory failure, on MV >96hrs The patient has not been extubated, continue supplemental oxygen. Monitor her closely Acute combined systolic and systolic CHF Continue diuresis, case dw cardiology Cardiac medications have been optimized Acute kidney injury, vasomotor nephropathy Improving with diuresis Hypernatremia/free water deficits Continue free water by NG tube, this was discussed with the nurse Case was discussed with cardiology and pulmonology Case was also discussed with the patient's family at the bedside The high probability of a clinically significant, sudden or life threatening deterioration of the [CV, respiratory] system(s) required my full and direct attention, intervention and personal management. The aggregate critical care time was [31] minutes. This time is in addition to time spent performing reported procedures but includes the following: [x] Data Review and interpretation [x] Patient assessment and monitoring of vital signs [x] Documentation [x] Medication orders and management History Interval history: Patient has been diuresing well, she continues to improve. She was short of breath and so she was intubated, she has been tolerating the ventilator well Review of systems Constitutional: No fevers, no malaise, no joint pains CVS: Orthopnea, GI: No abdominal pain, no diarrhea, no vomiting, no constipation Respiratory: Has not been short of breath since she has been on the ventilator, no wheezing, no coughing Hospitalist Physical - Physical exam Narrative exam: General.: Appears well, no distress, nontoxic HEENT: Moist mucous membranes, extraocular muscles intact, no lymphadenopathy Neck: supple Cardiac: S1-S2 heard Lungs: Bibasilar crackles Abdomen: soft , nontender, nondistended, bowel sounds positive Extremities: no edema clubbing or cyanosis Skin: no rash or lesions Neurologic: no gross focal deficits Intubated, but obeys commands, calm - Constitutional Vitals: Temp Pulse Resp BP Pulse Ox 98.6 F 77 23 145/89 99 02/07/17 16:00 02/07/17 19:41 02/07/17 19:41 02/07/17 19:41 02/07/17 19:41 General appearance: Present: other (intubated, sedated) Results - Labs CBC & Chem 7: 02/08/17 05:07 02/09/17 07:20 Labs: Laboratory Last Values WBC 6.6 K/mm3 (4.5-11.0) 02/07/17 14:42 RBC 4.36 M/mm3 (3.65-5.03) 02/07/17 14:42 Hgb 11.9 gm/dl (10.1-14.3) 02/07/17 14:42 Hct 37.9 % (30.3-42.9) 02/07/17 14:42 MCV 87 fl (79-97) 02/07/17 14:42 MCH 27 pg (28-32) L 02/07/17 14:42 MCHC 32 % (30-34) 02/07/17 14:42 RDW 15.2 % (13.2-15.2) 02/07/17 14:42 Plt Count 112 K/mm3 (140-440) L 02/07/17 14:42 Lymph % (Auto) 18.3 % (13.4-35.0) 02/06/17 04:58 [place] % (Auto) 9.3 % (0.0-7.3) H 02/06/17 04:58 Eos % (Auto) 2.1 % (0.0-4.3) 02/06/17 04:58 Baso % (Auto) 1.0 % (0.0-1.8) 02/06/17 04:58 Lymph # 0.8 K/mm3 (1.2-5.4) L 02/06/17 04:58 [place] # 0.4 K/mm3 (0.0-0.8) 02/06/17 04:58 Eos # 0.1 K/mm3 (0.0-0.4) 02/06/17 04:58 Baso # 0.0 K/mm3 (0.0-0.1) 02/06/17 04:58 Seg Neutrophils % 69.3 % (40.0-70.0) 02/06/17 04:58 Seg Neutrophils # 3.1 K/mm3 (1.8-7.7) 02/06/17 04:58 D-Dimer 1146.84 ng/mlDDU (0-234) H 02/01/17 Unknown POC ABG pH 7.434 (7.35-7.45) 02/07/17 08:32 POC ABG pCO2 37.9 (35-45) 02/07/17 08:32 POC ABG pO2 105 (80-105) 02/07/17 08:32 POC ABG HCO3 25.4 02/07/17 08:32 POC ABG Total CO2 27 02/07/17 08:32 POC ABG O2 Sat 98 02/07/17 08:32 POC ABG Base Excess 1 02/07/17 08:32 FiO2 28 % 02/07/17 08:32 Sodium 147 mmol/L (137-145) H 02/07/17 04:15 Potassium 3.5 mmol/L (3.6-5.0) L 02/07/17 04:15 Chloride 104.1 mmol/L (98-107) 02/07/17 04:15 Carbon Dioxide 21 mmol/L (22-30) L 02/07/17 04:15 Anion Gap 25 mmol/L 02/07/17 04:15 BUN 51 mg/dL (7-17) H 02/07/17 04:15 Creatinine 1.4 mg/dL (0.7-1.2) H 02/07/17 04:15 Estimated GFR 45 ml/min 02/07/17 04:15 BUN/Creatinine Ratio 36 % 02/07/17 04:15 Glucose 110 mg/dL (65-100) H 02/07/17 04:15 POC Glucose 73 (70-105) 02/05/17 12:39 Lactic Acid 1.50 mmol/L (0.7-2.0) 02/03/17 16:58 Calcium 9.5 mg/dL (8.4-10.2) 02/07/17 04:15 Phosphorus 4.00 mg/dL (2.5-4.5) 02/07/17 04:15 Magnesium 2.70 mg/dL (1.7-2.3) H 02/05/17 04:13 Total Bilirubin 0.80 mg/dL (0.1-1.2) 02/07/17 04:15 AST 28 units/L (5-40) 02/07/17 04:15 ALT 110 units/L (7-56) H 02/07/17 04:15 Alkaline Phosphatase 62 units/L (35-129) 02/07/17 04:15 Total Creatine Kinase 55 units/L (30-135) 02/05/17 14:57 CK-MB (CK-2) 1.5 ng/mL (0.0-4.0) 02/05/17 14:57 CK-MB (CK-2) Rel Index 2.7 (0-4) 02/05/17 14:57 Troponin T 0.147 ng/mL (0.00-0.029) H* 02/05/17 14:57 NT-Pro-B Natriuret Pep 9824 pg/mL (0-900) H 02/01/17 Unknown Total Protein 7.3 g/dL (6.3-8.2) 02/07/17 04:15 Albumin 3.8 g/dL (3.9-5) L 02/07/17 04:15 Albumin/Globulin Ratio 1.1 % 02/07/17 04:15 Triglycerides 93 mg/dL (2-149) 02/03/17 16:58 Cholesterol 246 mg/dL (50-199) H 02/03/17 16:58 LDL Cholesterol Direct 148 mg/dL (50-130) H 02/03/17 16:58 HDL Cholesterol 80 mg/dL (40-59) H 02/03/17 16:58 Cholesterol/HDL Ratio 3.07 % 02/03/17 16:58 TSH 0.256 mlU/mL (0.270-4.200) L 02/03/17 16:58 Free T4 1.40 ng/dL (0.76-1.46) 02/05/17 04:13 Urine Color Yellow (Yellow) 02/06/17 15:04 Urine Turbidity Clear (Clear) 02/06/17 15:04 Urine pH 6.0 (5.0-7.0) 02/06/17 15:04 Ur Specific [place] 1.014 (1.003-1.030) 02/06/17 15:04 Urine Protein <15 mg/dl mg/dL (Negative) 02/06/17 15:04 Urine Glucose (UA) Neg mg/dL (Negative) 02/06/17 15:04 Urine Ketones 20 mg/dL (Negative) 02/06/17 15:04 Urine Blood Mod (Negative) 02/06/17 15:04 Urine Nitrite Neg (Negative) 02/06/17 15:04 Urine Bilirubin Neg (Negative) 02/06/17 15:04 Urine Urobilinogen < 2.0 mg/dL (<2.0) 02/06/17 15:04 Ur Leukocyte Esterase Neg (Negative) 02/06/17 15:04 Urine WBC (Auto) 2.0 /HPF (0.0-6.0) 02/06/17 15:04 Urine RBC (Auto) 32.0 /HPF (0.0-6.0) 02/06/17 15:04 Urine Bacteria (Auto) 1+ /HPF (Negative) 02/06/17 15:04 Urine Mucus Few /HPF 02/06/17 15:04 Urine Creatinine 62.5 mg/dL (0.1-20.0) H 02/06/17 15:04 Protein/Creatinin Ratio 0.35 02/06/17 15:04 Urine Sodium 130 mmol/L 02/06/17 15:04 Urine Total Protein 22 mg/dL (5-11.8) H 02/06/17 15:04
[2017-02-08 05:41] LABS: Basophils % (Auto) 1.1 % (0.0-1.8); Eosinophils % (Auto) 10.6 % (0.0-4.3); Hematocrit 38.3 % (30.3-42.9); Hemoglobin 12.4 gm/dl (10.1-14.3); Mean Corpuscular HGB Conc 32 % (30-34); Mean Corpuscular Hemoglobin 28 pg (28-32); Mean Corpuscular Volume 85 fl (79-97); Red Cell Distribution Width 15.4 % (13.2-15.2); White Blood Count 5.1 K/mm3 (4.5-11.0)
[2017-02-08 05:47] LABS: Platelet Count 112 K/mm3 (140-440)
[2017-02-08 06:02] LABS: Calcium 9.4 mg/dL (8.4-10.2); Chloride 96.5 mmol/L (98-107); Potassium 4.2 mmol/L (3.6-5.0)
--- NOTE | 2017-02-08 06:22 | Progress Note ---
Assessment and Plan 1. Acute kidney injury: STEPHANIE superimposed on CKD stage 3 in the setting of CHF exacerbation. Creatinine level continue to get better. Follow renal function. 2. Hypernatremia: Improved. 3. Volume overload: Improved with diuretics. 4. Metabolic acidosis: Improved. 5. Acute combined systolic and diastolic heart failure: Followed by cards. 6. Acute respiratory failure: S/p extubated. Subjective Date of service: 02/08/17 Principal diagnosis: Acute respiratory failure Interval history: Patient got extubated. Objective - Vital Signs Vital signs: Vital Signs - 12hr 02/07/17 02/07/17 02/07/17 18:30 18:41 18:51 Temperature Pulse Rate 74 75 76 Pulse Rate [ From Monitor] Respiratory 22 18 22 Rate Blood Pressure 155/91 155/91 156/89 O2 Sat by Pulse 97 99 99 Oximetry 02/07/17 02/07/17 02/07/17 19:00 19:11 19:21 Temperature Pulse Rate 77 76 78 Pulse Rate [ From Monitor] Respiratory 23 22 24 Rate Blood Pressure 153/91 153/91 154/90 O2 Sat by Pulse 97 98 98 Oximetry 02/07/17 02/07/17 02/07/17 19:30 19:40 19:41 Temperature Pulse Rate 79 77 Pulse Rate [ 77 From Monitor] Respiratory 19 22 23 Rate Blood Pressure 145/89 145/89 O2 Sat by Pulse 97 99 99 Oximetry 02/07/17 02/07/17 02/07/17 20:00 20:21 20:31 Temperature 98.4 F Pulse Rate 76 77 Pulse Rate [ From Monitor] Respiratory 24 22 Rate Blood Pressure 145/90 146/85 O2 Sat by Pulse 96 98 94 Oximetry 02/07/17 02/07/17 02/07/17 21:01 21:31 22:01 Temperature Pulse Rate 87 81 78 Pulse Rate [ From Monitor] Respiratory 23 22 21 Rate Blood Pressure 146/121 137/93 146/121 O2 Sat by Pulse 98 96 97 Oximetry 02/07/17 02/07/17 02/07/17 22:31 23:01 23:11 Temperature Pulse Rate 75 78 78 Pulse Rate [ From Monitor] Respiratory 23 24 Rate Blood Pressure 146/121 137/93 140/89 O2 Sat by Pulse 97 99 Oximetry 02/07/17 02/07/17 02/07/17 23:13 23:15 23:31 Temperature Pulse Rate 80 77 79 Pulse Rate [ From Monitor] Respiratory 23 22 Rate Blood Pressure 140/89 140/89 O2 Sat by Pulse 98 99 Oximetry 02/08/17 02/08/17 02/08/17 00:00 00:01 00:30 Temperature 98.0 F Pulse Rate 77 72 Pulse Rate [ From Monitor] Respiratory 17 21 Rate Blood Pressure 121/76 123/82 O2 Sat by Pulse 96 96 Oximetry 02/08/17 02/08/17 02/08/17 01:00 01:31 02:00 Temperature Pulse Rate 71 85 75 Pulse Rate [ From Monitor] Respiratory 24 18 29 H Rate Blood Pressure 133/93 163/110 155/101 O2 Sat by Pulse 96 98 Oximetry 02/08/17 02/08/17 02/08/17 02:31 03:00 03:31 Temperature Pulse Rate 70 67 68 Pulse Rate [ From Monitor] Respiratory 24 23 23 Rate Blood Pressure 146/97 148/96 141/88 O2 Sat by Pulse 100 100 100 Oximetry 02/08/17 02/08/17 04:00 04:05 Temperature 98.6 F Pulse Rate 88 Pulse Rate [ From Monitor] Respiratory 27 H Rate Blood Pressure 148/96 O2 Sat by Pulse Oximetry - General Appearance General appearance: well-developed, well-nourished, appears stated age, other ( no distress) EENT: ATNC, PERRL, mucous membranes moist, hearing intact Neck: supple Respiratory: Present: Clear to Ascultation Cardiology: regular, S1S2, no murmurs Gastrointestinal: normoactive bowel sounds, no tenderness, no distended Integumentary: no rash, warm and dry Neurologic: no focal deficit, no asterixis Musculoskeletal: other (no edema) Psychiatric: mood/affect appropriate, cooperative - Lab 02/08/17 05:07 02/08/17 05:07 Most recent lab results Calcium 9.4 mg/dL (8.4-10.2) 02/08/17 05:07 Phosphorus 4.00 mg/dL (2.5-4.5) 02/07/17 04:15 Magnesium 2.00 mg/dL (1.7-2.3) 02/08/17 05:07 Urine Creatinine 62.5 mg/dL (0.1-20.0) H 02/06/17 15:04 Urine Sodium 130 mmol/L 02/06/17 15:04 Urine Total Protein 22 mg/dL (5-11.8) H 02/06/17 15:04
--- NOTE | 2017-02-08 11:37 | Progress Note ---
Assessment and Plan - Patient Problems (1) Acute renal insufficiency Current Visit: Yes Status: Acute (2) CHF exacerbation Current Visit: Yes Status: Acute (3) Elevated lactic acid level Current Visit: Yes Status: Acute (4) Pneumonia Current Visit: Yes Status: Acute (5) Respiratory failure Current Visit: Yes Status: Acute Subjective Principal diagnosis: Acute respiratory failure Interval history: extubated Objective Vital Signs - 12hr 02/08/17 02/08/17 02/08/17 00:00 00:01 00:30 Temperature 98.0 F Pulse Rate 77 72 Respiratory 17 21 Rate Blood Pressure 121/76 123/82 O2 Sat by Pulse 96 96 Oximetry 02/08/17 02/08/17 02/08/17 01:00 01:31 02:00 Temperature Pulse Rate 71 85 75 Respiratory 24 18 29 H Rate Blood Pressure 133/93 163/110 155/101 O2 Sat by Pulse 96 98 Oximetry 02/08/17 02/08/17 02/08/17 02:31 03:00 03:31 Temperature Pulse Rate 70 67 68 Respiratory 24 23 23 Rate Blood Pressure 146/97 148/96 141/88 O2 Sat by Pulse 100 100 100 Oximetry 02/08/17 02/08/17 02/08/17 04:00 04:05 04:31 Temperature 98.6 F Pulse Rate 88 72 Respiratory 27 H 22 Rate Blood Pressure 148/96 153/90 O2 Sat by Pulse 97 Oximetry 02/08/17 02/08/17 02/08/17 05:00 05:30 06:00 Temperature Pulse Rate 68 69 73 Respiratory 17 16 15 Rate Blood Pressure 160/96 151/90 151/90 O2 Sat by Pulse 97 96 98 Oximetry 02/08/17 02/08/17 02/08/17 06:30 07:00 07:30 Temperature Pulse Rate 71 70 73 Respiratory 17 16 21 Rate Blood Pressure 158/86 128/87 138/88 O2 Sat by Pulse 98 96 97 Oximetry 02/08/17 02/08/17 08:00 08:44 Temperature 97.9 F Pulse Rate 77 Respiratory 24 Rate Blood Pressure 145/93 O2 Sat by Pulse 97 98 Oximetry Constitutional: no acute distress, alert, other Eyes: non-icteric ENT: oropharynx moist Neck: supple Effort: normal Ascultation: Bilateral: clear, rales Percussion: Bilateral: not dull Cardiovascular: regular rate and rhythm (mildly tachy, normal rhythm; no mrg) Gastrointestinal: normoactive bowel sounds, soft, non-tender, non-distended Integumentary: normal Extremities: no cyanosis, no edema, pink and warm, edema Neurologic: normal mental status, non-focal exam, pupils equal and round, CN II- XII normal Psychiatric: mood appropriate, affect normal CBC and BMP: 02/08/17 05:07 02/08/17 05:07 ABG, PT/INR, D-dimer: ABG POC ABG pH 7.434 (7.35-7.45) 02/07/17 08:32 POC ABG pCO2 37.9 (35-45) 02/07/17 08:32 POC ABG pO2 105 (80-105) 02/07/17 08:32 POC ABG HCO3 25.4 02/07/17 08:32 POC ABG Total CO2 27 02/07/17 08:32 POC ABG O2 Sat 98 02/07/17 08:32 PT/INR, D-dimer D-Dimer 1146.84 ng/mlDDU (0-234) H 02/01/17 Unknown Abnormal lab findings: Abnormal Labs 02/01/17 02/01/17 02/01/17 Unknown Unknown Unknown MCH RDW Plt Count Lymph % (Auto) [place] % (Auto) Eos % (Auto) Lymph # [place] # Eos # Seg Neutrophils % Seg Neutrophils # D-Dimer 1146.84 H POC ABG pH POC ABG pCO2 POC ABG pO2 Sodium Potassium Chloride Carbon Dioxide 20 L BUN 29 H Creatinine 1.5 H Glucose 244 H Lactic Acid 3.10 H* Magnesium AST 168 H ALT 148 H Troponin T NT-Pro-B Natriuret Pep 9824 H Albumin Cholesterol LDL Cholesterol Direct HDL Cholesterol TSH Urine Creatinine Urine Total Protein 02/02/17 02/02/17 02/03/17 00:46 05:54 16:58 MCH RDW Plt Count Lymph % (Auto) [place] % (Auto) Eos % (Auto) Lymph # [place] # Eos # Seg Neutrophils % Seg Neutrophils # D-Dimer POC ABG pH 7.305 L POC ABG pCO2 53.9 H POC ABG pO2 371 H 69 L Sodium Potassium Chloride Carbon Dioxide BUN Creatinine Glucose Lactic Acid Magnesium AST ALT Troponin T 0.074 H D NT-Pro-B Natriuret Pep Albumin Cholesterol 246 H LDL Cholesterol Direct 148 H HDL Cholesterol 80 H TSH Urine Creatinine Urine Total Protein 02/03/17 02/03/17 02/03/17 16:58 16:58 21:24 MCH RDW Plt Count Lymph % (Auto) [place] % (Auto) Eos % (Auto) Lymph # [place] # Eos # Seg Neutrophils % Seg Neutrophils # D-Dimer POC ABG pH 7.234 L POC ABG pCO2 60.6 H POC ABG pO2 67 L Sodium Potassium Chloride Carbon Dioxide BUN 50 H Creatinine 1.9 H Glucose 116 H Lactic Acid Magnesium AST ALT Troponin T NT-Pro-B Natriuret Pep Albumin Cholesterol LDL Cholesterol Direct HDL Cholesterol TSH 0.256 L Urine Creatinine Urine Total Protein 02/03/17 02/04/17 02/04/17 23:58 04:35 05:32 MCH RDW 15.4 H Plt Count 120 L Lymph % (Auto) 9.2 L [place] % (Auto) 8.3 H Eos % (Auto) Lymph # 1.0 L [place] # 0.9 H Eos # Seg Neutrophils % 81.7 H Seg Neutrophils # 8.5 H D-Dimer POC ABG pH 7.490 H POC ABG pCO2 45.9 H 31.3 L POC ABG pO2 389 H 124 H Sodium Potassium Chloride Carbon Dioxide BUN Creatinine Glucose Lactic Acid Magnesium AST ALT Troponin T NT-Pro-B Natriuret Pep Albumin Cholesterol LDL Cholesterol Direct HDL Cholesterol TSH Urine Creatinine Urine Total Protein 02/04/17 02/04/17 02/05/17 05:32 05:32 04:13 MCH RDW Plt Count Lymph % (Auto) [place] % (Auto) Eos % (Auto) Lymph # [place] # Eos # Seg Neutrophils % Seg Neutrophils # D-Dimer POC ABG pH POC ABG pCO2 POC ABG pO2 Sodium 148 H Potassium 3.4 L 3.0 L Chloride Carbon Dioxide 21 L BUN 52 H 52 H Creatinine 1.9 H 1.8 H Glucose Lactic Acid Magnesium 2.60 H AST 317 H ALT 344 H Troponin T 0.160 H* D NT-Pro-B Natriuret Pep Albumin 3.6 L Cholesterol LDL Cholesterol Direct HDL Cholesterol TSH Urine Creatinine Urine Total Protein 02/05/17 02/05/17 02/05/17 04:13 04:39 14:57 MCH RDW Plt Count Lymph % (Auto) [place] % (Auto) Eos % (Auto) Lymph # [place] # Eos # Seg Neutrophils % Seg Neutrophils # D-Dimer POC ABG pH 7.482 H POC ABG pCO2 31.0 L POC ABG pO2 132 H Sodium Potassium Chloride Carbon Dioxide BUN Creatinine Glucose Lactic Acid Magnesium 2.70 H AST ALT Troponin T 0.147 H* NT-Pro-B Natriuret Pep Albumin Cholesterol LDL Cholesterol Direct HDL Cholesterol TSH Urine Creatinine Urine Total Protein 02/06/17 02/06/17 02/06/17 04:14 04:58 04:58 MCH RDW Plt Count 98 L Lymph % (Auto) [place] % (Auto) 9.3 H Eos % (Auto) Lymph # 0.8 L [place] # Eos # Seg Neutrophils % Seg Neutrophils # D-Dimer POC ABG pH 7.484 H POC ABG pCO2 25.5 L POC ABG pO2 Sodium 150 H Potassium Chloride 108.6 H Carbon Dioxide 18 L BUN 59 H Creatinine 1.8 H Glucose Lactic Acid Magnesium AST ALT Troponin T NT-Pro-B Natriuret Pep Albumin Cholesterol LDL Cholesterol Direct HDL Cholesterol TSH Urine Creatinine Urine Total Protein 02/06/17 02/07/17 02/07/17 15:04 04:15 14:42 MCH 27 L RDW Plt Count 112 L Lymph % (Auto) [place] % (Auto) Eos % (Auto) Lymph # [place] # Eos # Seg Neutrophils % Seg Neutrophils # D-Dimer POC ABG pH POC ABG pCO2 POC ABG pO2 Sodium 147 H Potassium 3.5 L Chloride Carbon Dioxide 21 L BUN 51 H Creatinine 1.4 H Glucose 110 H Lactic Acid Magnesium AST ALT 110 H Troponin T NT-Pro-B Natriuret Pep Albumin 3.8 L Cholesterol LDL Cholesterol Direct HDL Cholesterol TSH Urine Creatinine 62.5 H Urine Total Protein 22 H 02/08/17 02/08/17 05:07 05:07 MCH RDW 15.4 H Plt Count 112 L Lymph % (Auto) [place] % (Auto) 8.5 H Eos % (Auto) 10.6 H Lymph # [place] # Eos # 0.5 H Seg Neutrophils % Seg Neutrophils # D-Dimer POC ABG pH POC ABG pCO2 POC ABG pO2 Sodium 136 L D Potassium Chloride 96.5 L Carbon Dioxide BUN 41 H Creatinine Glucose 104 H Lactic Acid Magnesium AST ALT Troponin T NT-Pro-B Natriuret Pep Albumin Cholesterol LDL Cholesterol Direct HDL Cholesterol TSH Urine Creatinine Urine Total Protein
[2017-02-08] MEDS: NORVASC PO SCH (11:43)
[2017-02-08] MEDS: COREG PO SCH ×2 (11:44→23:29)
[2017-02-08] MEDS: PEPCID IV SCH (11:44)
--- NOTE | 2017-02-08 12:01 | Progress Note ---
Assessment and Plan Assessment and plan: 71-year-old woman who recently came to [place] from [place] brought in via EMS for shortness of breath, altered mental status. She was told that she has heart problems [place] doctors [place] Acute hypoxic respiratory failure, on MV >96hrs Patient was extubated on 02/07/17, doing well, wean off supplemental oxygen. Acute combined systolic and systolic CHF Continue diuresis, case dw cardiology Cardiac medications have been optimized Acute kidney injury, vasomotor nephropathy Improving with diuresis Hypernatremia/free water deficits Resolved with free water placements. If patient continues to do well, we'll transfer her to the telemetry floor Case was discussed with cardiology and pulmonology Case was also discussed with the patient's family at the bedside The high probability of a clinically significant, sudden or life threatening deterioration of the [CV, respiratory] system(s) required my full and direct attention, intervention and personal management. The aggregate critical care time was [31] minutes. This time is in addition to time spent performing reported procedures but includes the following: [x] Data Review and interpretation [x] Patient assessment and monitoring of vital signs [x] Documentation [x] Medication orders and management History Interval history: She was extubated yesterday, she's been doing well, denies shortness of breath Review of systems Constitutional: No fevers, no malaise, no joint pains CVS: Denies orthopnea or bipedal edema GI: No abdominal pain, no diarrhea, no vomiting, no constipation Respiratory: Denies shortness of breath, Hospitalist Physical - Physical exam Narrative exam: General.: Appears well, no distress, nontoxic HEENT: Moist mucous membranes, extraocular muscles intact, no lymphadenopathy Neck: supple Cardiac: S1-S2 heard Lungs: Bibasilar crackles Abdomen: soft , nontender, nondistended, bowel sounds positive Extremities: no edema clubbing or cyanosis Skin: no rash or lesions Neurologic: no gross focal deficits Psychiatric: Appropriate calm and cooperative. Judgment intact - Constitutional Vitals: Temp Pulse Resp BP Pulse Ox 97.9 F 77 24 145/93 98 02/08/17 08:00 02/08/17 08:00 02/08/17 08:00 02/08/17 08:00 02/08/17 08:44 General appearance: Present: other (intubated, sedated) Results - Labs CBC & Chem 7: 02/08/17 05:07 02/09/17 07:20 Labs: Laboratory Last Values WBC 5.1 K/mm3 (4.5-11.0) 02/08/17 05:07 RBC 4.50 M/mm3 (3.65-5.03) 02/08/17 05:07 Hgb 12.4 gm/dl (10.1-14.3) 02/08/17 05:07 Hct 38.3 % (30.3-42.9) 02/08/17 05:07 MCV 85 fl (79-97) 02/08/17 05:07 MCH 28 pg (28-32) 02/08/17 05:07 MCHC 32 % (30-34) 02/08/17 05:07 RDW 15.4 % (13.2-15.2) H 02/08/17 05:07 Plt Count 112 K/mm3 (140-440) L 02/08/17 05:07 Lymph % (Auto) 22.8 % (13.4-35.0) 02/08/17 05:07 [place] % (Auto) 8.5 % (0.0-7.3) H 02/08/17 05:07 Eos % (Auto) 10.6 % (0.0-4.3) H 02/08/17 05:07 Baso % (Auto) 1.1 % (0.0-1.8) 02/08/17 05:07 Lymph # 1.2 K/mm3 (1.2-5.4) 02/08/17 05:07 [place] # 0.4 K/mm3 (0.0-0.8) 02/08/17 05:07 Eos # 0.5 K/mm3 (0.0-0.4) H 02/08/17 05:07 Baso # 0.1 K/mm3 (0.0-0.1) 02/08/17 05:07 Seg Neutrophils % 57.0 % (40.0-70.0) 02/08/17 05:07 Seg Neutrophils # 2.9 K/mm3 (1.8-7.7) 02/08/17 05:07 D-Dimer 1146.84 ng/mlDDU (0-234) H 02/01/17 Unknown POC ABG pH 7.434 (7.35-7.45) 02/07/17 08:32 POC ABG pCO2 37.9 (35-45) 02/07/17 08:32 POC ABG pO2 105 (80-105) 02/07/17 08:32 POC ABG HCO3 25.4 02/07/17 08:32 POC ABG Total CO2 27 02/07/17 08:32 POC ABG O2 Sat 98 02/07/17 08:32 POC ABG Base Excess 1 02/07/17 08:32 FiO2 28 % 02/07/17 08:32 Sodium 136 mmol/L (137-145) L D 02/08/17 05:07 Potassium 4.2 mmol/L (3.6-5.0) 02/08/17 05:07 Chloride 96.5 mmol/L (98-107) L 02/08/17 05:07 Carbon Dioxide 25 mmol/L (22-30) 02/08/17 05:07 Anion Gap 19 mmol/L 02/08/17 05:07 BUN 41 mg/dL (7-17) H 02/08/17 05:07 Creatinine 1.1 mg/dL (0.7-1.2) 02/08/17 05:07 Estimated GFR 60 ml/min 02/08/17 05:07 BUN/Creatinine Ratio 37 % 02/08/17 05:07 Glucose 104 mg/dL (65-100) H 02/08/17 05:07 POC Glucose 73 (70-105) 02/05/17 12:39 Lactic Acid 1.50 mmol/L (0.7-2.0) 02/03/17 16:58 Calcium 9.4 mg/dL (8.4-10.2) 02/08/17 05:07 Phosphorus 4.00 mg/dL (2.5-4.5) 02/07/17 04:15 Magnesium 2.00 mg/dL (1.7-2.3) 02/08/17 05:07 Total Bilirubin 0.80 mg/dL (0.1-1.2) 02/07/17 04:15 AST 28 units/L (5-40) 02/07/17 04:15 ALT 110 units/L (7-56) H 02/07/17 04:15 Alkaline Phosphatase 62 units/L (35-129) 02/07/17 04:15 Total Creatine Kinase 55 units/L (30-135) 02/05/17 14:57 CK-MB (CK-2) 1.5 ng/mL (0.0-4.0) 02/05/17 14:57 CK-MB (CK-2) Rel Index 2.7 (0-4) 02/05/17 14:57 Troponin T 0.147 ng/mL (0.00-0.029) H* 02/05/17 14:57 NT-Pro-B Natriuret Pep 9824 pg/mL (0-900) H 02/01/17 Unknown Total Protein 7.3 g/dL (6.3-8.2) 02/07/17 04:15 Albumin 3.8 g/dL (3.9-5) L 02/07/17 04:15 Albumin/Globulin Ratio 1.1 % 02/07/17 04:15 Triglycerides 93 mg/dL (2-149) 02/03/17 16:58 Cholesterol 246 mg/dL (50-199) H 02/03/17 16:58 LDL Cholesterol Direct 148 mg/dL (50-130) H 02/03/17 16:58 HDL Cholesterol 80 mg/dL (40-59) H 02/03/17 16:58 Cholesterol/HDL Ratio 3.07 % 02/03/17 16:58 TSH 0.256 mlU/mL (0.270-4.200) L 02/03/17 16:58 Free T4 1.40 ng/dL (0.76-1.46) 02/05/17 04:13 Urine Color Yellow (Yellow) 02/06/17 15:04 Urine Turbidity Clear (Clear) 02/06/17 15:04 Urine pH 6.0 (5.0-7.0) 02/06/17 15:04 Ur Specific [place] 1.014 (1.003-1.030) 02/06/17 15:04 Urine Protein <15 mg/dl mg/dL (Negative) 02/06/17 15:04 Urine Glucose (UA) Neg mg/dL (Negative) 02/06/17 15:04 Urine Ketones 20 mg/dL (Negative) 02/06/17 15:04 Urine Blood Mod (Negative) 02/06/17 15:04 Urine Nitrite Neg (Negative) 02/06/17 15:04 Urine Bilirubin Neg (Negative) 02/06/17 15:04 Urine Urobilinogen < 2.0 mg/dL (<2.0) 02/06/17 15:04 Ur Leukocyte Esterase Neg (Negative) 02/06/17 15:04 Urine WBC (Auto) 2.0 /HPF (0.0-6.0) 02/06/17 15:04 Urine RBC (Auto) 32.0 /HPF (0.0-6.0) 02/06/17 15:04 Urine Bacteria (Auto) 1+ /HPF (Negative) 02/06/17 15:04 Urine Mucus Few /HPF 02/06/17 15:04 Urine Creatinine 62.5 mg/dL (0.1-20.0) H 02/06/17 15:04 Protein/Creatinin Ratio 0.35 02/06/17 15:04 Urine Sodium 130 mmol/L 02/06/17 15:04 Urine Total Protein 22 mg/dL (5-11.8) H 02/06/17 15:04
--- NOTE | 2017-02-08 12:21 | Progress Note ---
Assessment and Plan 71yo female: Assessment: Acute combined systolic and diastolic heart failure Cardiomyopathy - EF 20-25% Acute respiratory failure - intubated STEPHANIE on ? CKD - improved Lactic acidosis - trending down Elevated troponin - CK MBs WNL; ECG with no acute ischemic changes; currently nonspecific in setting of renal insufficiency and acutely decompensated HF. HTN Low TSH - free T4 WNL Elevated DDimer - V/Q scan with low probability for PE Mild to moderate MR Mild pulmonary HTN Thrombocytopenia Plan: Cont present cardiac regimen. transfer to tele Monitor renal indices. Diuresis per nephrology. No ACEI/ARB at this time given recent renal insufficiency. Plan for ischemic evaluation to r/o ischemic CMP once medically stable. Possible [facility] - will reassess status in am Subjective Date of service: 02/08/17 Principal diagnosis: Acute respiratory failure Interval history: extubated, feeling better no cp Objective Vital Signs Temp Pulse Pulse Resp BP Pulse Ox 02/08/17 08:44 98 02/08/17 08:00 97.9 F 77 24 145/93 97 02/08/17 07:30 73 21 138/88 97 02/08/17 07:00 70 16 128/87 96 02/08/17 06:30 71 17 158/86 98 02/08/17 06:00 73 15 151/90 98 02/08/17 05:30 69 16 151/90 96 02/08/17 05:00 68 17 160/96 97 02/08/17 04:31 72 22 153/90 97 02/08/17 04:05 88 27 H 148/96 02/08/17 04:00 98.6 F 02/08/17 03:31 68 23 141/88 100 02/08/17 03:00 67 23 148/96 100 02/08/17 02:31 70 24 146/97 100 02/08/17 02:00 75 29 H 155/101 98 02/08/17 01:31 85 18 163/110 02/08/17 01:00 71 24 133/93 96 02/08/17 00:30 72 21 123/82 96 02/08/17 00:01 77 17 121/76 96 02/08/17 00:00 98.0 F 02/07/17 23:31 79 22 140/89 99 02/07/17 23:15 77 02/07/17 23:13 80 23 140/89 98 02/07/17 23:11 78 140/89 02/07/17 23:01 78 24 137/93 99 02/07/17 22:31 75 23 146/121 97 02/07/17 22:01 78 21 146/121 97 02/07/17 21:31 81 22 137/93 96 02/07/17 21:01 87 23 146/121 98 02/07/17 20:31 77 22 146/85 94 02/07/17 20:21 98 02/07/17 20:00 98.4 F 76 24 145/90 96 02/07/17 19:41 77 23 145/89 99 02/07/17 19:40 77 22 99 02/07/17 19:30 79 19 145/89 97 02/07/17 19:21 78 24 154/90 98 02/07/17 19:11 76 22 153/91 98 02/07/17 19:00 77 23 153/91 97 02/07/17 18:51 76 22 156/89 99 02/07/17 18:41 75 18 155/91 99 02/07/17 18:30 74 22 155/91 97 02/07/17 18:21 77 21 148/89 98 02/07/17 18:11 74 23 154/86 98 02/07/17 18:00 72 22 154/86 97 02/07/17 17:51 82 21 158/87 99 02/07/17 17:41 73 23 150/84 98 02/07/17 17:31 98 02/07/17 17:30 74 24 150/84 97 02/07/17 17:21 78 22 142/83 97 02/07/17 17:11 74 22 136/79 99 02/07/17 17:00 76 23 136/79 97 02/07/17 16:51 75 23 166/79 98 02/07/17 16:41 76 24 163/82 98 02/07/17 16:35 76 23 97 02/07/17 16:30 80 19 163/82 98 02/07/17 16:21 74 23 152/82 99 02/07/17 16:11 72 19 150/89 99 02/07/17 16:00 98.6 F 73 25 H 150/89 98 02/07/17 15:51 72 23 143/84 99 02/07/17 15:41 74 23 144/84 99 02/07/17 15:30 73 20 144/84 96 02/07/17 15:21 72 21 147/78 98 02/07/17 15:11 76 16 142/74 98 02/07/17 15:00 75 22 142/74 97 02/07/17 14:51 80 21 142/83 98 02/07/17 14:41 81 22 152/90 97 02/07/17 14:31 82 24 152/90 95 02/07/17 14:21 81 22 169/91 98 02/07/17 14:11 83 24 156/132 98 02/07/17 14:09 75 175/103 02/07/17 14:08 78 175/103 02/07/17 14:04 98 02/07/17 14:00 80 22 175/103 96 02/07/17 13:51 77 18 171/101 100 02/07/17 13:41 75 19 163/94 100 02/07/17 13:30 75 16 163/94 99 02/07/17 13:21 74 17 162/83 99 02/07/17 13:11 78 18 166/84 96 02/07/17 13:05 76 166/84 02/07/17 13:00 75 18 166/84 98 02/07/17 12:58 75 19 164/84 100 02/07/17 12:51 71 19 164/84 100 02/07/17 12:41 73 18 168/91 100 02/07/17 12:30 74 19 168/91 98 02/07/17 12:21 70 19 164/92 100 02/07/17 12:20 74 19 100 - Physical Examination General: Other (intubated) HEENT: Positive: PERRL, Normocephaly, Mucus Membranes Moist Neck: Positive: neck supple, trachea midline Neuro: Positive: Other (intubated, alert) Abdomen: Positive: Unremarkable, Soft, Active Bowel Sounds. Negative: Tender Skin: Positive: Clear. Negative: Rash Musculoskeletal: No Fluid Collection, No Pain, Normal Range of Motion Extremities: Absent: edema - Labs and Meds CBC 02/07/17 02/08/17 Range/Units 14:42 05:07 WBC 6.6 5.1 (4.5-11.0) K/mm3 RBC 4.36 4.50 (3.65-5.03) M/mm3 Hgb 11.9 12.4 (10.1-14.3) gm/dl Hct 37.9 38.3 (30.3-42.9) % Plt Count 112 L 112 L (140-440) K/mm3 Lymph # 1.2 (1.2-5.4) K/mm3 [place] # 0.4 (0.0-0.8) K/mm3 Eos # 0.5 H (0.0-0.4) K/mm3 Baso # 0.1 (0.0-0.1) K/mm3 Comprehensive Metabolic Panel 02/08/17 Range/Units 05:07 Sodium 136 L D (137-145) mmol/L Potassium 4.2 (3.6-5.0) mmol/L Chloride 96.5 L (98-107) mmol/L Carbon Dioxide 25 (22-30) mmol/L BUN 41 H (7-17) mg/dL Creatinine 1.1 (0.7-1.2) mg/dL Glucose 104 H (65-100) mg/dL Calcium 9.4 (8.4-10.2) mg/dL - Imaging and Cardiology EKG: report reviewed, image reviewed Echo: report reviewed - EKG Sinus rhythms and dysrhythmias: sinus tachycardia AV and intraventricular conduction: intraventricular conducti Chamber hypertrophy or enlargement: left ventricular hypertro Repolarization changes or abnormalities: early repolarization due to LVH
[2017-02-08] MEDS: HCTZ FEEDTUBE SCH (19:01)
[2017-02-09 08:04] LABS: Calcium 9.2 mg/dL (8.4-10.2); Potassium 3.7 mmol/L (3.6-5.0)
--- NOTE | 2017-02-09 09:32 | Progress Note ---
Assessment and Plan 1. Acute kidney injury: STEPHANIE superimposed on CKD stage 3 in the setting of CHF exacerbation. Creatinine level is better. Follow renal function. 2. Hypernatremia: Improved. 3. Volume overload: Improved with diuretics. 4. Metabolic acidosis: Improved. 5. Acute combined systolic and diastolic heart failure: Followed by cards. 6. Acute respiratory failure: S/p extubated. Subjective Date of service: 02/09/17 Principal diagnosis: Acute respiratory failure Interval history: Patient was seen and examined at the bedside. Objective - Vital Signs Vital signs: Vital Signs - 12hr 02/08/17 02/08/17 02/09/17 22:00 23:29 00:19 Temperature 98.2 F Pulse Rate 68 86 72 Respiratory 16 Rate Blood Pressure 139/94 Blood Pressure 140/83 [Left] O2 Sat by Pulse 95 Oximetry 02/09/17 02/09/17 02/09/17 03:14 04:00 08:59 Temperature 97.8 F Pulse Rate 70 Respiratory 16 Rate Blood Pressure 116/74 Blood Pressure [Left] O2 Sat by Pulse 96 96 96 Oximetry 02/09/17 09:15 Temperature 98.4 F Pulse Rate 85 Respiratory 16 Rate Blood Pressure 130/79 Blood Pressure [Left] O2 Sat by Pulse 93 Oximetry - General Appearance General appearance: well-developed, well-nourished, appears stated age, other ( no distress) EENT: ATNC, PERRL Neck: supple Respiratory: Present: Clear to Ascultation Cardiology: S1S2, no murmurs Gastrointestinal: normoactive bowel sounds, no tenderness, no distended Integumentary: no rash, warm and dry Neurologic: no focal deficit, no asterixis Musculoskeletal: other (no edema) Psychiatric: mood/affect appropriate, cooperative - Lab 02/08/17 05:07 02/09/17 07:20 Most recent lab results Calcium 9.2 mg/dL (8.4-10.2) 02/09/17 07:20 Phosphorus 4.00 mg/dL (2.5-4.5) 02/07/17 04:15 Magnesium 2.00 mg/dL (1.7-2.3) 02/08/17 05:07 Urine Creatinine 62.5 mg/dL (0.1-20.0) H 02/06/17 15:04 Urine Sodium 130 mmol/L 02/06/17 15:04 Urine Total Protein 22 mg/dL (5-11.8) H 02/06/17 15:04
[2017-02-09] MEDS: COREG PO SCH ×2 (10:37→22:45)
[2017-02-09] MEDS: NORVASC PO SCH (10:37)
[2017-02-09] MEDS: PEPCID IV SCH (10:37)
[2017-02-09] MEDS: HCTZ FEEDTUBE SCH (10:37)
--- NOTE | 2017-02-09 11:45 | Progress Note ---
Assessment and Plan 71yo female: Assessment: Acute combined systolic and diastolic heart failure Cardiomyopathy - EF 20-25% Acute respiratory failure - intubated STEPHANIE on ? CKD - improved HTN Low TSH - free T4 WNL Elevated DDimer - V/Q scan with low probability for PE Mild to moderate MR Mild pulmonary HTN Thrombocytopenia Plan: Cont present cardiac regimen. transfer to [facility] given new dx severe cm * given language barrier will need manager hi for informed consent Subjective Date of service: 02/09/17 Principal diagnosis: Acute respiratory failure Interval history: extubated, feeling better no cp Objective Vital Signs Temp Pulse Resp BP BP Pulse Ox 02/09/17 09:40 72 02/09/17 09:15 98.4 F 85 16 130/79 93 02/09/17 08:59 96 02/09/17 04:00 97.8 F 70 16 116/74 96 02/09/17 03:14 96 02/09/17 00:19 98.2 F 72 16 140/83 95 02/08/17 23:29 86 139/94 02/08/17 22:00 68 02/08/17 20:36 82 26 H 139/94 96 02/08/17 20:30 86 26 H 139/94 97 02/08/17 20:01 97 02/08/17 20:00 98.9 F 80 24 131/82 97 02/08/17 19:30 84 25 H 131/84 97 02/08/17 19:00 83 23 132/82 97 02/08/17 18:30 84 23 131/80 97 02/08/17 18:00 80 24 135/81 95 02/08/17 17:30 77 24 124/77 96 02/08/17 17:00 78 24 124/77 96 02/08/17 16:33 98.8 F 02/08/17 16:30 77 22 128/83 98 02/08/17 16:01 79 21 131/80 97 02/08/17 15:31 78 26 H 135/85 97 02/08/17 15:00 75 25 H 139/91 97 02/08/17 14:30 75 22 124/80 98 02/08/17 14:00 73 20 118/77 96 02/08/17 13:30 69 22 117/75 95 02/08/17 13:01 63 27 H 109/67 96 02/08/17 12:30 79 26 H 124/75 96 02/08/17 12:00 97.8 F 79 21 139/91 96 - Physical Examination General: Other (intubated) HEENT: Positive: PERRL, Normocephaly, Mucus Membranes Moist Neck: Positive: neck supple, trachea midline Neuro: Positive: Other (intubated, alert) Abdomen: Positive: Unremarkable, Soft, Active Bowel Sounds. Negative: Tender Skin: Positive: Clear. Negative: Rash Musculoskeletal: No Fluid Collection, No Pain, Normal Range of Motion Extremities: Absent: edema - Labs and Meds Comprehensive Metabolic Panel 02/09/17 Range/Units 07:20 Sodium 139 (137-145) mmol/L Potassium 3.7 (3.6-5.0) mmol/L Chloride 99.0 (98-107) mmol/L Carbon Dioxide 24 (22-30) mmol/L BUN 44 H (7-17) mg/dL Creatinine 1.1 (0.7-1.2) mg/dL Glucose 83 (65-100) mg/dL Calcium 9.2 (8.4-10.2) mg/dL - Imaging and Cardiology EKG: report reviewed, image reviewed Echo: report reviewed - EKG Sinus rhythms and dysrhythmias: sinus tachycardia AV and intraventricular conduction: intraventricular conducti Chamber hypertrophy or enlargement: left ventricular hypertro Repolarization changes or abnormalities: early repolarization due to LVH
--- NOTE | 2017-02-09 13:21 | Progress Note ---
Assessment and Plan - Patient Problems (1) Acute renal insufficiency Current Visit: Yes Status: Acute (2) CHF exacerbation Current Visit: Yes Status: Acute (3) Elevated lactic acid level Current Visit: Yes Status: Acute (4) Pneumonia Current Visit: Yes Status: Acute (5) Respiratory failure Current Visit: Yes Status: Acute Subjective Principal diagnosis: Acute respiratory failure Interval history: feels better Objective Vital Signs - 12hr 02/09/17 02/09/17 02/09/17 03:14 04:00 08:59 Temperature 97.8 F Pulse Rate 70 Respiratory 16 Rate Blood Pressure 116/74 O2 Sat by Pulse 96 96 96 Oximetry 02/09/17 02/09/17 02/09/17 09:15 09:40 11:45 Temperature 98.4 F 97.7 F Pulse Rate 85 72 77 Respiratory 16 18 Rate Blood Pressure 130/79 136/86 O2 Sat by Pulse 93 98 Oximetry Constitutional: no acute distress, alert Eyes: non-icteric ENT: oropharynx moist Neck: supple Effort: normal Ascultation: Bilateral: clear, diminished breath sounds, rales, other (coarse BS bilaterally) Percussion: Bilateral: not dull Cardiovascular: regular rate and rhythm (mildly tachy, normal rhythm; no mrg) Gastrointestinal: normoactive bowel sounds, soft, non-tender, non-distended Integumentary: normal Extremities: no cyanosis, no edema, pink and warm, edema Neurologic: normal mental status, non-focal exam, pupils equal and round, CN II- XII normal Psychiatric: mood appropriate, affect normal CBC and BMP: 02/08/17 05:07 02/09/17 07:20 ABG, PT/INR, D-dimer: ABG POC ABG pH 7.434 (7.35-7.45) 02/07/17 08:32 POC ABG pCO2 37.9 (35-45) 02/07/17 08:32 POC ABG pO2 105 (80-105) 02/07/17 08:32 POC ABG HCO3 25.4 02/07/17 08:32 POC ABG Total CO2 27 02/07/17 08:32 POC ABG O2 Sat 98 02/07/17 08:32 PT/INR, D-dimer D-Dimer 1146.84 ng/mlDDU (0-234) H 02/01/17 Unknown Abnormal lab findings: Abnormal Labs 02/01/17 02/01/17 02/01/17 Unknown Unknown Unknown MCH RDW Plt Count Lymph % (Auto) [place] % (Auto) Eos % (Auto) Lymph # [place] # Eos # Seg Neutrophils % Seg Neutrophils # D-Dimer 1146.84 H POC ABG pH POC ABG pCO2 POC ABG pO2 Sodium Potassium Chloride Carbon Dioxide 20 L BUN 29 H Creatinine 1.5 H Glucose 244 H Lactic Acid 3.10 H* Magnesium AST 168 H ALT 148 H Troponin T NT-Pro-B Natriuret Pep 9824 H Albumin Cholesterol LDL Cholesterol Direct HDL Cholesterol TSH Urine Creatinine Urine Total Protein 02/02/17 02/02/17 02/03/17 00:46 05:54 16:58 MCH RDW Plt Count Lymph % (Auto) [place] % (Auto) Eos % (Auto) Lymph # [place] # Eos # Seg Neutrophils % Seg Neutrophils # D-Dimer POC ABG pH 7.305 L POC ABG pCO2 53.9 H POC ABG pO2 371 H 69 L Sodium Potassium Chloride Carbon Dioxide BUN Creatinine Glucose Lactic Acid Magnesium AST ALT Troponin T 0.074 H D NT-Pro-B Natriuret Pep Albumin Cholesterol 246 H LDL Cholesterol Direct 148 H HDL Cholesterol 80 H TSH Urine Creatinine Urine Total Protein 02/03/17 02/03/17 02/03/17 16:58 16:58 21:24 MCH RDW Plt Count Lymph % (Auto) [place] % (Auto) Eos % (Auto) Lymph # [place] # Eos # Seg Neutrophils % Seg Neutrophils # D-Dimer POC ABG pH 7.234 L POC ABG pCO2 60.6 H POC ABG pO2 67 L Sodium Potassium Chloride Carbon Dioxide BUN 50 H Creatinine 1.9 H Glucose 116 H Lactic Acid Magnesium AST ALT Troponin T NT-Pro-B Natriuret Pep Albumin Cholesterol LDL Cholesterol Direct HDL Cholesterol TSH 0.256 L Urine Creatinine Urine Total Protein 02/03/17 02/04/17 02/04/17 23:58 04:35 05:32 MCH RDW 15.4 H Plt Count 120 L Lymph % (Auto) 9.2 L [place] % (Auto) 8.3 H Eos % (Auto) Lymph # 1.0 L [place] # 0.9 H Eos # Seg Neutrophils % 81.7 H Seg Neutrophils # 8.5 H D-Dimer POC ABG pH 7.490 H POC ABG pCO2 45.9 H 31.3 L POC ABG pO2 389 H 124 H Sodium Potassium Chloride Carbon Dioxide BUN Creatinine Glucose Lactic Acid Magnesium AST ALT Troponin T NT-Pro-B Natriuret Pep Albumin Cholesterol LDL Cholesterol Direct HDL Cholesterol TSH Urine Creatinine Urine Total Protein 02/04/17 02/04/17 02/05/17 05:32 05:32 04:13 MCH RDW Plt Count Lymph % (Auto) [place] % (Auto) Eos % (Auto) Lymph # [place] # Eos # Seg Neutrophils % Seg Neutrophils # D-Dimer POC ABG pH POC ABG pCO2 POC ABG pO2 Sodium 148 H Potassium 3.4 L 3.0 L Chloride Carbon Dioxide 21 L BUN 52 H 52 H Creatinine 1.9 H 1.8 H Glucose Lactic Acid Magnesium 2.60 H AST 317 H ALT 344 H Troponin T 0.160 H* D NT-Pro-B Natriuret Pep Albumin 3.6 L Cholesterol LDL Cholesterol Direct HDL Cholesterol TSH Urine Creatinine Urine Total Protein 02/05/17 02/05/17 02/05/17 04:13 04:39 14:57 MCH RDW Plt Count Lymph % (Auto) [place] % (Auto) Eos % (Auto) Lymph # [place] # Eos # Seg Neutrophils % Seg Neutrophils # D-Dimer POC ABG pH 7.482 H POC ABG pCO2 31.0 L POC ABG pO2 132 H Sodium Potassium Chloride Carbon Dioxide BUN Creatinine Glucose Lactic Acid Magnesium 2.70 H AST ALT Troponin T 0.147 H* NT-Pro-B Natriuret Pep Albumin Cholesterol LDL Cholesterol Direct HDL Cholesterol TSH Urine Creatinine Urine Total Protein 02/06/17 02/06/17 02/06/17 04:14 04:58 04:58 MCH RDW Plt Count 98 L Lymph % (Auto) [place] % (Auto) 9.3 H Eos % (Auto) Lymph # 0.8 L [place] # Eos # Seg Neutrophils % Seg Neutrophils # D-Dimer POC ABG pH 7.484 H POC ABG pCO2 25.5 L POC ABG pO2 Sodium 150 H Potassium Chloride 108.6 H Carbon Dioxide 18 L BUN 59 H Creatinine 1.8 H Glucose Lactic Acid Magnesium AST ALT Troponin T NT-Pro-B Natriuret Pep Albumin Cholesterol LDL Cholesterol Direct HDL Cholesterol TSH Urine Creatinine Urine Total Protein 02/06/17 02/07/17 02/07/17 15:04 04:15 14:42 MCH 27 L RDW Plt Count 112 L Lymph % (Auto) [place] % (Auto) Eos % (Auto) Lymph # [place] # Eos # Seg Neutrophils % Seg Neutrophils # D-Dimer POC ABG pH POC ABG pCO2 POC ABG pO2 Sodium 147 H Potassium 3.5 L Chloride Carbon Dioxide 21 L BUN 51 H Creatinine 1.4 H Glucose 110 H Lactic Acid Magnesium AST ALT 110 H Troponin T NT-Pro-B Natriuret Pep Albumin 3.8 L Cholesterol LDL Cholesterol Direct HDL Cholesterol TSH Urine Creatinine 62.5 H Urine Total Protein 22 H 02/08/17 02/08/17 02/09/17 05:07 05:07 07:20 MCH RDW 15.4 H Plt Count 112 L Lymph % (Auto) [place] % (Auto) 8.5 H Eos % (Auto) 10.6 H Lymph # [place] # Eos # 0.5 H Seg Neutrophils % Seg Neutrophils # D-Dimer POC ABG pH POC ABG pCO2 POC ABG pO2 Sodium 136 L D Potassium Chloride 96.5 L Carbon Dioxide BUN 41 H 44 H Creatinine Glucose 104 H Lactic Acid Magnesium AST ALT Troponin T NT-Pro-B Natriuret Pep Albumin Cholesterol LDL Cholesterol Direct HDL Cholesterol TSH Urine Creatinine Urine Total Protein
--- NOTE | 2017-02-09 13:26 | Progress Note ---
Assessment and Plan Assessment and plan: 71-year-old woman who recently came to [place] from [place] brought in via EMS for shortness of breath, altered mental status. She was told that she has heart problems by doctors in her country in the past Acute hypoxic respiratory failure, on MV >96hrs Patient was extubated on 02/07/17, doing well, weaned off supplemental oxygen. Acute combined systolic and systolic CHF Continue diuresis, case dw cardiology Cardiac medications have been optimized Plan for stress test tomorrow morning. Acute kidney injury, vasomotor nephropathy Resolved with diuresis Hypernatremia/free water deficits Resolved with free water placements. Discontinue [place] catheter, planned for possible discharge home tomorrow. After stress test if negative Case was discussed with cardiology and pulmonology Case was also discussed with the patient's family at the bedside History Interval history: , she's been doing well, denies shortness of breath Review of systems Constitutional: No fevers, no malaise, no joint pains CVS: Denies orthopnea or bipedal edema GI: No abdominal pain, no diarrhea, no vomiting, no constipation Respiratory: Denies shortness of breath, Hospitalist Physical - Physical exam Narrative exam: General.: Appears well, no distress, nontoxic HEENT: Moist mucous membranes, extraocular muscles intact, no lymphadenopathy Neck: supple Cardiac: S1-S2 heard Lungs: Bibasilar crackles Abdomen: soft , nontender, nondistended, bowel sounds positive Extremities: no edema clubbing or cyanosis Skin: no rash or lesions Neurologic: no gross focal deficits Psychiatric: Appropriate calm and cooperative. Judgment intact - Constitutional Vitals: Temp Pulse Resp BP Pulse Ox 97.7 F 77 18 136/86 98 02/09/17 11:45 02/09/17 11:45 02/09/17 11:45 02/09/17 11:45 02/09/17 11:45 General appearance: Present: other (intubated, sedated) Results - Labs CBC & Chem 7: 02/08/17 05:07 02/09/17 07:20 Labs: Laboratory Last Values WBC 5.1 K/mm3 (4.5-11.0) 02/08/17 05:07 RBC 4.50 M/mm3 (3.65-5.03) 02/08/17 05:07 Hgb 12.4 gm/dl (10.1-14.3) 02/08/17 05:07 Hct 38.3 % (30.3-42.9) 02/08/17 05:07 MCV 85 fl (79-97) 02/08/17 05:07 MCH 28 pg (28-32) 02/08/17 05:07 MCHC 32 % (30-34) 02/08/17 05:07 RDW 15.4 % (13.2-15.2) H 02/08/17 05:07 Plt Count 112 K/mm3 (140-440) L 02/08/17 05:07 Lymph % (Auto) 22.8 % (13.4-35.0) 02/08/17 05:07 [place] % (Auto) 8.5 % (0.0-7.3) H 02/08/17 05:07 Eos % (Auto) 10.6 % (0.0-4.3) H 02/08/17 05:07 Baso % (Auto) 1.1 % (0.0-1.8) 02/08/17 05:07 Lymph # 1.2 K/mm3 (1.2-5.4) 02/08/17 05:07 [place] # 0.4 K/mm3 (0.0-0.8) 02/08/17 05:07 Eos # 0.5 K/mm3 (0.0-0.4) H 02/08/17 05:07 Baso # 0.1 K/mm3 (0.0-0.1) 02/08/17 05:07 Seg Neutrophils % 57.0 % (40.0-70.0) 02/08/17 05:07 Seg Neutrophils # 2.9 K/mm3 (1.8-7.7) 02/08/17 05:07 D-Dimer 1146.84 ng/mlDDU (0-234) H 02/01/17 Unknown POC ABG pH 7.434 (7.35-7.45) 02/07/17 08:32 POC ABG pCO2 37.9 (35-45) 02/07/17 08:32 POC ABG pO2 105 (80-105) 02/07/17 08:32 POC ABG HCO3 25.4 02/07/17 08:32 POC ABG Total CO2 27 02/07/17 08:32 POC ABG O2 Sat 98 02/07/17 08:32 POC ABG Base Excess 1 02/07/17 08:32 FiO2 28 % 02/07/17 08:32 Sodium 139 mmol/L (137-145) 02/09/17 07:20 Potassium 3.7 mmol/L (3.6-5.0) 02/09/17 07:20 Chloride 99.0 mmol/L (98-107) 02/09/17 07:20 Carbon Dioxide 24 mmol/L (22-30) 02/09/17 07:20 Anion Gap 20 mmol/L 02/09/17 07:20 BUN 44 mg/dL (7-17) H 02/09/17 07:20 Creatinine 1.1 mg/dL (0.7-1.2) 02/09/17 07:20 Estimated GFR 60 ml/min 02/09/17 07:20 BUN/Creatinine Ratio 40 % 02/09/17 07:20 Glucose 83 mg/dL (65-100) 02/09/17 07:20 POC Glucose 73 (70-105) 02/05/17 12:39 Lactic Acid 1.50 mmol/L (0.7-2.0) 02/03/17 16:58 Calcium 9.2 mg/dL (8.4-10.2) 02/09/17 07:20 Phosphorus 4.00 mg/dL (2.5-4.5) 02/07/17 04:15 Magnesium 2.00 mg/dL (1.7-2.3) 02/08/17 05:07 Total Bilirubin 0.80 mg/dL (0.1-1.2) 02/07/17 04:15 AST 28 units/L (5-40) 02/07/17 04:15 ALT 110 units/L (7-56) H 02/07/17 04:15 Alkaline Phosphatase 62 units/L (35-129) 02/07/17 04:15 Total Creatine Kinase 55 units/L (30-135) 02/05/17 14:57 CK-MB (CK-2) 1.5 ng/mL (0.0-4.0) 02/05/17 14:57 CK-MB (CK-2) Rel Index 2.7 (0-4) 02/05/17 14:57 Troponin T 0.147 ng/mL (0.00-0.029) H* 02/05/17 14:57 NT-Pro-B Natriuret Pep 9824 pg/mL (0-900) H 02/01/17 Unknown Total Protein 7.3 g/dL (6.3-8.2) 02/07/17 04:15 Albumin 3.8 g/dL (3.9-5) L 02/07/17 04:15 Albumin/Globulin Ratio 1.1 % 02/07/17 04:15 Triglycerides 93 mg/dL (2-149) 02/03/17 16:58 Cholesterol 246 mg/dL (50-199) H 02/03/17 16:58 LDL Cholesterol Direct 148 mg/dL (50-130) H 02/03/17 16:58 HDL Cholesterol 80 mg/dL (40-59) H 02/03/17 16:58 Cholesterol/HDL Ratio 3.07 % 02/03/17 16:58 TSH 0.256 mlU/mL (0.270-4.200) L 02/03/17 16:58 Free T4 1.40 ng/dL (0.76-1.46) 02/05/17 04:13 Urine Color Yellow (Yellow) 02/06/17 15:04 Urine Turbidity Clear (Clear) 02/06/17 15:04 Urine pH 6.0 (5.0-7.0) 02/06/17 15:04 Ur Specific [place] 1.014 (1.003-1.030) 02/06/17 15:04 Urine Protein <15 mg/dl mg/dL (Negative) 02/06/17 15:04 Urine Glucose (UA) Neg mg/dL (Negative) 02/06/17 15:04 Urine Ketones 20 mg/dL (Negative) 02/06/17 15:04 Urine Blood Mod (Negative) 02/06/17 15:04 Urine Nitrite Neg (Negative) 02/06/17 15:04 Urine Bilirubin Neg (Negative) 02/06/17 15:04 Urine Urobilinogen < 2.0 mg/dL (<2.0) 02/06/17 15:04 Ur Leukocyte Esterase Neg (Negative) 02/06/17 15:04 Urine WBC (Auto) 2.0 /HPF (0.0-6.0) 02/06/17 15:04 Urine RBC (Auto) 32.0 /HPF (0.0-6.0) 02/06/17 15:04 Urine Bacteria (Auto) 1+ /HPF (Negative) 02/06/17 15:04 Urine Mucus Few /HPF 02/06/17 15:04 Urine Creatinine 62.5 mg/dL (0.1-20.0) H 02/06/17 15:04 Protein/Creatinin Ratio 0.35 02/06/17 15:04 Urine Sodium 130 mmol/L 02/06/17 15:04 Urine Total Protein 22 mg/dL (5-11.8) H 02/06/17 15:04
[2017-02-10 06:10] LABS: Basophils % (Auto) 2.1 % (0.0-1.8); Eosinophils % (Auto) 7.9 % (0.0-4.3); Hematocrit 34.5 % (30.3-42.9); Hemoglobin 11.4 gm/dl (10.1-14.3); Mean Corpuscular HGB Conc 33 % (30-34); Mean Corpuscular Hemoglobin 28 pg (28-32); Mean Corpuscular Volume 86 fl (79-97); Platelet Count 106 K/mm3 (140-440); Red Blood Count 4.01 M/mm3 (3.65-5.03); Red Cell Distribution Width 14.6 % (13.2-15.2); White Blood Count 4.2 K/mm3 (4.5-11.0)
[2017-02-10 06:28] LABS: INR 1.02 (0.87-1.13)
[2017-02-10 06:35] LABS: Chloride 99.6 mmol/L (98-107); Potassium 3.5 mmol/L (3.6-5.0)
[2017-02-10 06:36] LABS: Calcium 8.8 mg/dL (8.4-10.2)
[2017-02-10] MEDS ORDERED: ECOTRIN PO NR (09:00)
[2017-02-10] MEDS ORDERED: NITROGLYCERIN SYRINGE 3 ML ONE (09:31)
[2017-02-10] MEDS ORDERED: HEPARIN 10,000 UNITS/10 ML ONE (09:31)
[2017-02-10] MEDS ORDERED: HEPARIN/NS 5000 UNIT/500ML(CATH LAB) 1,000 ML IR ONE (09:31)
[2017-02-10] MEDS ORDERED: NACL 0.9% 500 ML 500 ML ONE (09:45)
[2017-02-10] MEDS ORDERED: MUCOMYST ORAL PO SCH (10:00)
[2017-02-10] MEDS: SUBLIMAZE ONE ×2 (10:02→10:07)
[2017-02-10] MEDS: VERSED ONE ×2 (10:02→10:07)
[2017-02-10] MEDS: XYLOCAINE 2% INFILTRATI ONE ×2 (10:03→10:07)
[2017-02-10] MEDS: CALAN ONE ×2 (10:04→10:09)
--- NOTE | 2017-02-10 10:34 | Progress Note ---
Assessment and Plan acute systolic heart failure= compensated acute renal injury acute respiratory failure htn rec: no damon or arb secondary to renal insufficency and cont coreg and norvasc and hold diurectis, as cath normal coronaries and ef improved to 45%, normal lvedp,. left message with son and discuss results with pt via line construction superintendent. may discharge from [facility] point of view Subjective Date of service: 02/10/17 Principal diagnosis: Acute respiratory failure Interval history: pt has no sob Objective Vital Signs Temp Pulse Resp BP BP Pulse Ox 02/10/17 09:51 75 02/10/17 07:48 98.4 F 71 18 142/82 96 02/10/17 05:27 97.5 F L 75 20 132/80 97 02/10/17 00:45 97.9 F 79 18 134/87 96 02/09/17 22:45 80 132/88 02/09/17 22:00 76 02/09/17 21:34 95 02/09/17 19:19 98.2 F 80 18 132/88 97 02/09/17 17:00 98.7 F 80 18 134/87 96 02/09/17 11:45 97.7 F 77 18 136/86 98 - Physical Examination General: Other (intubated) HEENT: Positive: PERRL, Normocephaly, Mucus Membranes Moist Neck: Positive: neck supple, trachea midline Cardiac: Positive: Reg Rate and Rhythm Lungs: Positive: clear to auscultation Neuro: Positive: Other (intubated, alert) Abdomen: Positive: Unremarkable, Soft, Active Bowel Sounds. Negative: Tender Skin: Positive: Clear. Negative: Rash Incision: Cardiac Cath Site Musculoskeletal: No Fluid Collection, No Pain, Normal Range of Motion Extremities: Absent: edema - Labs and Meds Coagulation 02/10/17 Range/Units 05:55 PT 13.9 (12.2-14.9) Sec. INR 1.02 (0.87-1.13) CBC 02/10/17 Range/Units 05:55 WBC 4.2 L (4.5-11.0) K/mm3 RBC 4.01 (3.65-5.03) M/mm3 Hgb 11.4 (10.1-14.3) gm/dl Hct 34.5 (30.3-42.9) % Plt Count 106 L (140-440) K/mm3 Lymph # 1.3 (1.2-5.4) K/mm3 Elbert # 0.5 (0.0-0.8) K/mm3 Eos # 0.3 (0.0-0.4) K/mm3 Baso # 0.1 (0.0-0.1) K/mm3 Comprehensive Metabolic Panel 02/10/17 Range/Units 05:55 Sodium 139 (137-145) mmol/L Potassium 3.5 L (3.6-5.0) mmol/L Chloride 99.6 (98-107) mmol/L Carbon Dioxide 24 (22-30) mmol/L BUN 47 H (7-17) mg/dL Creatinine 1.2 (0.7-1.2) mg/dL Glucose 95 (65-100) mg/dL Calcium 8.8 (8.4-10.2) mg/dL - Imaging and Cardiology EKG: report reviewed, image reviewed Echo: report reviewed Cardiac cath: report reviewed (normal coronaires and mild lv dsyfunction ) - EKG Sinus rhythms and dysrhythmias: sinus tachycardia AV and intraventricular conduction: intraventricular conducti Chamber hypertrophy or enlargement: left ventricular hypertro Repolarization changes or abnormalities: early repolarization due to LVH
[2017-02-10] MEDS: PEPCID IV SCH (11:18)
[2017-02-10] MEDS: COREG PO SCH (11:18)
[2017-02-10] MEDS: HCTZ FEEDTUBE SCH (11:19)
[2017-02-10] MEDS: NORVASC PO SCH (11:19)
--- NOTE | 2017-02-10 11:21 | Cardiac Catherization Report ---
LEFT HEART CATHETERIZATION CLINICAL INFORMATION: This 71-year-old female with respiratory failure found with severe LV dysfunction is here for left heart catheterization for acute systolic heart failure to rule out coronary artery disease as the cause of cardiomyopathy. Left heart catheterization was done via the right radial artery, sterile technique, local, and 6-Hungarian radial sheath. Permission was given via a station baggage agent and explained the risks and benefits. PROCEDURE FINDINGS: Left system engaged with JL3.5 catheter. Left main is large and patent and bifurcates into large LAD that is patent proximally and distally. Diagonal 1 is a medium-caliber vessel that is patent with moderate tortuosity. Ramus is a veaxiu-xr-lehky caliber vessel that is patent with moderate tortuosity. Circumflex and AV groove is a ieneui-zq-ciupr caliber that is patent with moderate tortuosity that goes into eipcod-ue-huvlx OM1 that gives qvvhfdgr-ua-wojugc tortuosity. RCA engaged with JR4 is a large caliber vessel with zcsxsvqk-er-jfkguv tortuosity patent from proximally to distally. PDA and PLV is medium-caliber vessel that is patent. LV gram done in [place] and [place] shows only mild LV dysfunction, EF approximately 45%, LVEDP of 15 mmHg, LV is 146, aortic is 144/85. No gradient across the aortic valve on pullback. The 5-Hungarian catheters were taken over the guidewires. The 6-Hungarian radial sheath was discontinued. Radial dressing was applied. No hematoma, no bleeding. SUMMARY: 1. Patent coronaries, sfnilguw-zz-xleqlh tortuosity of vessels. 2. Mild LV dysfunction, LVEDP of 50 mmHg, EF approximately 40%-45%. 3. Continue medical therapy for nonischemic cardiomyopathy. JOB# [id number] JOSH/KIRT
--- NOTE | 2017-02-10 12:53 | Discharge Summary ---
Providers - Providers Date of Admission: 02/02/17 07:35 Attending physician: MARCELINA BECKMAN MD 02/02/17 00:31 Consult to Dietitian/Nutrition [CONS] Routine Physician Instructions: Reason For Exam: Reason for Consult: Evaluate nutritional intake 02/02/17 02:22 Consult to Dietitian/Nutrition [CONS] Routine Physician Instructions: Reason For Exam: Reason for Consult: Evaluate nutritional intake 02/03/17 17:01 Consult to Physician [CONS] Routine Consulting Provider: KARINA DIAZ Reason For Exam: acute congestive heart failure Place consult to:: Cardiology Notified:: answering service Phone number called:: [phone] Was contact made?: Yes If yes, spoke with:: Stephie Time called:: 17:27 02/04/17 00:10 Consult to Dietitian/Nutrition [CONS] Routine Physician Instructions: Reason For Exam: Reason for Consult: Evaluate nutritional intake 02/05/17 13:57 Consult to Dietitian/Nutrition [CONS] Routine Physician Instructions: Reason For Exam: Reason for Consult: Write/Manage Tube Feeding 02/06/17 10:45 Consult to Physician [CONS] Routine Consulting Provider: SARAH CARRIZALES Reason For Exam: STEPHANIE on ? CKD; assistance with diuresis Place consult to:: Dr. Carrizales Notified:: Yes 02/06 Comment:: Was seen by Dr. Carrizales 02/0602/10/17 10:33 Consult to Cardiac Rehabilitation [CONS] Routine Reason For Exam: Cardiac Rehab Evaluation Primary care physician: BLADE ALIGNER Hospitalization Condition: Critical Hospital course: 71-year-old woman who recently came to [place] from [place] brought in via EMS for shortness of breath, altered mental status. She was told that she has heart problems by doctors in her country in the past Acute hypoxic respiratory failure, on MV >96hrs She was initially intubated and placed on mechanical ventilator. Patient was extubated on 02/07/17, doing well, weaned off supplemental oxygen. Acute combined systolic and systolic CHF She received cardiology consultation, she received diuresis, she went on to have a stress test that was negative for ischemia. Her medications optimized Acute kidney injury, vasomotor nephropathy Resolved with diuresis Hypernatremia/free water deficits Resolved with free water replacements. Disposition: TO HOME OR SELFCARE Time spent for discharge: 33 minutes Core Measure Documentation - Palliative Care Palliative Care/ Comfort Measures: Not Applicable - Core Measures Any of the following diagnoses?: heart failure - Heart Failure Discharge Requirements CAIN/ARB for LVSD if EF <40%: No Reason for no CAIN/ARB: Renal impairment Beta nirmala at discharge: Yes Exam - Constitutional Vitals: Temp Pulse Resp BP Pulse Ox 98.4 F 69 18 144/92 98 02/10/17 07:48 02/10/17 10:52 02/10/17 07:48 02/10/17 11:00 02/10/17 10:52 General appearance: Present: no acute distress, well-nourished - EENT Eyes: Present: PERRL ENT: hearing intact, clear oral mucosa - Neck Neck: Present: supple, normal ROM - Respiratory Respiratory effort: normal Respiratory: bilateral: CTA - Cardiovascular Heart Sounds: Present: S1 & S2. Absent: rub, click - Extremities Extremities: pulses symmetrical, No edema Peripheral Pulses: within normal limits - Abdominal General gastrointestinal: Present: soft, non-tender, non-distended, normal bowel sounds Female genitourinary: Present: normal - Integumentary Integumentary: Present: clear, warm, dry - Musculoskeletal Musculoskeletal: gait normal, strength equal bilaterally - Psychiatric Psychiatric: appropriate mood/affect, intact judgment & insight - Neurologic Neurologic: CNII-XII intact, moves all extremities Plan Follow up with: [facility] [Provider Group] - 7 Days PRIMARY CARE, [Primary Care Provider] - 7 Days Prescriptions: amLODIPine [Norvasc] 10 mg PO QDAY #30 tablet Carvedilol [Coreg] 12.5 mg PO BID #60 tablet Hydrochlorothiazide [HCTZ] 12.5 mg PO QDAY #30 tablet
[2017-02-10 17:24] VITALS: BP 147/91
[2017-02-17 13:27] LABS: Heparin-Induced Platelet Antib Negative (Negative); Unfractionated Heparin Negative (Negative)
== END 2017-02-10 18:08 | disposition home or self-care (01) | DRG 871 ==
LOC: ED 23:03 → CC1 02-02 07:35 → 4A 02-08 21:27
PROVIDERS: ADMIT Internal Medicine; ATTEND Internal Medicine
PROC: 4A033R1 Measurement of Arterial Saturation, Peripheral, Percutaneous Approach (ICD-10-PCS; 2017-02-02)
PROC: 3E0234Z Introduction of Serum, Toxoid and Vaccine into Muscle, Percutaneous Approach (ICD-10-PCS; 2017-02-03)
PROC: 5A1945Z Respiratory Ventilation, 24-96 Consecutive Hours (ICD-10-PCS; 2017-02-04)
PROC: 0BH17EZ Insertion of Endotracheal Airway into Trachea, Via Natural or Artificial Opening (ICD-10-PCS; 2017-02-04)
PROC: 4A023N7 Measurement of Cardiac Sampling and Pressure, Left Heart, Percutaneous Approach (ICD-10-PCS; principal; 2017-02-10)
PROC: B2111ZZ Fluoroscopy of Multiple Coronary Arteries using Low Osmolar Contrast (ICD-10-PCS; 2017-02-10)
PROC: B2151ZZ Fluoroscopy of Left Heart using Low Osmolar Contrast (ICD-10-PCS; 2017-02-10)
DX: A41.9 Sepsis, unspecified organism (principal); J18.9 Pneumonia, unspecified organism; J96.01 Acute respiratory failure with hypoxia; N17.0 Acute kidney failure with tubular necrosis; G93.40 Encephalopathy, unspecified; I50.41 Acute combined systolic (congestive) and diastolic (congestive) heart failure; E87.0 Hyperosmolality and hypernatremia; I42.9 Cardiomyopathy, unspecified; I13.0 Hypertensive heart and chronic kidney disease with heart failure and stage 1 through stage 4 chronic kidney disease, or unspecified chronic kidney disease; N18.3 Chronic kidney disease, stage 3 (moderate); I27.20 Pulmonary hypertension, unspecified; D69.6 Thrombocytopenia, unspecified; I25.10 Atherosclerotic heart disease of native coronary artery without angina pectoris; Z23 Encounter for immunization
CPT/HCPCS: 36415; 36600; 70450; 71010; 74000; 76770; 78580; 80048; 80053; 80061; 81001; 82140; 82550; 82553; 82570; 82803; 82962; 83735; 83880; 84100; 84156; 84300; 84439; 84443; 84484; 85025; 85027; 85379; 85610; 86022; 87040; 87070; 87205; 90686; 90732; 93005; 93010; 93306; 93458; 94002; 94003; 94640; 94660; 94760; 96361; 96365; 96366; 96375; 96376; 99291; A9540; C1894; J0171; J0330; J0360; J1205; J1644; J1940; J2250; J2543; J2704; J2920; J2930; J3010; J3370; J7030; J7040; J7050; Q9967